=== PATIENT | female | born 1955 | race Caucasian/White ===

== ENCOUNTER 2020-07-29 06:30 | Inpatient (IN) | payer OTHER, MEDICARE, BC ==
[~2020-07-29] VITALS: Ht 167.6 cm; Wt 88.5 kg
[2020-07-29] VITALS (13 sets, daily range): BP systolic 97–160; BP diastolic 58–118
[~2020-07-29 06:30] MED LIST: AMLO1TAB15 PO; ASPI-611 PO; ATOR20TA PO; CITA20TA19 PO; ETOD-78 PO; METO25TA6 PO
[2020-07-29] MEDS ORDERED: methylPREDNISolone sod succ 125mg/2ml vial IV ONE (06:40)
[2020-07-29] MEDS ORDERED: ipratropium/albuterol 3ml nebule NEB ONE (06:40)
[2020-07-29] MEDS ORDERED: hydrALAZINE 20mg/ml inj. IV ONE (06:45)
[2020-07-29] MEDS ORDERED: midazolam 2 mg/2 ml injection IV ONE ×2 (06:50→08:55)
--- NOTE | 2020-07-29 06:50 | NUR ---
Attempted to call patients charlie at listed number on chart. Unable to get into contact with him so I left a voice mail to call ED back. I was able to unlock patients cell phone and found a Naeem contact. I called him and questioned if he was Charlie South he stated that he was. I continued to update on events prior to arrival at hospital and current care. I stated to Charlie that he can come down to ED and see his , as well as, assist with gathering needed information for patients care. He agreed and stated that he would have his son drive him down.
[2020-07-29] MEDS ORDERED: ipratropium/albuterol 3ml nebule NEB PRN ×2 (06:55→08:55)
--- NOTE | 2020-07-29 07:00 | NUR ---
Lab called regarding negative results of COVID swab. Notified Valeriano SIFUENTES and Sebastian HUERTA regarding results.
[2020-07-29 07:16] LABS: ABG BASE EXCESS -11.3 mmol/L (-2.0-2.0); ABG HCO3 16.9 mmol/L (22.0-26.0); ABG OXYGEN SATURATION 89.7 % (94-97); ABG PCO2 (T) 46.6 mmHg (32.0-45.0); ABG PO2 (T) 71.5 mmHg (75.0-100.0); ALLEN'S TEST POSITIVE; FCOHb 3.3 % (0.0-3.9); FMetHb 0.3 % (0.0-1.5); FO2Hb 86.5 % (94-97); PEEP 5 cm H2O; RESPIRATORY RATE 22 b/min; TIDAL VOLUME 450 mL
[2020-07-29] MEDS: normal saline 1000ml 1,000 ML IV SCH ×2 (07:20→13:11)
[2020-07-29] MEDS ORDERED: CefTRIAXone/D5W-Rocephin 1gm 50 ML IV ONE (07:20)
[2020-07-29] MEDS ORDERED: azithromycin/NS 500mg/250ml 250 ML IV ONE (07:20)
[2020-07-29] MEDS: midazolam 100mg in NS 100ml 100 ML IV PRN (07:21)
[2020-07-29 07:22] LABS: BASOPHILS # (AUTO) 0.1 X10'3 (0-0.2); BASOPHILS % (AUTO) 0.5 % (0-1); EOSINOPHILS # (AUTO) 0.1 X10'3 (0-0.9); EOSINOPHILS % (AUTO) 0.7 % (0-6); HEMATOCRIT 42.6 % (35.0-45.0); HEMOGLOBIN 14.2 g/dl (12.0-16.0); LYMPHOCYTES % (AUTO) 9.7 % (21-51); MEAN CORPUSCULAR HEMOGLOBIN 33.1 PG (27.0-31.0); MEAN CORPUSCULAR HGB CONC 33.4 g/dL (33.0-36.5); MEAN CORPUSCULAR VOLUME 99.3 FL (78-98); MEAN PLATELET VOLUME 8.1 FL (7.4-10.4); MONOCYTES # (AUTO) 0.4 X10'3 (0-0.9); MONOCYTES % (AUTO) 4.2 % (2-12); NEUTROPHILS # (AUTO) 9.1 X10'3 (1.8-7.7); NEUTROPHILS % (AUTO) 84.9 % (42-75); PLATELET COUNT 246 X10'3 (140-440); RED BLOOD COUNT 4.29 X10'6 (4.20-5.60); RED CELL DISTRIBUTION WIDTH 14.6 % (11.5-14.5); WHITE BLOOD COUNT 10.7 X10'3 (4.5-11.0)
[2020-07-29 07:43] LABS: ALANINE AMINOTRANSFERASE 285 U/L (12-78); ALBUMIN 2.6 G/DL (3.4-5.0); ALBUMIN/GLOBULIN RATIO 0.8 (1.1-1.5); ALKALINE PHOSPHATASE 103 IU/L (46-116); ANION GAP 13 (8-16); ASPARTATE AMINO TRANSFERASE 300 U/L (10-37); BILIRUBIN,TOTAL 0.7 MG/DL (0.1-1.0); BLOOD UREA NITROGEN 12 MG/DL (7-18); BUN/CREATININE RATIO 9.9 (6.6-38.0); CALCIUM 9.1 MG/DL (8.5-10.1); CHLORIDE 108 MMOL/L (99-107); CREATININE 1.21 MG/DL (0.40-0.90); GLUCOSE 280 MG/DL (70-104); POTASSIUM 3.7 MMOL/L (3.5-5.1); SODIUM 144 MMOL/L (135-145); TOTAL CARBON DIOXIDE 23.3 MMOL/L (24-32); TOTAL PROTEIN 5.9 G/DL (6.4-8.2); eGFR 45 ML/MIN
[2020-07-29] MEDS ORDERED: calcium chloride 100 MG/1 ML inj IV ONE (08:00)
[2020-07-29] MEDS ORDERED: epiNEPHrine 0.1mg/ml 10ml syringe ONE (08:00)
[2020-07-29] MEDS ORDERED: rocuronium 10mg/ml inj IV ONE (08:00)
[2020-07-29] MEDS ORDERED: sodium bicarbonate (8.4%) 1 mEq/ml syringe ONE (08:00)
[2020-07-29] MEDS: FENTANYL-0.9 % NACL/PF 100 ML IV PRN ×2 (08:01→23:10)
--- NOTE | 2020-07-29 08:25 | NUR ---
Pt arrived via EMS. Had witnessed arrest, was down for approx 5 min. CPR initiated by fire at 610, 4 round of epi given en route, PEA. Prior to arrest pt complained of difficulty breathing. Pt arrived to [facility] ER at 0624. IO in placed but dislodged on arrival (L tibia). CPR continued. RT and MD at bedside. 06 IO initiated 06 1st dose Epi 06 Bicarb 0630 Pulse check (PEA, rocuronium 70mg, intubation initiated 0631 2nd dose epi, CPR resumed 0632 intubation (8mm, 21 at teeth), bilateral breath sounds, positive color change, 0633 calcium chloride 0635 CPR stopped, Pulse check via ultrasound, HR 147, RR 15 0636 Albuterol treatment initiated
--- NOTE | 2020-07-29 08:30 | NUR ---
and son at bedside. Updated on pt condition by .
[2020-07-29] MEDS ORDERED: normal saline 1000ml 1,000 ML IV ONE (08:40)
--- NOTE | 2020-07-29 08:46 | NUR ---
titrated versed from 1mg/hr to 2mg/hr per protocol.
[2020-07-29] MEDS ORDERED: CISatracurium **Bolus** 2 mg/ml inj IV PRN (08:55)
[2020-07-29] MEDS ORDERED: ondansetron/PF 4mg/2ml inj IV PRN (08:55)
[2020-07-29] MEDS ORDERED: fentaNYL/PF 50MCG/1 ML 2ML syringe IV PRN (08:55)
[2020-07-29] MEDS ORDERED: potassium Cl 20 mEq SR tablet PO PRN ×2 (08:55)
[2020-07-29] MEDS ORDERED: acetaminophen 325mg tablet PO PRN ×2 (08:55)
[2020-07-29] MEDS ORDERED: midazolam 100mg in NS 100ml 100 ML IV PRN (08:55)
[2020-07-29] MEDS ORDERED: FENTANYL-0.9 % NACL/PF 100 ML IV PRN (08:55)
[2020-07-29] MEDS ORDERED: LIDOcaine 2% 10ml TOPICAL JELLY (Urojet) TP ONE (08:55)
[2020-07-29] MEDS ORDERED: potassium CL 10mEq/100ml bag 100 ML IV PRN ×2 (08:55)
--- NOTE | 2020-07-29 09:05 | NUR ---
Pt is restless, tachpneic, biting ET tube. Fentanyl titrated from 35mcg/hr to 50 mcg/hr.
--- NOTE | 2020-07-29 09:21 | NUR ---
Versed titrated from 2mg/hr to 3mg/hr
[2020-07-29] MEDS ORDERED: BUPR150T6 PO (09:27)
[2020-07-29] MEDS ORDERED: LOSA100T57 PO (09:27)
[2020-07-29] MEDS ORDERED: CHOL100025 PO (09:30)
[2020-07-29 09:35] LABS: ABG BASE EXCESS -8.6 mmol/L (-2.0-2.0); ABG HCO3 19.7 mmol/L (22.0-26.0); ABG OXYGEN SATURATION 95.4 % (94-97); ABG PCO2 (T) 50.4 mmHg (32.0-45.0); ALLEN'S TEST POSITIVE; FCOHb 1.7 % (0.0-3.9); FMetHb 0.2 % (0.0-1.5); FO2Hb 93.6 % (94-97); PEEP 10 cm H2O; RESPIRATORY RATE 22 b/min; TIDAL VOLUME 475 mL; TOTAL HEMOGLOBIN 16.8 G/dl (12.0-16.0)
--- NOTE | 2020-07-29 10:04 | NUR ---
Pt continues to appear restles, biting ET tube. Versed increased to 4mg/hr. Fentanyl increased to 65mcg/hr.
--- NOTE | 2020-07-29 10:48 | NUR ---
Naeem () ([id number]) cell: [phone] Dakotah (son) [phone]
[2020-07-29] MEDS: ipratropium/albuterol 3ml nebule NEB SCH ×4 (11:28→23:12)
[2020-07-29 11:51] LABS: OXYGEN SATURATION (MIXED VEN) 47.8 % (60-80); PO2 MIXED VENOUS (TEMP COR) 32.8 mmHg (35-46)
[2020-07-29] MEDS ORDERED: dextrose 50%-water 50ml dispensing syringe IV PRN (12:25)
[2020-07-29] MEDS: piperacillin/tazo 3.375gm/50ml 50 ML IV SCH ×2 (12:29→16:18)
[2020-07-29] MEDS ORDERED: ATOR40TA72 PO (13:00)
[2020-07-29] MEDS: insulin Lispro (HumaLOG) vial - multi-dose SQ SCH ×2 (13:00→18:00)
[2020-07-29] MEDS ORDERED: METO-384 PO (13:00)
[2020-07-29] MEDS ORDERED: ALBU18HF2 IH (13:00)
[2020-07-29] MEDS: Insulin Reg/NS 100units/100mL 100 ML IV SCH (13:03)
[2020-07-29] MEDS: CISatracurium besylate inj. 100 MG in normal saline 100ml IV soln 90 ML IV PRN ×2 (13:07→19:02)
[2020-07-29 14:51] LABS: PO2 MIXED VENOUS (TEMP COR) 35.4 mmHg (35-46)
[2020-07-29 14:55] LABS: ABG BASE EXCESS -1.1 mmol/L (-2.0-2.0); ABG HCO3 20.4 mmol/L (22.0-26.0); ABG OXYGEN SATURATION 96.8 % (94-97); ABG PCO2 (T) 25.2 mmHg (32.0-45.0); ABG PO2 (T) 74.6 mmHg (75.0-100.0); ALLEN'S TEST POSITIVE; FCOHb 0.4 % (0.0-3.9); FMetHb 0.2 % (0.0-1.5); FO2Hb 96.2 % (94-97); PATIENT TEMPERATURE 35.6; PEEP 10 cm H2O; RESPIRATORY RATE 22 b/min; TIDAL VOLUME 475 mL; TOTAL HEMOGLOBIN 15.4 G/dl (12.0-16.0)
--- NOTE | 2020-07-29 15:57 | NUR ---
Initial: Pt admit and intubated s/p [id number] cardiac arrest. Pt on hypothermia protocol per H&P. No TF consult at this time. Recommendations below for if expected prolonged intubation and to receive nutrition support. Will continue to follow closely. Recommendations: 1) IF TF, continuous Vital High Protein with goal rate of 60 mL/hr. To begin at 20 mL/hr and advance by 20 mL Q8H as tolerated to goal rate 2) IF TF, additional 200 mL water flush Q4H 3) IF TF, prealbumin q Saturday/; daily weights Addendum: 07/29/20 at [address] Amended: Links added.
[2020-07-29 16:44] LABS: ALBUMIN 2.9 G/DL (3.4-5.0); ANION GAP 13 (8-16); BLOOD UREA NITROGEN 14 MG/DL (7-18); BUN/CREATININE RATIO 16.9 (6.6-38.0); CALCIUM 8.6 MG/DL (8.5-10.1); CHLORIDE 109 MMOL/L (99-107); CREATININE 0.83 MG/DL (0.40-0.90); GLUCOSE 160 MG/DL (70-104); MAGNESIUM 1.8 MG/DL (1.5-2.4); SODIUM 144 MMOL/L (135-145); TOTAL CARBON DIOXIDE 22.2 MMOL/L (24-32); TROPONIN I 0.14 NG/ML (0.0-0.05); eGFR 69 ML/MIN
[2020-07-29 16:45] LABS: POTASSIUM 2.7 MMOL/L (3.5-5.1)
[2020-07-29] MEDS: potassium Cl 20mEq/100mL bag 100 ML IV PRN ×5 (16:54→23:32)
[2020-07-29 17:07] LABS: PHOSPHORUS 2.6 MG/DL (2.3-4.5)
--- NOTE | 2020-07-29 17:10 | NUR ---
Critical K of 2.7; aware to replace per protocol
--- NOTE | 2020-07-29 17:19 | NUR ---
HR maintaining 47-50 bpm with stable blood pressure in the 130s systolic. HR drops as low as 42bpm. Dr. Batres aware with orders to increase goal temperature rate to 34-35degrees Celsius if patient becomes more symptomatic or if HR drops and maintains below 40bpm.
--- NOTE | 2020-07-29 18:18 | NUR ---
Problems reprioritized. Patient report given, questions answered & plan of care reviewed with Abimbola SIFUENTES.
--- NOTE | 2020-07-29 18:30 | NUR ---
Patient in room ICU 2045. I have received report from Rusty SIFUENTES and had the opportunity to ask questions and assume patient care.
[2020-07-29] MEDS ORDERED: docusate sod 100mg capsule PO SCH (20:00)
[2020-07-29] MEDS: lactobacillus rhamnosus 10,000 MMU CELLS/CAPSULE PO SCH (20:07)
[2020-07-29] MEDS: mineral oil/petrolatum ophthal oint EACHEYE SCH (20:07)
[2020-07-29] MEDS: heparin, porcine 5000 units/ml vial SQ SCH (20:07)
[2020-07-29] MEDS: famotidine/PF 10 mg/ml inj IV SCH (20:07)
[2020-07-29 21:16] LABS: ABG BASE EXCESS -3.1 mmol/L (-2.0-2.0); ABG OXYGEN SATURATION 93.3 % (94-97); ABG PCO2 (T) 26.7 mmHg (32.0-45.0); ALLEN'S TEST POSITIVE; FCOHb 0.2 % (0.0-3.9); FMetHb 0.1 % (0.0-1.5); PATIENT TEMPERATURE 33.6; PEEP 5 cm H2O; RESPIRATORY RATE 20 b/min; TIDAL VOLUME 400 mL; TOTAL HEMOGLOBIN 14.9 G/dl (12.0-16.0)
--- NOTE | 2020-07-29 22:00 | NUR ---
Received critical lab values of K 2.9 and Lactic 5.3. Notified Shar Lee NP. New orders received. Will continue to monitor closely.
[2020-07-29 22:16] LABS: ALBUMIN 2.8 G/DL (3.4-5.0); ANION GAP 9 (8-16); BLOOD UREA NITROGEN 14 MG/DL (7-18); BUN/CREATININE RATIO 15.4 (6.6-38.0); CALCIUM 8.9 MG/DL (8.5-10.1); CHLORIDE 108 MMOL/L (99-107); CREATININE 0.91 MG/DL (0.40-0.90); GLUCOSE 148 MG/DL (70-104); MAGNESIUM 1.8 MG/DL (1.5-2.4); SODIUM 142 MMOL/L (135-145); TOTAL CARBON DIOXIDE 24.7 MMOL/L (24-32); eGFR 62 ML/MIN
[2020-07-29 22:18] LABS: POTASSIUM 2.9 MMOL/L (3.5-5.1)
[2020-07-29] MEDS ORDERED: normal saline 500ml IV soln 500 ML IV ONE (22:30)
[2020-07-29] MEDS ORDERED: albumin (Human) 5% 250ml 250 ML IV ONE ×2 (22:30)
[2020-07-30] VITALS (24 sets, daily range): BP systolic 101–138; BP diastolic 52–73
[2020-07-30] MEDS: piperacillin/tazo 3.375gm/50ml 50 ML IV SCH ×3 (00:02→16:06)
[2020-07-30] MEDS: potassium Cl 20mEq/100mL bag 100 ML IV PRN ×4 (00:52→05:45)
[2020-07-30] MEDS: ipratropium/albuterol 3ml nebule NEB SCH ×6 (02:51→23:07)
[2020-07-30 03:11] LABS: ABG BASE EXCESS -5.8 mmol/L (-2.0-2.0); ABG HCO3 18.5 mmol/L (22.0-26.0); ABG OXYGEN SATURATION 92.6 % (94-97); ABG PCO2 (T) 27.9 mmHg (32.0-45.0); ABG PO2 (T) 54.3 mmHg (75.0-100.0); ALLEN'S TEST POSITIVE; FMetHb 0.1 % (0.0-1.5); FO2Hb 92.5 % (94-97); PATIENT TEMPERATURE 33.2; PEEP 5 cm H2O; RESPIRATORY RATE 20 b/min; TIDAL VOLUME 400 mL; TOTAL HEMOGLOBIN 13.5 G/dl (12.0-16.0)
[2020-07-30 03:50] LABS: BASOPHILS % (AUTO) 0.3 % (0-1); EOSINOPHILS % (AUTO) 0 % (0-6); HEMATOCRIT 39.4 % (35.0-45.0); HEMOGLOBIN 13.1 g/dl (12.0-16.0); LYMPHOCYTES # (AUTO) 0.6 X10'3 (1.1-4.8); LYMPHOCYTES % (AUTO) 6.4 % (21-51); MEAN CORPUSCULAR HGB CONC 33.2 g/dL (33.0-36.5); MEAN CORPUSCULAR VOLUME 99.3 FL (78-98); MEAN PLATELET VOLUME 8.2 FL (7.4-10.4); MONOCYTES # (AUTO) 0.9 X10'3 (0-0.9); MONOCYTES % (AUTO) 9.7 % (2-12); NEUTROPHILS # (AUTO) 8.2 X10'3 (1.8-7.7); NEUTROPHILS % (AUTO) 83.6 % (42-75); PLATELET COUNT 177 X10'3 (140-440); RED BLOOD COUNT 3.97 X10'6 (4.20-5.60); RED CELL DISTRIBUTION WIDTH 14.3 % (11.5-14.5); WHITE BLOOD COUNT 9.8 X10'3 (4.5-11.0)
[2020-07-30 04:07] LABS: ALANINE AMINOTRANSFERASE 220 U/L (12-78); ALBUMIN 3.2 G/DL (3.4-5.0); ALKALINE PHOSPHATASE 73 IU/L (46-116); ANION GAP 13 (8-16); ASPARTATE AMINO TRANSFERASE 116 U/L (10-37); BILIRUBIN,TOTAL 0.6 MG/DL (0.1-1.0); BLOOD UREA NITROGEN 12 MG/DL (7-18); BUN/CREATININE RATIO 13.3 (6.6-38.0); CALCIUM 8.6 MG/DL (8.5-10.1); CHLORIDE 109 MMOL/L (99-107); GLUCOSE 124 MG/DL (70-104); MAGNESIUM 1.8 MG/DL (1.5-2.4); PHOSPHORUS 3.1 MG/DL (2.3-4.5); POTASSIUM 3.4 MMOL/L (3.5-5.1); SODIUM 143 MMOL/L (135-145); TOTAL PROTEIN 6.3 G/DL (6.4-8.2); TROPONIN I 0.05 NG/ML (0.0-0.05); eGFR 63 ML/MIN
--- NOTE | 2020-07-30 04:24 | NUR ---
received critical LA 6.2. Notified Shar Lee NP. No new orders, will continue to monitor
[2020-07-30] MEDS: midazolam 100mg in NS 100ml 100 ML IV PRN ×2 (06:11→18:49)
--- NOTE | 2020-07-30 06:17 | NUR ---
Problems reprioritized. Patient report given, questions answered & plan of care reviewed with Rusty SIFUENTES.
--- NOTE | 2020-07-30 07:10 | NUR ---
Critical Lactic Acid 5.7, trending down, MD aware of elevated results
[2020-07-30] MEDS: lactobacillus rhamnosus 10,000 MMU CELLS/CAPSULE PO SCH ×2 (07:28→19:59)
[2020-07-30] MEDS: famotidine/PF 10 mg/ml inj IV SCH ×2 (07:28→19:58)
[2020-07-30] MEDS: heparin, porcine 5000 units/ml vial SQ SCH ×2 (07:29→19:59)
[2020-07-30] MEDS: docusate sodium 100mg/10ml UD cup PO SCH ×2 (07:31→19:58)
[2020-07-30] MEDS: CISatracurium besylate inj. 100 MG in normal saline 100ml IV soln 90 ML IV PRN ×2 (08:02→17:55)
[2020-07-30] MEDS: insulin Lispro (HumaLOG) vial - multi-dose SQ SCH ×2 (08:48→12:02)
[2020-07-30 09:21] LABS: ABG BASE EXCESS -7.3 mmol/L (-2.0-2.0); ABG HCO3 17.1 mmol/L (22.0-26.0); ABG OXYGEN SATURATION 96.7 % (94-97); ABG PCO2 (T) 26.3 mmHg (32.0-45.0); ABG PO2 (T) 73.6 mmHg (75.0-100.0); ALLEN'S TEST POSITIVE; FCOHb 0.3 % (0.0-3.9); FMetHb 0.2 % (0.0-1.5); FO2Hb 96.2 % (94-97); PATIENT TEMPERATURE 32.9; PEEP 5 cm H2O; RESPIRATORY RATE 20 b/min; TIDAL VOLUME 400 mL; TOTAL HEMOGLOBIN 13.6 G/dl (12.0-16.0)
[2020-07-30 09:55] LABS: ALBUMIN 2.8 G/DL (3.4-5.0); ANION GAP 10 (8-16); BLOOD UREA NITROGEN 14 MG/DL (7-18); BUN/CREATININE RATIO 20.9 (6.6-38.0); CALCIUM 8.4 MG/DL (8.5-10.1); CHLORIDE 110 MMOL/L (99-107); CREATININE 0.67 MG/DL (0.40-0.90); GLUCOSE 156 MG/DL (70-104); MAGNESIUM 1.8 MG/DL (1.5-2.4); PHOSPHORUS 3.5 MG/DL (2.3-4.5); POTASSIUM 3.8 MMOL/L (3.5-5.1); SODIUM 141 MMOL/L (135-145); TROPONIN I < 0.04 NG/ML (0.0-0.05); eGFR 88 ML/MIN
[2020-07-30] MEDS: FENTANYL-0.9 % NACL/PF 100 ML IV PRN ×2 (10:10→21:27)
--- NOTE | 2020-07-30 11:00 | NUR ---
Med rec given to Dr. Stevens during rounds to complete.
--- NOTE | 2020-07-30 11:12 | NUR ---
Michele Consult: Michele 11; no edema and skin intact. Addendum: 07/30/20 at [address] Amended: Links added.
[2020-07-30] MEDS: normal saline 1000ml 1,000 ML IV SCH ×2 (11:52→18:50)
--- NOTE | 2020-07-30 12:03 | NUR ---
TF Consult: OGTF to start today per MD. TF recs below using 89kg most accurate scaled wt at this time. Will monitor for EN tolerance and adjustment needs as medically indicated this admit. Recommendations: 1) Continuous OGTF using Vital High Protein at 70mL/hr goal; to provide 1680ml volume, 1411ml free water, 1680 kcals, and 147g protein. 2) additional water flush 200ml Q4H 3) prealbumin q Saturday/; daily weights 4) routine bowel care 5) monitor for EN tolerance Addendum: 07/30/20 at [address] Amended: Links added.
[2020-07-30] MEDS: insulin regular, human U-100 3ml vial - multi-dose SQ SCH ×2 (13:00→17:56)
[2020-07-30 15:24] LABS: ALBUMIN 2.7 G/DL (3.4-5.0); ANION GAP 9 (8-16); BLOOD UREA NITROGEN 12 MG/DL (7-18); CALCIUM 8.8 MG/DL (8.5-10.1); CHLORIDE 111 MMOL/L (99-107); CREATININE 0.63 MG/DL (0.40-0.90); GLUCOSE 110 MG/DL (70-104); MAGNESIUM 1.8 MG/DL (1.5-2.4); PHOSPHORUS 3.5 MG/DL (2.3-4.5); POTASSIUM 3.9 MMOL/L (3.5-5.1); SODIUM 141 MMOL/L (135-145); TOTAL CARBON DIOXIDE 21.5 MMOL/L (24-32); eGFR > 90 ML/MIN
[2020-07-30 16:46] LABS: ABG HCO3 16.5 mmol/L (22.0-26.0); ABG OXYGEN SATURATION 97.8 % (94-97); ABG PCO2 (T) 23.8 mmHg (32.0-45.0); ABG PO2 (T) 81.6 mmHg (75.0-100.0); ALLEN'S TEST POSITIVE; FCOHb 0.2 % (0.0-3.9); FO2Hb 97.6 % (94-97); PEEP 5 cm H2O; RESPIRATORY RATE 20 b/min; TIDAL VOLUME 400 mL; TOTAL HEMOGLOBIN 13.7 G/dl (12.0-16.0)
--- NOTE | 2020-07-30 18:10 | NUR ---
Problems reprioritized. Patient report given, questions answered & plan of care reviewed with Abimbola SIFUENTES.
--- NOTE | 2020-07-30 18:30 | NUR ---
Patient in room ICU 2045. I have received report from Rusty SIFUENTES and had the opportunity to ask questions and assume patient care.
[2020-07-30] MEDS: mineral oil/petrolatum ophthal oint EACHEYE SCH (19:59)
[2020-07-30] MEDS ORDERED: NORepinephrine 8mg/ 250ml NS 250 ML IV ONE (20:33)
--- NOTE | 2020-07-30 20:45 | NUR ---
Patient became hypotensive, notified Shar Lee NP. New orders received for Levo, When Levo started at starting rate patient became hypertensive and bradycardic for approx 2 min. Levo stopped and became hypotensive again. Levo started and lower rate. Will continue to monitor closely.
[2020-07-30] MEDS: NORepinephrine 8mg/ 250ml NS 250 ML IV PRN (21:06)
[2020-07-30 21:11] LABS: ABG BASE EXCESS -6.4 mmol/L (-2.0-2.0); ABG OXYGEN SATURATION 95.8 % (94-97); ABG PCO2 (T) 24.6 mmHg (32.0-45.0); ABG PO2 (T) 67.7 mmHg (75.0-100.0); ALLEN'S TEST POSITIVE; FCOHb 0.2 % (0.0-3.9); FMetHb 0.2 % (0.0-1.5); FO2Hb 95.4 % (94-97); PATIENT TEMPERATURE 33.8; PEEP 5 cm H2O; RESPIRATORY RATE 20 b/min; TIDAL VOLUME 400 mL; TOTAL HEMOGLOBIN 13.6 G/dl (12.0-16.0)
[2020-07-30 21:43] LABS: ALBUMIN 2.7 G/DL (3.4-5.0); ANION GAP 8 (8-16); BLOOD UREA NITROGEN 13 MG/DL (7-18); BUN/CREATININE RATIO 18.6 (6.6-38.0); CALCIUM 8.5 MG/DL (8.5-10.1); CHLORIDE 112 MMOL/L (99-107); GLUCOSE 135 MG/DL (70-104); MAGNESIUM 1.6 MG/DL (1.5-2.4); PHOSPHORUS 3.6 MG/DL (2.3-4.5); SODIUM 141 MMOL/L (135-145); TOTAL CARBON DIOXIDE 21.1 MMOL/L (24-32); eGFR 84 ML/MIN
[2020-07-30] MEDS: Insulin Reg/NS 100units/100mL 100 ML IV SCH (21:45)
[2020-07-30] MEDS ORDERED: albumin (Human) 5% 250ml 250 ML IV ONE ×2 (23:55)
[2020-07-31] VITALS (24 sets, daily range): BP systolic 92–146; BP diastolic 47–80
--- NOTE | 2020-07-31 | NUR ---
Decreased urine output over the course of the last couple hours. Last hour zero urine. Notified Shar Lee NP. New orders received. Will continue to monitor.
[2020-07-31] MEDS: piperacillin/tazo 3.375gm/50ml 50 ML IV SCH ×4 (00:07→23:38)
[2020-07-31] MEDS: mineral oil/petrolatum ophthal oint EACHEYE SCH ×4 (02:06→19:39)
[2020-07-31 03:09] LABS: BASOPHILS % (AUTO) 0.2 % (0-1); EOSINOPHILS % (AUTO) 0.2 % (0-6); HEMOGLOBIN 11.9 g/dl (12.0-16.0); LYMPHOCYTES # (AUTO) 0.9 X10'3 (1.1-4.8); LYMPHOCYTES % (AUTO) 6.4 % (21-51); MEAN CORPUSCULAR HEMOGLOBIN 32.3 PG (27.0-31.0); MEAN CORPUSCULAR HGB CONC 33.1 g/dL (33.0-36.5); MEAN CORPUSCULAR VOLUME 97.5 FL (78-98); MEAN PLATELET VOLUME 8.7 FL (7.4-10.4); MONOCYTES % (AUTO) 6.9 % (2-12); NEUTROPHILS # (AUTO) 12.2 X10'3 (1.8-7.7); NEUTROPHILS % (AUTO) 86.3 % (42-75); PLATELET COUNT 186 X10'3 (140-440); RED BLOOD COUNT 3.69 X10'6 (4.20-5.60); RED CELL DISTRIBUTION WIDTH 14.6 % (11.5-14.5); WHITE BLOOD COUNT 14.2 X10'3 (4.5-11.0)
[2020-07-31 03:26] LABS: ALANINE AMINOTRANSFERASE 146 U/L (12-78); ALBUMIN 3.1 G/DL (3.4-5.0); ALBUMIN/GLOBULIN RATIO 1.1 (1.1-1.5); ALKALINE PHOSPHATASE 57 IU/L (46-116); ANION GAP 9 (8-16); ASPARTATE AMINO TRANSFERASE 43 U/L (10-37); BILIRUBIN,TOTAL 0.6 MG/DL (0.1-1.0); BLOOD UREA NITROGEN 14 MG/DL (7-18); BUN/CREATININE RATIO 18.4 (6.6-38.0); CALCIUM 8.3 MG/DL (8.5-10.1); CHLORIDE 109 MMOL/L (99-107); CREATININE 0.76 MG/DL (0.40-0.90); GLUCOSE 140 MG/DL (70-104); MAGNESIUM 1.6 MG/DL (1.5-2.4); PHOSPHORUS 3.7 MG/DL (2.3-4.5); POTASSIUM 4.2 MMOL/L (3.5-5.1); SODIUM 137 MMOL/L (135-145); TOTAL CARBON DIOXIDE 19.3 MMOL/L (24-32); TOTAL PROTEIN 5.8 G/DL (6.4-8.2); eGFR 76 ML/MIN
[2020-07-31 03:46] LABS: ABG BASE EXCESS -7.1 mmol/L (-2.0-2.0); ABG HCO3 17.4 mmol/L (22.0-26.0); ABG OXYGEN SATURATION 95.7 % (94-97); ABG PCO2 (T) 30.2 mmHg (32.0-45.0); ABG PO2 (T) 76.6 mmHg (75.0-100.0); ALLEN'S TEST POSITIVE; FCOHb 0.3 % (0.0-3.9); FMetHb 0.2 % (0.0-1.5); FO2Hb 95.2 % (94-97); PATIENT TEMPERATURE 35.6; PEEP 5 cm H2O; RESPIRATORY RATE 20 b/min; TIDAL VOLUME 400 mL
--- NOTE | 2020-07-31 03:52 | NUR ---
patient continues to have decreased urine output. Bladder scanned patient and zero urine in bladder. Notified Shar Lee NP. No new orders at this time. Will continue to monitor.
[2020-07-31] MEDS: ipratropium/albuterol 3ml nebule NEB SCH ×6 (03:54→23:08)
[2020-07-31] MEDS: CISatracurium besylate inj. 100 MG in normal saline 100ml IV soln 90 ML IV PRN ×2 (04:23→16:40)
--- NOTE | 2020-07-31 06:27 | NUR ---
Problems reprioritized. Patient report given, questions answered & plan of care reviewed with Bridget SIFUENTES.
--- NOTE | 2020-07-31 07:02 | NUR ---
Patient in room ICU 2045. I have received report from Abimbola SIFUENTES and had the opportunity to ask questions and assume patient care. Addendum: 07/31/20 at 0702 by Bridget Tom RN Amended: Links added.
[2020-07-31] MEDS: heparin, porcine 5000 units/ml vial SQ SCH ×2 (07:32→19:38)
[2020-07-31] MEDS: famotidine/PF 10 mg/ml inj IV SCH ×2 (07:32→19:38)
[2020-07-31] MEDS: lactobacillus rhamnosus 10,000 MMU CELLS/CAPSULE PO SCH ×2 (07:32→19:38)
[2020-07-31] MEDS: docusate sodium 100mg/10ml UD cup PO SCH ×2 (07:33→19:38)
[2020-07-31] MEDS: midazolam 100mg in NS 100ml 100 ML IV PRN ×2 (08:59→19:56)
[2020-07-31] MEDS: FENTANYL-0.9 % NACL/PF 100 ML IV PRN ×2 (09:00→19:57)
[2020-07-31] MEDS: insulin regular, human U-100 3ml vial - multi-dose SQ SCH ×3 (09:00→18:00)
[2020-07-31 09:08] LABS: ALBUMIN 2.5 G/DL (3.4-5.0); ANION GAP 10 (8-16); BLOOD UREA NITROGEN 14 MG/DL (7-18); BUN/CREATININE RATIO 21.9 (6.6-38.0); CALCIUM 6.9 MG/DL (8.5-10.1); CHLORIDE 114 MMOL/L (99-107); CREATININE 0.64 MG/DL (0.40-0.90); GLUCOSE 126 MG/DL (70-104); MAGNESIUM 1.4 MG/DL (1.5-2.4); POTASSIUM 4.1 MMOL/L (3.5-5.1); SODIUM 141 MMOL/L (135-145); TOTAL CARBON DIOXIDE 17.1 MMOL/L (24-32); eGFR > 90 ML/MIN
[2020-07-31 09:20] LABS: ABG BASE EXCESS -7.5 mmol/L (-2.0-2.0); ABG HCO3 17.1 mmol/L (22.0-26.0); ABG OXYGEN SATURATION 94.7 % (94-97); ABG PCO2 (T) 32.2 mmHg (32.0-45.0); ABG PO2 (T) 78.4 mmHg (75.0-100.0); ALLEN'S TEST POSITIVE; FCOHb 0.3 % (0.0-3.9); FMetHb 0.2 % (0.0-1.5); FO2Hb 94.2 % (94-97); PATIENT TEMPERATURE 36.9; PEEP 5 cm H2O; RESPIRATORY RATE 20 b/min; TIDAL VOLUME 400 mL; TOTAL HEMOGLOBIN 13.2 G/dl (12.0-16.0)
--- NOTE | 2020-07-31 12:42 | NUR ---
Weaning Levophed. Dr. Stevens just in to see pt. No changes in ordered plan of care for this shift.
[2020-07-31] MEDS: normal saline 1000ml 1,000 ML IV SCH ×2 (14:15→16:39)
--- NOTE | 2020-07-31 14:43 | NUR ---
Turned Nimbex off and pt. began to stanford the vent with tachycardia, SP02 of 77% and BIS went up to 71. Nimbex turned back on.
[2020-07-31 14:55] LABS: ALBUMIN 2.8 G/DL (3.4-5.0); ANION GAP 6 (8-16); BLOOD UREA NITROGEN 15 MG/DL (7-18); BUN/CREATININE RATIO 17.4 (6.6-38.0); CALCIUM 8.3 MG/DL (8.5-10.1); CHLORIDE 111 MMOL/L (99-107); CREATININE 0.86 MG/DL (0.40-0.90); GLUCOSE 123 MG/DL (70-104); MAGNESIUM 1.7 MG/DL (1.5-2.4); SODIUM 140 MMOL/L (135-145); TOTAL CARBON DIOXIDE 23.5 MMOL/L (24-32); eGFR 66 ML/MIN
[2020-07-31 15:11] LABS: ABG BASE EXCESS -7.9 mmol/L (-2.0-2.0); ABG HCO3 17.5 mmol/L (22.0-26.0); ABG OXYGEN SATURATION 91.1 % (94-97); ABG PCO2 (T) 36.5 mmHg (32.0-45.0); ALLEN'S TEST POSITIVE; FCOHb 0.1 % (0.0-3.9); FMetHb 0.2 % (0.0-1.5); FO2Hb 90.8 % (94-97); PATIENT TEMPERATURE 37.4; PEEP 5 cm H2O; RESPIRATORY RATE 20 b/min; TIDAL VOLUME 400 mL; TOTAL HEMOGLOBIN 13.4 G/dl (12.0-16.0)
--- NOTE | 2020-07-31 18:11 | NUR ---
Problems reprioritized. Patient report given, questions answered & plan of care reviewed with Abimboal SIFUENTES.
--- NOTE | 2020-07-31 18:15 | NUR ---
Patient in room ICU 2045. I have received report from Bridget SIFUENTES and had the opportunity to ask questions and assume patient care.
[2020-07-31 22:09] LABS: ALBUMIN 2.5 G/DL (3.4-5.0); ANION GAP 9 (8-16); BLOOD UREA NITROGEN 14 MG/DL (7-18); BUN/CREATININE RATIO 19.7 (6.6-38.0); CHLORIDE 108 MMOL/L (99-107); CREATININE 0.71 MG/DL (0.40-0.90); GLUCOSE 105 MG/DL (70-104); POTASSIUM 4.3 MMOL/L (3.5-5.1); SODIUM 138 MMOL/L (135-145); TOTAL CARBON DIOXIDE 21.5 MMOL/L (24-32); eGFR 83 ML/MIN
[2020-08-01] VITALS (23 sets, daily range): BP systolic 86–136; BP diastolic 51–70
[2020-08-01] MEDS: mineral oil/petrolatum ophthal oint EACHEYE SCH ×4 (02:11→19:11)
[2020-08-01 02:49] LABS: BASOPHILS % (AUTO) 0.3 % (0-1); EOSINOPHILS # (AUTO) 0.1 X10'3 (0-0.9); EOSINOPHILS % (AUTO) 0.8 % (0-6); HEMATOCRIT 34.2 % (35.0-45.0); HEMOGLOBIN 11.3 g/dl (12.0-16.0); LYMPHOCYTES # (AUTO) 0.8 X10'3 (1.1-4.8); LYMPHOCYTES % (AUTO) 10.7 % (21-51); MEAN CORPUSCULAR HEMOGLOBIN 32.5 PG (27.0-31.0); MEAN CORPUSCULAR VOLUME 98.5 FL (78-98); MEAN PLATELET VOLUME 8.7 FL (7.4-10.4); MONOCYTES # (AUTO) 0.8 X10'3 (0-0.9); MONOCYTES % (AUTO) 10.7 % (2-12); NEUTROPHILS # (AUTO) 5.6 X10'3 (1.8-7.7); NEUTROPHILS % (AUTO) 77.5 % (42-75); PLATELET COUNT 139 X10'3 (140-440); RED BLOOD COUNT 3.47 X10'6 (4.20-5.60); RED CELL DISTRIBUTION WIDTH 14.6 % (11.5-14.5); WHITE BLOOD COUNT 7.2 X10'3 (4.5-11.0)
[2020-08-01] MEDS: ipratropium/albuterol 3ml nebule NEB SCH ×6 (02:58→23:12)
[2020-08-01 03:15] LABS: ALANINE AMINOTRANSFERASE 107 U/L (12-78); ALBUMIN 2.4 G/DL (3.4-5.0); ALBUMIN/GLOBULIN RATIO 0.8 (1.1-1.5); ALKALINE PHOSPHATASE 61 IU/L (46-116); ANION GAP 9 (8-16); ASPARTATE AMINO TRANSFERASE 36 U/L (10-37); BILIRUBIN,TOTAL 0.8 MG/DL (0.1-1.0); BLOOD UREA NITROGEN 12 MG/DL (7-18); BUN/CREATININE RATIO 18.5 (6.6-38.0); CALCIUM 8.1 MG/DL (8.5-10.1); CHLORIDE 106 MMOL/L (99-107); CREATININE 0.65 MG/DL (0.40-0.90); GLUCOSE 107 MG/DL (70-104); MAGNESIUM 1.7 MG/DL (1.5-2.4); PHOSPHORUS 3.8 MG/DL (2.3-4.5); POTASSIUM 4.4 MMOL/L (3.5-5.1); PREALBUMIN 14.6 MG/DL (19-36); SODIUM 136 MMOL/L (135-145); TOTAL CARBON DIOXIDE 21.1 MMOL/L (24-32); TOTAL PROTEIN 5.4 G/DL (6.4-8.2); eGFR > 90 ML/MIN
[2020-08-01 03:16] LABS: ABG BASE EXCESS -4.1 mmol/L (-2.0-2.0); ABG HCO3 19.6 mmol/L (22.0-26.0); ABG OXYGEN SATURATION 95.7 % (94-97); ABG PO2 (T) 78.4 mmHg (75.0-100.0); ALLEN'S TEST POSITIVE; FMetHb 0.1 % (0.0-1.5); FO2Hb 95.6 % (94-97); PATIENT TEMPERATURE 36.7; PEEP 5 cm H2O; RESPIRATORY RATE 20 b/min; TIDAL VOLUME 400 mL; TOTAL HEMOGLOBIN 12.1 G/dl (12.0-16.0)
[2020-08-01] MEDS: CISatracurium besylate inj. 100 MG in normal saline 100ml IV soln 90 ML IV PRN ×2 (04:03→22:24)
--- NOTE | 2020-08-01 06:10 | NUR ---
Problems reprioritized. Patient report given, questions answered & plan of care reviewed with Bridget SIFUENTES.
--- NOTE | 2020-08-01 06:28 | NUR ---
Patient in room ICU 2045. I have received report from Abimbola SIFUENTES and had the opportunity to ask questions and assume patient care. Addendum: 08/01/20 at 0628 by Bridget Tom RN Amended: Links added.
[2020-08-01] MEDS: Insulin Reg/NS 100units/100mL 100 ML IV SCH (07:05)
[2020-08-01] MEDS: docusate sodium 100mg/10ml UD cup PO SCH ×2 (07:08→19:10)
[2020-08-01] MEDS: piperacillin/tazo 3.375gm/50ml 50 ML IV SCH ×3 (07:08→23:50)
[2020-08-01] MEDS: famotidine/PF 10 mg/ml inj IV SCH ×2 (07:08→19:10)
[2020-08-01] MEDS: lactobacillus rhamnosus 10,000 MMU CELLS/CAPSULE PO SCH ×2 (07:08→19:11)
[2020-08-01] MEDS: heparin, porcine 5000 units/ml vial SQ SCH ×2 (07:09→19:11)
[2020-08-01] MEDS: FENTANYL-0.9 % NACL/PF 100 ML IV PRN ×3 (07:17→16:17)
[2020-08-01] MEDS: midazolam 100mg in NS 100ml 100 ML IV PRN ×2 (07:17→13:20)
[2020-08-01] MEDS: insulin regular, human U-100 3ml vial - multi-dose SQ SCH ×3 (08:28→18:00)
--- NOTE | 2020-08-01 09:21 | NUR ---
WOC RN here to asses pt's skin for Low Michele score. . No skin issues observed.
--- NOTE | 2020-08-01 09:50 | NUR ---
Spoke with Ritu step- dtr. who stated that she came from [place] to take care of her father and brother because the pt. usually cares for them. She stated that her brother is an alcoholic and her father takes pain meds and sometimes gets confused and does not keep his info. accurate. 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 Ritu stated that she is trying to find family members to care for her brother and father while her step-mother is in the hospital. RN told Ritu that she would give her number to Dr. Batres and ask that he call her as she has many questions for him.
--- NOTE | 2020-08-01 10:22 | NUR ---
ROUNDS NOTE: RN notified Dr. Batres of stopping the Nimbex yesterday and pt. did not ventilate with SP02 77% and HR 127. Dr. Batres stated to stop the Nimbex and turn up the sedation. Stated to turn down the FI02. Turned down to 30% from 40%.
[2020-08-01] MEDS: methylnaltrexone br 12mg/0.6ml inj***SubQ only SQ SCH (11:04)
--- NOTE | 2020-08-01 11:24 | NUR ---
Pt. SP02 72% with low tidal volumes. Bolused with Fentanyl and Versed, bolused with 100% 02.
[2020-08-01] MEDS: NORepinephrine 8mg/ 250ml NS 250 ML IV PRN (11:35)
--- NOTE | 2020-08-01 11:39 | NUR ---
Levo. started for low BP due to max sedation as pt. was "bucking the vent" and not ventilating.
--- NOTE | 2020-08-01 14:20 | NUR ---
Pt. SP02 has been decreasing along with her BP since the Nimbex was stopped at 1050. RN just notified Dr. Batres of SP02 in the low 80s on 100% FI02 and that Levophed is back on for low BP due to the increase in sedation since the Nimbex is off. He stated "how can that be? She was fine this morning." He stated "thanks for letting me know." commission sales associate aware.
--- NOTE | 2020-08-01 15:22 | NUR ---
Turned pt. and her SP02 dropped to 60s. Bagged pt. for a few minutes. CXR and ABG ordered per Dr. Batres. glass fitter aware. Dr. Batres said to start Nimbex again.
--- NOTE | 2020-08-01 15:47 | NUR ---
RT here to obtain ABG. Sp02 91% on 100% FI02.
[2020-08-01 16:06] LABS: ABG BASE EXCESS -6.3 mmol/L (-2.0-2.0); ABG OXYGEN SATURATION 98.7 % (94-97); ABG PO2 (T) 148.5 mmHg (75.0-100.0); ALLEN'S TEST POSITIVE; FMetHb 0.2 % (0.0-1.5); FO2Hb 98.5 % (94-97); PEEP 5 cm H2O; RESPIRATORY RATE 20 b/min; TIDAL VOLUME 400 mL; TOTAL HEMOGLOBIN 12.9 G/dl (12.0-16.0)
--- NOTE | 2020-08-01 16:07 | NUR ---
ABG results back. FI02 turned down to 80% for P02 of 148.5. Sp02 99% after repositioning pt's head.
[2020-08-01] MEDS: normal saline 1000ml 1,000 ML IV SCH (16:52)
--- NOTE | 2020-08-01 18:13 | NUR ---
Problems reprioritized. Patient report given, questions answered & plan of care reviewed with Alejandra SIFUENTES.
--- NOTE | 2020-08-01 18:15 | NUR ---
Patient in room ICU 2045. I have received report from Bridget SIFUENTES and had the opportunity to ask questions and assume patient care.
[2020-08-02] VITALS (24 sets, daily range): BP systolic 87–113; BP diastolic 46–77
[2020-08-02] MEDS: midazolam 100mg in NS 100ml 100 ML IV PRN ×3 (02:57→15:43)
[2020-08-02] MEDS: FENTANYL-0.9 % NACL/PF 100 ML IV PRN ×3 (02:58→17:18)
[2020-08-02] MEDS: mineral oil/petrolatum ophthal oint EACHEYE SCH ×4 (03:03→19:04)
[2020-08-02 03:14] LABS: BASOPHILS % (AUTO) 0.4 % (0-1); EOSINOPHILS # (AUTO) 0.1 X10'3 (0-0.9); EOSINOPHILS % (AUTO) 1.6 % (0-6); HEMOGLOBIN 10.3 g/dl (12.0-16.0); LYMPHOCYTES # (AUTO) 0.5 X10'3 (1.1-4.8); LYMPHOCYTES % (AUTO) 12.3 % (21-51); MEAN CORPUSCULAR HEMOGLOBIN 32.3 PG (27.0-31.0); MEAN CORPUSCULAR HGB CONC 33.4 g/dL (33.0-36.5); MEAN CORPUSCULAR VOLUME 96.9 FL (78-98); MEAN PLATELET VOLUME 9.5 FL (7.4-10.4); MONOCYTES # (AUTO) 0.5 X10'3 (0-0.9); MONOCYTES % (AUTO) 11.3 % (2-12); NEUTROPHILS # (AUTO) 3.1 X10'3 (1.8-7.7); NEUTROPHILS % (AUTO) 74.4 % (42-75); PLATELET COUNT 132 X10'3 (140-440); RED CELL DISTRIBUTION WIDTH 14.6 % (11.5-14.5); WHITE BLOOD COUNT 4.2 X10'3 (4.5-11.0)
[2020-08-02 03:23] LABS: ALANINE AMINOTRANSFERASE 86 U/L (12-78); ALBUMIN 1.9 G/DL (3.4-5.0); ALBUMIN/GLOBULIN RATIO 0.6 (1.1-1.5); ALKALINE PHOSPHATASE 64 IU/L (46-116); ANION GAP 11 (8-16); ASPARTATE AMINO TRANSFERASE 39 U/L (10-37); BLOOD UREA NITROGEN 12 MG/DL (7-18); BUN/CREATININE RATIO 17.1 (6.6-38.0); CALCIUM 8.1 MG/DL (8.5-10.1); CHLORIDE 103 MMOL/L (99-107); GLUCOSE 115 MG/DL (70-104); MAGNESIUM 1.7 MG/DL (1.5-2.4); PHOSPHORUS 3.4 MG/DL (2.3-4.5); POTASSIUM 3.9 MMOL/L (3.5-5.1); SODIUM 135 MMOL/L (135-145); TOTAL CARBON DIOXIDE 20.9 MMOL/L (24-32); TOTAL PROTEIN 5.2 G/DL (6.4-8.2); eGFR 84 ML/MIN
[2020-08-02] MEDS: ipratropium/albuterol 3ml nebule NEB SCH ×6 (04:10→23:18)
[2020-08-02 04:26] LABS: ABG BASE EXCESS -4.6 mmol/L (-2.0-2.0); ABG OXYGEN SATURATION 92.6 % (94-97); ABG PCO2 (T) 40.6 mmHg (32.0-45.0); ABG PO2 (T) 70.9 mmHg (75.0-100.0); ALLEN'S TEST POSITIVE; FCOHb 0.2 % (0.0-3.9); FMetHb 0.1 % (0.0-1.5); FO2Hb 92.3 % (94-97); PATIENT TEMPERATURE 37.1; PEEP 5 cm H2O; RESPIRATORY RATE 20 b/min; TIDAL VOLUME 400 mL; TOTAL HEMOGLOBIN 11.9 G/dl (12.0-16.0)
--- NOTE | 2020-08-02 06:10 | NUR ---
Problems reprioritized. Patient report given, questions answered & plan of care reviewed with Bridget SIFUENTES.
[2020-08-02] MEDS: normal saline 1000ml 1,000 ML IV SCH ×2 (06:15→06:27)
--- NOTE | 2020-08-02 06:20 | NUR ---
Patient in room ICU 2045. I have received report from Alejandra SIFUENTES and had the opportunity to ask questions and assume patient care. Addendum: 08/02/20 at 0621 by Bridget Tom RN Amended: Links added.
[2020-08-02] MEDS: docusate sodium 100mg/10ml UD cup PO SCH (07:22)
[2020-08-02] MEDS: famotidine/PF 10 mg/ml inj IV SCH ×2 (07:22→19:03)
[2020-08-02] MEDS: lactobacillus rhamnosus 10,000 MMU CELLS/CAPSULE PO SCH (07:22)
[2020-08-02] MEDS: piperacillin/tazo 3.375gm/50ml 50 ML IV SCH ×3 (07:23→23:50)
[2020-08-02] MEDS: heparin, porcine 5000 units/ml vial SQ SCH ×2 (07:23→19:04)
[2020-08-02] MEDS: insulin regular, human U-100 3ml vial - multi-dose SQ SCH ×3 (07:29→17:18)
[2020-08-02] MEDS: CISatracurium besylate inj. 100 MG in normal saline 100ml IV soln 90 ML IV PRN ×2 (08:27→23:50)
--- NOTE | 2020-08-02 08:46 | NUR ---
BG this am was 67. Treated with 1/2 amp D50. BG came up to 99. Pt. not tolerating tube feedings. Residual was 320cc at 0800. Nimbex decreased to 1mcg with BIS in the 30-40s.
[2020-08-02] MEDS: furosemide 40mg/4ml inj IV SCH ×2 (08:57→19:03)
--- NOTE | 2020-08-02 09:28 | NUR ---
Dr. Batres in to see patient. Stated her CXR looks a little "wet" and the plan is to diurese patient and try to dc Nimbex and wake pt. up eventually.
[2020-08-02] MEDS ORDERED: potassium Cl 20 mEq SR tablet OGT PRN ×2 (10:45)
--- NOTE | 2020-08-02 10:46 | NUR ---
Reassessment: Pt TF at goal w/ GRV's consistently 300's though also no BM yet this admit 4 days. Relistor started yesterday and pt receiving routine colace; constipation likely to impact GRV's. Glu 67 this AM; previously receiving insulin drip now off per EMR. No hx DM. Probiotic held for WBC 4.2 today per RN. Attempting to wean nimbex to further determine mental status per MD. +12g wt this admit likely r/t 12L positive fluid balance. Will continue to monitor for EN tolerance and additional protein needs this admit. Recommendations: 1) Continuous OGTF using Vital High Protein at 70mL/hr goal; to provide 1680ml volume, 1411ml free water, 1680 kcals, and 147g protein. 2) additional water flush 200ml Q4H 3) prealbumin q Saturday/; daily weights 4) routine bowel care; opioid antagonist per remote sensing advisor Addendum: 08/02/20 at [address] Amended: Links added.
--- NOTE | 2020-08-02 13:33 | NUR ---
Levophed started at 1300 for decreased BP.
[2020-08-02] MEDS: NORepinephrine 8mg/ 250ml NS 250 ML IV PRN (15:49)
[2020-08-02] MEDS: Insulin Reg/NS 100units/100mL 100 ML IV SCH (16:25)
--- NOTE | 2020-08-02 18:03 | NUR ---
Problems reprioritized. Patient report given, questions answered & plan of care reviewed with Marion SIFUENTES.
--- NOTE | 2020-08-02 18:15 | NUR ---
Patient in room ICU 2045. I have received report from Bridget SIFUENTES and had the opportunity to ask questions and assume patient care.
[2020-08-02] MEDS: docusate sodium 100mg/10ml UD cup OGT SCH (19:04)
[2020-08-03] VITALS (24 sets, daily range): BP systolic 88–121; BP diastolic 40–65
[2020-08-03] MEDS: FENTANYL-0.9 % NACL/PF 100 ML IV PRN ×8 (00:43→23:43)
[2020-08-03 02:54] LABS: BASOPHILS % (AUTO) 0.4 % (0-1); EOSINOPHILS # (AUTO) 0.1 X10'3 (0-0.9); EOSINOPHILS % (AUTO) 1.8 % (0-6); HEMATOCRIT 31.1 % (35.0-45.0); HEMOGLOBIN 10.7 g/dl (12.0-16.0); LYMPHOCYTES # (AUTO) 0.4 X10'3 (1.1-4.8); LYMPHOCYTES % (AUTO) 8.6 % (21-51); MEAN CORPUSCULAR HEMOGLOBIN 33.3 PG (27.0-31.0); MEAN CORPUSCULAR HGB CONC 34.4 g/dL (33.0-36.5); MEAN PLATELET VOLUME 9.2 FL (7.4-10.4); MONOCYTES # (AUTO) 1.2 X10'3 (0-0.9); MONOCYTES % (AUTO) 24.9 % (2-12); NEUTROPHILS % (AUTO) 64.3 % (42-75); PLATELET COUNT 155 X10'3 (140-440); RED BLOOD COUNT 3.21 X10'6 (4.20-5.60); RED CELL DISTRIBUTION WIDTH 14.7 % (11.5-14.5); WHITE BLOOD COUNT 4.7 X10'3 (4.5-11.0)
[2020-08-03] MEDS: mineral oil/petrolatum ophthal oint EACHEYE SCH ×4 (02:54→19:39)
[2020-08-03] MEDS: midazolam 100mg in NS 100ml 100 ML IV PRN ×5 (02:55→22:50)
[2020-08-03 02:57] LABS: ALANINE AMINOTRANSFERASE 67 U/L (12-78); ALBUMIN 1.8 G/DL (3.4-5.0); ALBUMIN/GLOBULIN RATIO 0.4 (1.1-1.5); ALKALINE PHOSPHATASE 68 IU/L (46-116); ANION GAP 10 (8-16); ASPARTATE AMINO TRANSFERASE 26 U/L (10-37); BILIRUBIN,TOTAL 0.7 MG/DL (0.1-1.0); BLOOD UREA NITROGEN 12 MG/DL (7-18); BUN/CREATININE RATIO 13.8 (6.6-38.0); CALCIUM 8.1 MG/DL (8.5-10.1); CHLORIDE 97 MMOL/L (99-107); CREATININE 0.87 MG/DL (0.40-0.90); GLUCOSE 132 MG/DL (70-104); MAGNESIUM 1.4 MG/DL (1.5-2.4); PHOSPHORUS 4.1 MG/DL (2.3-4.5); POTASSIUM 3.5 MMOL/L (3.5-5.1); SODIUM 135 MMOL/L (135-145); TOTAL CARBON DIOXIDE 28.2 MMOL/L (24-32); eGFR 65 ML/MIN
[2020-08-03] MEDS: ipratropium/albuterol 3ml nebule NEB SCH ×6 (02:59→23:13)
[2020-08-03] MEDS ORDERED: magnesium 4gm in 100ml NS 100 ML IV PRN (04:10)
[2020-08-03] MEDS ORDERED: magnesium Cl slow-release 64mg tablet PO PRN (04:10)
[2020-08-03] MEDS ORDERED: magnesium 2GM in 50ml NS 50 ML IV PRN (04:10)
--- NOTE | 2020-08-03 06:30 | NUR ---
REPORT FROM CANELO SIFUENTES
--- NOTE | 2020-08-03 06:43 | NUR ---
Problems reprioritized. Patient report given, questions answered & plan of care reviewed with Haylee SIFUENTES.
[2020-08-03] MEDS: heparin, porcine 5000 units/ml vial SQ SCH ×2 (07:27→19:40)
[2020-08-03] MEDS: famotidine/PF 10 mg/ml inj IV SCH ×2 (07:31→19:39)
[2020-08-03] MEDS: furosemide 40mg/4ml inj IV SCH ×2 (07:36→19:39)
[2020-08-03] MEDS: piperacillin/tazo 3.375gm/50ml 50 ML IV SCH ×2 (07:39→15:27)
[2020-08-03] MEDS: docusate sodium 100mg/10ml UD cup OGT SCH ×2 (07:39→19:39)
[2020-08-03] MEDS: methylnaltrexone br 12mg/0.6ml inj***SubQ only SQ SCH (07:40)
[2020-08-03] MEDS: insulin regular, human U-100 3ml vial - multi-dose SQ SCH ×3 (09:00→17:03)
[2020-08-03] MEDS: NORepinephrine 8mg/ 250ml NS 250 ML IV PRN (13:17)
[2020-08-03] MEDS: propofol 1000mg/100ml bottle 100 ML IV SCH (15:26)
--- NOTE | 2020-08-03 18:25 | NUR ---
Patient in room ICU 2045. I have received report from Haylee SIFUENTES and had the opportunity to ask questions and assume patient care.
[2020-08-03] MEDS: acetaminophen 325mg tablet OGT PRN (19:40)
[2020-08-04] VITALS (24 sets, daily range): BP systolic 98–126; BP diastolic 46–64
[2020-08-04] MEDS: piperacillin/tazo 3.375gm/50ml 50 ML IV SCH ×4 (00:11→23:41)
[2020-08-04] MEDS: Insulin Reg/NS 100units/100mL 100 ML IV SCH (01:45)
--- NOTE | 2020-08-04 01:57 | NUR ---
Contacted donor network about patient in case neurologic function does not return and family decides on comfort care.
[2020-08-04] MEDS: ipratropium/albuterol 3ml nebule NEB SCH ×6 (03:09→22:47)
[2020-08-04 03:20] LABS: ABG BASE EXCESS 3.6 mmol/L (-2.0-2.0); ABG HCO3 28.4 mmol/L (22.0-26.0); ABG OXYGEN SATURATION 95.6 % (94-97); ABG PO2 (T) 79.8 mmHg (75.0-100.0); ALLEN'S TEST POSITIVE; FMetHb 0.1 % (0.0-1.5); FO2Hb 95.5 % (94-97); PATIENT TEMPERATURE 36.5; PEEP 5 cm H2O; RESPIRATORY RATE 20 b/min; TIDAL VOLUME 400 mL; TOTAL HEMOGLOBIN 11.7 G/dl (12.0-16.0)
[2020-08-04] MEDS: mineral oil/petrolatum ophthal oint EACHEYE SCH ×4 (03:42→19:59)
[2020-08-04 03:49] LABS: BASOPHILS % (AUTO) 0.7 % (0-1); RED BLOOD COUNT 3.16 X10'6 (4.20-5.60); RED CELL DISTRIBUTION WIDTH 14.2 % (11.5-14.5)
[2020-08-04 03:51] LABS: EOSINOPHILS # (AUTO) 0.2 X10'3 (0-0.9); EOSINOPHILS % (AUTO) 2.4 % (0-6); HEMATOCRIT 30.5 % (35.0-45.0); HEMOGLOBIN 10.7 g/dl (12.0-16.0); LYMPHOCYTES # (AUTO) 0.7 X10'3 (1.1-4.8); LYMPHOCYTES % (AUTO) 10.4 % (21-51); MEAN CORPUSCULAR HEMOGLOBIN 33.7 PG (27.0-31.0); MEAN CORPUSCULAR VOLUME 96.3 FL (78-98); MONOCYTES # (AUTO) 1.7 X10'3 (0-0.9); MONOCYTES % (AUTO) 25.9 % (2-12); NEUTROPHILS # (AUTO) 3.9 X10'3 (1.8-7.7); NEUTROPHILS % (AUTO) 60.6 % (42-75); PLATELET COUNT 210 X10'3 (140-440); WHITE BLOOD COUNT 6.5 X10'3 (4.5-11.0)
[2020-08-04 04:02] LABS: ALANINE AMINOTRANSFERASE 54 U/L (12-78); ALBUMIN 1.9 G/DL (3.4-5.0); ALBUMIN/GLOBULIN RATIO 0.5 (1.1-1.5); ALKALINE PHOSPHATASE 73 IU/L (46-116); ANION GAP 7 (8-16); ASPARTATE AMINO TRANSFERASE 24 U/L (10-37); BILIRUBIN,TOTAL 0.8 MG/DL (0.1-1.0); BLOOD UREA NITROGEN 13 MG/DL (7-18); BUN/CREATININE RATIO 15.7 (6.6-38.0); CALCIUM 9.3 MG/DL (8.5-10.1); CHLORIDE 104 MMOL/L (99-107); CREATININE 0.83 MG/DL (0.40-0.90); GLUCOSE 131 MG/DL (70-104); MAGNESIUM 2.1 MG/DL (1.5-2.4); PHOSPHORUS 3.7 MG/DL (2.3-4.5); POTASSIUM 3.3 MMOL/L (3.5-5.1); PREALBUMIN 9.4 MG/DL (19-36); SODIUM 142 MMOL/L (135-145); TOTAL CARBON DIOXIDE 31.2 MMOL/L (24-32); TOTAL PROTEIN 6.1 G/DL (6.4-8.2); TRIGLYCERIDES 205 MG/DL (20-135); eGFR 69 ML/MIN
[2020-08-04] MEDS: midazolam 100mg in NS 100ml 100 ML IV PRN ×3 (04:27→14:43)
[2020-08-04] MEDS: FENTANYL-0.9 % NACL/PF 100 ML IV PRN ×7 (04:28→21:05)
--- NOTE | 2020-08-04 06:30 | NUR ---
Report received from odilia RN
[2020-08-04 06:31] LABS: TOTAL CELLS COUNTED 100
[2020-08-04 06:32] LABS: PLATELET ESTIMATE NORMAL; POLYCHROMASIA 1+; TOXIC GRANULATION 1+
--- NOTE | 2020-08-04 07:00 | NUR ---
Problems reprioritized. Patient report given, questions answered & plan of care reviewed with Astrid SIFUENTES.
[2020-08-04] MEDS: docusate sodium 100mg/10ml UD cup OGT SCH ×2 (08:43→19:58)
[2020-08-04] MEDS: famotidine/PF 10 mg/ml inj IV SCH ×2 (08:43→19:59)
[2020-08-04] MEDS: furosemide 40mg/4ml inj IV SCH ×2 (08:43→19:58)
[2020-08-04] MEDS: heparin, porcine 5000 units/ml vial SQ SCH ×2 (08:44→19:59)
[2020-08-04] MEDS: propofol 1000mg/100ml bottle 100 ML IV SCH ×3 (08:47→20:52)
[2020-08-04] MEDS: insulin regular, human U-100 3ml vial - multi-dose SQ SCH ×3 (09:00→16:21)
[2020-08-04] MEDS: potassium Cl 20mEq/100mL bag 100 ML IV PRN ×3 (10:06→23:38)
--- NOTE | 2020-08-04 10:36 | NUR ---
Noted pt TF held for GRV 525 yesterday afternoon; now restarted at 50ml/hr w/ GRV WNL per EMR. LUZ MARIA d/w RN regarding additional bowel care if MD agreeable given no BM yet 6 days this admit and already receiving routine colace/relistor. Addendum: 08/04/20 at [address] Amended: Links added.
--- NOTE | 2020-08-04 18:27 | NUR ---
Report given to MARIA French.
[2020-08-05] VITALS (24 sets, daily range): BP systolic 87–144; BP diastolic 44–74
[2020-08-05] MEDS: FENTANYL-0.9 % NACL/PF 100 ML IV PRN ×6 (00:31→22:52)
[2020-08-05] MEDS: potassium Cl 20mEq/100mL bag 100 ML IV PRN (01:05)
[2020-08-05] MEDS: mineral oil/petrolatum ophthal oint EACHEYE SCH ×4 (02:01→19:33)
[2020-08-05] MEDS: ipratropium/albuterol 3ml nebule NEB SCH ×6 (02:58→23:08)
[2020-08-05 03:31] LABS: ABG BASE EXCESS 5.3 mmol/L (-2.0-2.0); ABG HCO3 28.9 mmol/L (22.0-26.0); ABG OXYGEN SATURATION 94.9 % (94-97); ABG PCO2 (T) 39.7 mmHg (32.0-45.0); ALLEN'S TEST POSITIVE; FCOHb 0.3 % (0.0-3.9); FMetHb 0.1 % (0.0-1.5); FO2Hb 94.5 % (94-97); PATIENT TEMPERATURE 37.7; PEEP 5 cm H2O; RESPIRATORY RATE 20 b/min; TIDAL VOLUME 400 mL; TOTAL HEMOGLOBIN 10.9 G/dl (12.0-16.0)
[2020-08-05 03:35] LABS: BASOPHILS % (AUTO) 0.5 % (0-1); EOSINOPHILS # (AUTO) 0.1 X10'3 (0-0.9); EOSINOPHILS % (AUTO) 1.8 % (0-6); HEMATOCRIT 29.8 % (35.0-45.0); HEMOGLOBIN 10.1 g/dl (12.0-16.0); LYMPHOCYTES # (AUTO) 0.8 X10'3 (1.1-4.8); LYMPHOCYTES % (AUTO) 11.9 % (21-51); MEAN CORPUSCULAR HEMOGLOBIN 32.4 PG (27.0-31.0); MEAN CORPUSCULAR HGB CONC 33.9 g/dL (33.0-36.5); MEAN CORPUSCULAR VOLUME 95.6 FL (78-98); MEAN PLATELET VOLUME 8.7 FL (7.4-10.4); MONOCYTES # (AUTO) 1.1 X10'3 (0-0.9); MONOCYTES % (AUTO) 17.7 % (2-12); NEUTROPHILS # (AUTO) 4.4 X10'3 (1.8-7.7); NEUTROPHILS % (AUTO) 68.1 % (42-75); PLATELET COUNT 205 X10'3 (140-440); RED BLOOD COUNT 3.12 X10'6 (4.20-5.60); RED CELL DISTRIBUTION WIDTH 14.2 % (11.5-14.5); WHITE BLOOD COUNT 6.4 X10'3 (4.5-11.0)
[2020-08-05 03:48] LABS: ALANINE AMINOTRANSFERASE 55 U/L (12-78); ALBUMIN 1.8 G/DL (3.4-5.0); ALBUMIN/GLOBULIN RATIO 0.4 (1.1-1.5); ALKALINE PHOSPHATASE 101 IU/L (46-116); ANION GAP 3 (8-16); ASPARTATE AMINO TRANSFERASE 42 U/L (10-37); BILIRUBIN,TOTAL 0.9 MG/DL (0.1-1.0); BLOOD UREA NITROGEN 15 MG/DL (7-18); BUN/CREATININE RATIO 17.6 (6.6-38.0); CALCIUM 9.1 MG/DL (8.5-10.1); CHLORIDE 103 MMOL/L (99-107); CREATININE 0.85 MG/DL (0.40-0.90); GLUCOSE 137 MG/DL (70-104); PHOSPHORUS 3.5 MG/DL (2.3-4.5); POTASSIUM 3.6 MMOL/L (3.5-5.1); SODIUM 138 MMOL/L (135-145); TOTAL CARBON DIOXIDE 31.7 MMOL/L (24-32); TOTAL PROTEIN 6.1 G/DL (6.4-8.2); eGFR 67 ML/MIN
[2020-08-05 04:00] LABS: PLATELET ESTIMATE NORMAL; TOTAL CELLS COUNTED 100
[2020-08-05] MEDS: NORepinephrine 8mg/ 250ml NS 250 ML IV PRN ×2 (04:00→22:51)
[2020-08-05] MEDS: propofol 1000mg/100ml bottle 100 ML IV SCH ×4 (04:58→19:31)
--- NOTE | 2020-08-05 06:30 | NUR ---
Patient in room ICU 2045. I have received report from Manolo and had the opportunity to ask questions and assume patient care.
[2020-08-05] MEDS: heparin, porcine 5000 units/ml vial SQ SCH ×2 (07:39→19:29)
[2020-08-05] MEDS: furosemide 40mg/4ml inj IV SCH ×2 (07:39→19:29)
[2020-08-05] MEDS: famotidine/PF 10 mg/ml inj IV SCH ×2 (07:39→19:29)
[2020-08-05] MEDS: docusate sodium 100mg/10ml UD cup OGT SCH ×2 (07:39→19:29)
[2020-08-05] MEDS: methylnaltrexone br 12mg/0.6ml inj***SubQ only SQ SCH (07:40)
[2020-08-05] MEDS: insulin regular, human U-100 3ml vial - multi-dose SQ SCH ×3 (09:00→18:00)
[2020-08-05] MEDS: piperacillin/tazo 3.375gm/50ml 50 ML IV SCH ×3 (09:20→23:53)
--- NOTE | 2020-08-05 10:37 | NUR ---
Reassessment: Patient remains intubated. Tube feed has been advanced to goal of 70 mL/hr and GRV 120-220 mL over the last 24 hours which is WNL. Still no BM since admit, receiving routine Colace and Relistor. D/w RN who reports pt now with active bowel sounds and passing gas. Hopeful for a BM soon. Will continue to follow closely. Recommendations: 1) Continuous OGTF using Vital High Protein at 70mL/hr goal; to provide 1680ml volume, 1411ml water, 1680 kcals, and 147g protein. 2) additional water flush 200ml Q4H 3) prealbumin q Saturday/; daily weights 4) routine bowel care; opioid antagonist per public relations director Addendum: 08/05/20 at [address] Amended: Links added.
[2020-08-05] MEDS: Insulin Reg/NS 100units/100mL 100 ML IV SCH (11:05)
[2020-08-05 12:16] LABS: ABG BASE EXCESS 5.7 mmol/L (-2.0-2.0); ABG HCO3 28.4 mmol/L (22.0-26.0); ABG OXYGEN SATURATION 99.5 % (94-97); ABG PCO2 (T) 35.9 mmHg (32.0-45.0); ABG PO2 (T) 256.5 mmHg (75.0-100.0); ALLEN'S TEST POSITIVE; FCOHb 0.3 % (0.0-3.9); FMetHb 0.3 % (0.0-1.5); FO2Hb 98.9 % (94-97); PEEP 5 cm H2O; RESPIRATORY RATE 20 b/min; TIDAL VOLUME 400 mL; TOTAL HEMOGLOBIN 11.4 G/dl (12.0-16.0)
[2020-08-05] MEDS: acetaminophen 325mg tablet OGT PRN (12:35)
--- NOTE | 2020-08-05 22:05 | NUR ---
RN Note -Central line leaking. New peripheral IV started for sedation. Levophed moved to brown port. Able to go down on sedation and Levophed.
[2020-08-06] VITALS (24 sets, daily range): BP systolic 96–131; BP diastolic 44–66
[2020-08-06] MEDS: mineral oil/petrolatum ophthal oint EACHEYE SCH ×4 (02:00→20:47)
--- NOTE | 2020-08-06 02:30 | NUR ---
RN Note -PT's called. Would like update from doctor.
[2020-08-06] MEDS: ipratropium/albuterol 3ml nebule NEB SCH ×6 (03:12→22:38)
[2020-08-06] MEDS: acetaminophen 325mg tablet OGT PRN ×2 (03:21→15:09)
[2020-08-06] MEDS: propofol 1000mg/100ml bottle 100 ML IV SCH ×3 (03:21→22:43)
[2020-08-06 03:51] LABS: ABG BASE EXCESS 5.7 mmol/L (-2.0-2.0); ABG HCO3 30.3 mmol/L (22.0-26.0); ABG OXYGEN SATURATION 92.8 % (94-97); ABG PCO2 (T) 46.1 mmHg (32.0-45.0); ALLEN'S TEST POSITIVE; FCOHb 0.1 % (0.0-3.9); FMetHb 0.1 % (0.0-1.5); FO2Hb 92.6 % (94-97); PEEP 5 cm H2O; RESPIRATORY RATE 20 b/min; TIDAL VOLUME 400 mL; TOTAL HEMOGLOBIN 11.1 G/dl (12.0-16.0)
[2020-08-06 05:46] LABS: BASOPHILS % (AUTO) 0.4 % (0-1); EOSINOPHILS # (AUTO) 0.2 X10'3 (0-0.9); EOSINOPHILS % (AUTO) 1.9 % (0-6); HEMATOCRIT 28.9 % (35.0-45.0); HEMOGLOBIN 9.9 g/dl (12.0-16.0); LYMPHOCYTES # (AUTO) 0.6 X10'3 (1.1-4.8); LYMPHOCYTES % (AUTO) 6.9 % (21-51); MEAN CORPUSCULAR HEMOGLOBIN 32.9 PG (27.0-31.0); MEAN CORPUSCULAR HGB CONC 34.3 g/dL (33.0-36.5); MEAN CORPUSCULAR VOLUME 95.9 FL (78-98); MEAN PLATELET VOLUME 8.9 FL (7.4-10.4); MONOCYTES # (AUTO) 1.3 X10'3 (0-0.9); MONOCYTES % (AUTO) 13.6 % (2-12); NEUTROPHILS # (AUTO) 7.1 X10'3 (1.8-7.7); NEUTROPHILS % (AUTO) 77.2 % (42-75); PLATELET COUNT 243 X10'3 (140-440); RED BLOOD COUNT 3.02 X10'6 (4.20-5.60); RED CELL DISTRIBUTION WIDTH 14.4 % (11.5-14.5); WHITE BLOOD COUNT 9.2 X10'3 (4.5-11.0)
[2020-08-06 05:52] LABS: ALANINE AMINOTRANSFERASE 63 U/L (12-78); ALBUMIN 1.7 G/DL (3.4-5.0); ALBUMIN/GLOBULIN RATIO 0.4 (1.1-1.5); ALKALINE PHOSPHATASE 103 IU/L (46-116); ANION GAP 10 (8-16); ASPARTATE AMINO TRANSFERASE 43 U/L (10-37); BILIRUBIN,TOTAL 0.8 MG/DL (0.1-1.0); BLOOD UREA NITROGEN 17 MG/DL (7-18); BUN/CREATININE RATIO 21.5 (6.6-38.0); CALCIUM 9.3 MG/DL (8.5-10.1); CHLORIDE 100 MMOL/L (99-107); CREATININE 0.79 MG/DL (0.40-0.90); GLUCOSE 148 MG/DL (70-104); MAGNESIUM 2.1 MG/DL (1.5-2.4); PHOSPHORUS 4.4 MG/DL (2.3-4.5); SODIUM 140 MMOL/L (135-145); TOTAL CARBON DIOXIDE 30.4 MMOL/L (24-32); TOTAL PROTEIN 6.4 G/DL (6.4-8.2); eGFR 73 ML/MIN
[2020-08-06 05:54] LABS: POTASSIUM 2.8 MMOL/L (3.5-5.1)
--- NOTE | 2020-08-06 06:30 | NUR ---
Patient in room ICU 2045. I have received report from [facility] and had the opportunity to ask questions and assume patient care.
[2020-08-06] MEDS: heparin, porcine 5000 units/ml vial SQ SCH ×2 (08:23→20:47)
[2020-08-06] MEDS: docusate sodium 100mg/10ml UD cup OGT SCH ×2 (08:23→20:47)
[2020-08-06] MEDS: famotidine/PF 10 mg/ml inj IV SCH ×2 (08:23→20:47)
[2020-08-06] MEDS: furosemide 40mg/4ml inj IV SCH ×2 (08:23→20:47)
[2020-08-06] MEDS: piperacillin/tazo 3.375gm/50ml 50 ML IV SCH ×2 (08:23→15:05)
[2020-08-06] MEDS: insulin regular, human U-100 3ml vial - multi-dose SQ SCH ×3 (09:00→18:00)
[2020-08-06] MEDS: FENTANYL-0.9 % NACL/PF 100 ML IV PRN ×3 (09:39→17:55)
[2020-08-06] MEDS: potassium Cl 20mEq/100mL bag 100 ML IV PRN ×4 (10:31→16:09)
[2020-08-06] MEDS: Insulin Reg/NS 100units/100mL 100 ML IV SCH (20:25)
[2020-08-07] VITALS (24 sets, daily range): BP systolic 90–149; BP diastolic 41–71
[2020-08-07] MEDS: piperacillin/tazo 3.375gm/50ml 50 ML IV SCH ×3 (00:12→15:29)
[2020-08-07] MEDS: mineral oil/petrolatum ophthal oint EACHEYE SCH ×4 (02:00→20:48)
[2020-08-07] MEDS: ipratropium/albuterol 3ml nebule NEB SCH ×6 (02:58→22:59)
[2020-08-07 03:20] LABS: ABG BASE EXCESS 8.1 mmol/L (-2.0-2.0); ABG HCO3 33.6 mmol/L (22.0-26.0); ABG PCO2 (T) 52.8 mmHg (32.0-45.0); ABG PO2 (T) 85.5 mmHg (75.0-100.0); ALLEN'S TEST POSITIVE; FCOHb 0.3 % (0.0-3.9); FMetHb 0.2 % (0.0-1.5); FO2Hb 95.5 % (94-97); PATIENT TEMPERATURE 37.3; PEEP 5 cm H2O; RESPIRATORY RATE 20 b/min; TIDAL VOLUME 400 mL; TOTAL HEMOGLOBIN 10.7 G/dl (12.0-16.0)
--- NOTE | 2020-08-07 06:30 | NUR ---
Patient in room ICU 2045. I have received report from [facility] and had the opportunity to ask questions and assume patient care.
[2020-08-07] MEDS: propofol 1000mg/100ml bottle 100 ML IV SCH ×5 (06:46→20:47)
[2020-08-07] MEDS: heparin, porcine 5000 units/ml vial SQ SCH ×2 (07:59→20:49)
[2020-08-07] MEDS: famotidine/PF 10 mg/ml inj IV SCH ×2 (08:00→20:48)
[2020-08-07] MEDS: docusate sodium 100mg/10ml UD cup OGT SCH ×2 (08:00→20:49)
[2020-08-07] MEDS: methylnaltrexone br 12mg/0.6ml inj***SubQ only SQ SCH (08:00)
[2020-08-07] MEDS: furosemide 40mg/4ml inj IV SCH ×2 (08:00→20:48)
[2020-08-07 08:26] LABS: BASOPHILS % (AUTO) 0.2 % (0-1); EOSINOPHILS # (AUTO) 0.2 X10'3 (0-0.9); EOSINOPHILS % (AUTO) 1.8 % (0-6); HEMATOCRIT 29.7 % (35.0-45.0); LYMPHOCYTES # (AUTO) 0.9 X10'3 (1.1-4.8); LYMPHOCYTES % (AUTO) 8.2 % (21-51); MEAN CORPUSCULAR HGB CONC 33.6 g/dL (33.0-36.5); MEAN CORPUSCULAR VOLUME 95.3 FL (78-98); MEAN PLATELET VOLUME 8.6 FL (7.4-10.4); MONOCYTES % (AUTO) 8.8 % (2-12); NEUTROPHILS # (AUTO) 9.1 X10'3 (1.8-7.7); PLATELET COUNT 309 X10'3 (140-440); RED BLOOD COUNT 3.12 X10'6 (4.20-5.60); RED CELL DISTRIBUTION WIDTH 14.5 % (11.5-14.5); WHITE BLOOD COUNT 11.2 X10'3 (4.5-11.0)
[2020-08-07 08:32] LABS: ALANINE AMINOTRANSFERASE 68 U/L (12-78); ALBUMIN 1.8 G/DL (3.4-5.0); ALBUMIN/GLOBULIN RATIO 0.4 (1.1-1.5); ALKALINE PHOSPHATASE 105 IU/L (46-116); ANION GAP 3 (8-16); ASPARTATE AMINO TRANSFERASE 35 U/L (10-37); BILIRUBIN,TOTAL 0.7 MG/DL (0.1-1.0); BLOOD UREA NITROGEN 22 MG/DL (7-18); BUN/CREATININE RATIO 32.4 (6.6-38.0); CHLORIDE 99 MMOL/L (99-107); CREATININE 0.68 MG/DL (0.40-0.90); GLUCOSE 134 MG/DL (70-104); MAGNESIUM 2.1 MG/DL (1.5-2.4); PHOSPHORUS 4.1 MG/DL (2.3-4.5); POTASSIUM 3.6 MMOL/L (3.5-5.1); SODIUM 137 MMOL/L (135-145); TOTAL PROTEIN 6.7 G/DL (6.4-8.2); eGFR 87 ML/MIN
[2020-08-07 08:36] LABS: CALCIUM 9.4 MG/DL (8.5-10.1)
[2020-08-07] MEDS: insulin regular, human U-100 3ml vial - multi-dose SQ SCH ×3 (09:00→17:50)
[2020-08-07] MEDS: FENTANYL-0.9 % NACL/PF 100 ML IV PRN (16:48)
--- NOTE | 2020-08-07 19:00 | NUR ---
REVIEWED WITH SHREYAS DEE NP RE: BP/LEVOPHED, ALBUMIN LEVEL IS 1.7 AND H/H 7.6/23. NO NEW ORDERS REGARDING THESE . QUESTIONED WHETHER TO GIVE COLACE AND SENNA THEY HAVE BEEN HELD PREVIOUSLY. PER SHREYAS, NITIN - OK TO GIVE. PATIENT HAS HAS BOWEL MOVEMENTS THE PREVIOUS SHIFT ALSO PER REPORT. REMINDED NITIN PRITCHETT PATIENT IS ON NO ABX AT THIS TIME - REVIEWED LATEST MICRO RESULTS WITH HER. NO NEW ORDERS. FROM REPORT AT SHIFT CHANGE, MARIA LEGGETT REPORTED TO ME TO DC DOMI CATHETER HOWEVER THERE IS NO ORDER. DR. SOTO MENTIONED IN HIS PROGRESS NOTES THAT HE WOULD DC THIS CATHETER BUT AGAIN - THERE IS NO ORDER. CLARIFIED WITH NITIN PRITCHETT WHETHER THIS LINE IS TO BE DC'D. PER NITIN PRITCHETT WE WILL WAIT TO CLARIFY ON ROUNDS IN AM. SHE WILL ALSO CLARIFY ABX STATUS IN AM WELL. Addendum: 08/08/20 at 0111 by Juni Alan RN PLEASE DISREGARD THE ABOVE NOTE - IT WAS WRITTEN IN ERROR /WRONG PATIENT
--- NOTE | 2020-08-07 19:30 | NUR ---
UPON ASSESSMENT - PATIENTS ABDOMEN NOTED TO BE QUITE DISTENDED AND SLIGHTLY FIRM. PEG TUBE WAS CLAMPED FOR MEDS GIVEN PREVIOUS SHIFT. PEG SITE LEAKING MODERATE AMOUNT BROWN BILIOUS IN BED. NEW TUBING AND NEW CANISTER PLACED. OLD CANISTER HAD MARKING THAT SHOWED AT 350 ML. PRIOR TO TOSSING CANISTER - 100 MORE ML BROWN BILIOUS WAS IN CANISTER. NOTED THAT [employer] DID NOT TAKE CREDIT FOR THIS 100 ML SO I DID ON MY SHIFT PRIOR TO CHANGING TO A NEW CANISTER. # 22 PIV TO LEFT WRIST D/C'D. PUFFY AND DIFFICULT TO FLUSH. NEURO - NOTED LEFT PUPIL 1 MM AND RIGHT PUPIL 1.5 MM. BOTH REACTIVE TO LIGHT. PATIENT OPENS EYES TO NAME BUT DOES NOT MAKE EYE CONTACT. DOES NOT STICK TONGUE OUT ON COMMAND. DOES NOT TRACK. VERSED GTT 1.5 MG/HR, FENTANYL 75 UG/HR. PATIENT IS IN NO DISTRESS AND NO S/SX PAIN. COURSE BREATH SOUNDS B/L, SXN SM [place]/WHITE. VSS, AFEBRILE, U/O MARGINAL GABBY. RIGHT FEMORAL DOMI - CDI - DRESSING NOT DATED, LEFT FEMORAL A-LINE. DRESSING CDI, RIGHT SC QLC - CDI, Addendum: 08/08/20 at 0108 by Juni Alan RN AFTER DISCUSSING WITH SEPTEMBER ENVIRONMENTAL ADVISER REGARDING THE DISTENDED ABDOMEN AND LEAKING PEG SITE - I DID NOT GIVE THE PT SENNA OR COLACE. Addendum: 08/08/20 at 0112 by Juni Alan RN PLEASE DISREGARD THE ABOVE NOTE - IT WAS WRITTEN IN ERROR /WRONG PATIENT
--- NOTE | 2020-08-07 20:00 | NUR ---
PATIENT ASSESSED. NEUROLOGICALLY PATIENT DOES NOTHING TO PAINFUL STIMULI ACCEPT MOVE MOUTH A LITTLE. SHE DOES NOT WITHDRAW OR POSTURE TO CENTRAL STIMULUS. PATIENT DOES OVER BREATH THE VENT & AT TIMES TACHYPNIC IN THE 30 'S AND WITH COUGHING FITS THOUGH COUGH IS EXTREMELY WEAK. SEEMS TO SETTLE DOWN ON HER OWN WITHOUT INTERVENTION ACCEPT TO SUCTION. THERE IS NOTHING THAT PRECEDES THE EPISODE. COUGH IS EXTREMELY WEAK, NO GAG. NO CORNEAL REFLEXES NOTED. GERALD 2 MM - RIGHT PUPIL BRISKLY REACTIVE TO LIGHT, LEFT PUPIL VERY DELAYED AND SLUGGING EVEN THEN. LARGE AMOUNT OF CLEAR ORAL SECRETIONS. NO S/SX PAIN OR DISTRESS. TOLERATING VENT SETTINGS. VSS. RESIDUALS FOR TF = 275 ML. NO STOOL, NO FLATUS NOTED. ABDOMEN IS SOFT. U/O IS EXCELLENT, CLEAR YELLOW
--- NOTE | 2020-08-07 21:00 | NUR ---
FULL BED AND BATH. LOTION APPLIES ALL OVER BODY. WITH THE HELP OF 2 RN'S, (OPERATIONS INTELLIGENCE SUPERINTENDENT TO TURN, RESOURCE RN TO STABILIZE NECK WHILE PHILI COLLAR WAS REMOVED) I ASSESSED TOTAL NECK SKIN/BACK OF HEAD. PATIENT HAD A PACKED WOUND AT C-4 SITE ON POSTERIOR NECK - DRESSING WAS DATED 08/04. I REMOVED THE PACKING AND APPLIED NEW NS W->D WITH DSD COVERING. WOUND WAS PROBABLY 1/4 IN OR SO DEEP. I DID NOT HAVE A MEASURING DEVICE AT THE TIME. THIS WOUND WAS NOT REPORTED IN REPORT SO I WAS UNPREPARED WHILE REMOVING THE COLLAR. A SCAR TO FRONT RIGHT NECK NOTED BUT NOT OPEN. OCCIPITAL AREA WITH AREA OF SHAVED HAIR WITH A SMALL SCAR AT THE CENTER. IT WAS NOT OPEN. TOTAL NECK CLEANED FRONT AND BACK - COLLAR CLEANED AND REPLACED. DTI TO LEFT FLANK - OFFLY SHAPED - OPTIFOAM APPLIED. DIME SIZED SKIN TEAR TO LEFT LOWER BUTTOCK FOLD (INTO THE THIGH), OPTIFOAM APPLIED. OPTIFOAM ON SACRUM - REMOVED TO ASSESS - TINY OPEN AREA AT DISTAL TAILBONE. SMALL AREA MAY BE DTI TO RIGHT OF SACRUM. PATIENT IS TURNED LEFT SIDE OR RIGHT SIDE. NEVER ON COCCYX. I WILL REQUEST WOUND CARE TO ASSESS FOR PERHAPS A SPECIALTY BED - CURRENTLY ON AIR EQUALIZING MATTRESS. LOTION APPLIED TO ENTIRE BODY.. HEELS AND ARMS ON PILLOWS. PATIENT IS ALWAYS CHECKED FOR ANY PRESSURE ISSUES RELATED TO MONITOR WIRES/ALEX/SCD/VENT IV LINES ETC. EXTREMITIES ALWAYS MADE SURE TO BE POSITIONED PROPERLY ESPECIALLY RECHECKING AFTER TURNS PATIENT IS A NEW QUADRIPLEGIC AND UNABLE TO SENSE PRESSURE/POSITIONING ISSUES. Addendum: 08/08/20 at 0114 by Juni Alan RN PLEASE DISREGARD THE ABOVE NOTE - IT WAS WRITTEN IN ERROR /WRONG PATIENT
--- NOTE | 2020-08-07 23:00 | NUR ---
GLADYS FROM [employer] CALLED TO GET LATEST UPDATES ON THIS PATIENT (TRACEY HARO).
[2020-08-08] VITALS (22 sets, daily range): BP systolic 90–121; BP diastolic 43–60
[2020-08-08] MEDS: piperacillin/tazo 3.375gm/50ml 50 ML IV SCH ×3 (00:30→16:24)
[2020-08-08] MEDS: Insulin Reg/NS 100units/100mL 100 ML IV SCH (02:52)
[2020-08-08] MEDS: mineral oil/petrolatum ophthal oint EACHEYE SCH ×4 (02:52→19:38)
[2020-08-08] MEDS: ipratropium/albuterol 3ml nebule NEB SCH ×6 (03:05→23:13)
[2020-08-08 03:16] LABS: BASOPHILS # (AUTO) 0.1 X10'3 (0-0.2); BASOPHILS % (AUTO) 0.4 % (0-1); EOSINOPHILS # (AUTO) 0.2 X10'3 (0-0.9); EOSINOPHILS % (AUTO) 1.8 % (0-6); HEMATOCRIT 28.1 % (35.0-45.0); HEMOGLOBIN 9.5 g/dl (12.0-16.0); LYMPHOCYTES % (AUTO) 7.2 % (21-51); MEAN CORPUSCULAR VOLUME 94.2 FL (78-98); MEAN PLATELET VOLUME 8.2 FL (7.4-10.4); MONOCYTES % (AUTO) 7.4 % (2-12); NEUTROPHILS # (AUTO) 11.4 X10'3 (1.8-7.7); NEUTROPHILS % (AUTO) 83.2 % (42-75); PLATELET COUNT 369 X10'3 (140-440); RED BLOOD COUNT 2.98 X10'6 (4.20-5.60); RED CELL DISTRIBUTION WIDTH 14.4 % (11.5-14.5); WHITE BLOOD COUNT 13.7 X10'3 (4.5-11.0)
[2020-08-08 03:31] LABS: ALANINE AMINOTRANSFERASE 63 U/L (12-78); ALBUMIN 1.8 G/DL (3.4-5.0); ALBUMIN/GLOBULIN RATIO 0.4 (1.1-1.5); ALKALINE PHOSPHATASE 110 IU/L (46-116); ANION GAP 3 (8-16); ASPARTATE AMINO TRANSFERASE 39 U/L (10-37); BILIRUBIN,TOTAL 0.6 MG/DL (0.1-1.0); BLOOD UREA NITROGEN 24 MG/DL (7-18); CALCIUM 9.1 MG/DL (8.5-10.1); CHLORIDE 98 MMOL/L (99-107); GLUCOSE 145 MG/DL (70-104); POTASSIUM 3.1 MMOL/L (3.5-5.1); PREALBUMIN 13.2 MG/DL (19-36); SODIUM 138 MMOL/L (135-145); TOTAL CARBON DIOXIDE 36.7 MMOL/L (24-32); TOTAL PROTEIN 6.5 G/DL (6.4-8.2); eGFR 72 ML/MIN
[2020-08-08 03:50] LABS: ABG BASE EXCESS 8.1 mmol/L (-2.0-2.0); ABG HCO3 32.8 mmol/L (22.0-26.0); ABG OXYGEN SATURATION 95.2 % (94-97); ABG PCO2 (T) 48.8 mmHg (32.0-45.0); ABG PO2 (T) 79.4 mmHg (75.0-100.0); ALLEN'S TEST POSITIVE; FCOHb 0.3 % (0.0-3.9); FO2Hb 94.9 % (94-97); PEEP 5 cm H2O; RESPIRATORY RATE 20 b/min; TIDAL VOLUME 400 mL; TOTAL HEMOGLOBIN 10.4 G/dl (12.0-16.0)
[2020-08-08] MEDS: propofol 1000mg/100ml bottle 100 ML IV SCH ×5 (04:11→19:41)
[2020-08-08] MEDS: potassium Cl 20mEq/100mL bag 100 ML IV PRN ×2 (06:02→07:06)
--- NOTE | 2020-08-08 06:30 | NUR ---
Patient in room ICU 2045. I have received report from Juni SIFUENTES and had the opportunity to ask questions and assume patient care.
[2020-08-08] MEDS: FENTANYL-0.9 % NACL/PF 100 ML IV PRN ×2 (07:07→19:40)
[2020-08-08] MEDS: furosemide 40mg/4ml inj IV SCH ×2 (08:00→19:38)
[2020-08-08] MEDS: docusate sodium 100mg/10ml UD cup OGT SCH ×2 (08:15→19:38)
[2020-08-08] MEDS: famotidine/PF 10 mg/ml inj IV SCH ×2 (08:15→19:38)
[2020-08-08] MEDS: heparin, porcine 5000 units/ml vial SQ SCH ×2 (08:16→19:39)
[2020-08-08] MEDS: insulin regular, human U-100 3ml vial - multi-dose SQ SCH ×3 (08:20→17:38)
--- NOTE | 2020-08-08 11:54 | NUR ---
F/u 08/08: Pt tolerating TF at goal GRV WNL. Still no BM 10 days receiving routine colace and relistor. Pending MRI today to determine if pt to wake per network controller today. Receiving propofol at 40ml/hr and electrolyte replacement per protocol. Will continue to monitor. Recommendations: 1) Continuous OGTF using Vital High Protein at 70mL/hr goal; to provide 1680ml volume, 1411ml water, 1680 kcals, and 147g protein. 2) additional water flush 200ml Q4H 3) prealbumin q Saturday/; daily weights 4) routine bowel care; opioid antagonist per network controller Addendum: 08/08/20 at [address] Amended: Links added.
[2020-08-08] MEDS ORDERED: NORepinephrine 8mg/ 250ml NS 250 ML IV ONE (12:03)
--- NOTE | 2020-08-08 13:50 | NUR ---
patient preped and ready to go to [facility] for MRI, dial flow for propofol and fentanyl flowing at correct rate, RT bedside waiting for [facility] for transport
--- NOTE | 2020-08-08 14:35 | NUR ---
Patient taken to MRI at [facility] via EMS transport.
[2020-08-08] MEDS ORDERED: CISatracurium besylate 100 MG in NS 100ml IV IV PRN (15:10)
--- NOTE | 2020-08-08 15:17 | NUR ---
PT LEFT FOR MRI AT [facility] WITH AKI RN, EASTON SERVER ADMINISTRATOR, AND DARRELL. PT GOT INTO THE HALLWAY OF THE ICU BEFORE HER HR JUMPED TO 155 AND HER BP 265/120 WHILE BEING BAGGED WITH 100% FIO2 WITH BMV. RN, DARRELL, SERVER ADMINISTRATOR DECIDED CONTINUING WITH THE TRANSPORT WOULD BE DETRIMENTAL TO THE PT SO THE PT RETURNED TO HER ROOM AND PLACED BACK ON THE VENT 100% FIO2. SPO2 REMAINS 90%. PT HR COMING DOWN AND BP STABILIZING. Addendum: 08/08/20 at 1520 by Afshan Rojo RT Amended: Links added.
--- NOTE | 2020-08-08 15:20 | NUR ---
In hallway waiting for elevator, patient became tachycardic 156 and hypertensive 251/129, double checked all lines sedation not infusing as it was, opened lines, flushed and re connected patient. Dial a flow not flowing at rate as indicated on meter, adjusted again, and it began to flow as it should rechecked vital signs hr 153 blood pressure 265/142. conferred with soldering machine tender and RT patient is now mottled in lower extremities decided to return to ICU and stabilize patients heart rate and blood pressure. Informed DR. Batres of the events stated to start nimbex. Patient back in room back on monitor and ventilator, patient sating in the low 80% increased patients fi02 to 100% now sating 90%. Vital signs improving, blood pressure and heart rate still high but coming down. Talked with charge nurse stated it is likely due to a neuro response, called jez to cancel MRI appointment
[2020-08-08] MEDS: levetiracetam inj 1,000 MG in normal saline 100ml IV soln 90 ML IV SCH ×2 (15:26→19:38)
--- NOTE | 2020-08-08 18:11 | NUR ---
Problems reprioritized. Patient report given, questions answered & plan of care reviewed with Juni SIFUENTES.
--- NOTE | 2020-08-08 22:30 | NUR ---
ARLENE FROM [employer] CALLED FOR LATEST UPDATE
[2020-08-09] VITALS (25 sets, daily range): BP systolic 82–130; BP diastolic 38–64
[2020-08-09] MEDS: piperacillin/tazo 3.375gm/50ml 50 ML IV SCH ×4 (00:05→23:36)
[2020-08-09] MEDS: propofol 1000mg/100ml bottle 100 ML IV SCH ×7 (00:07→20:35)
[2020-08-09] MEDS: acetaminophen 325mg tablet OGT PRN ×2 (01:02→20:59)
[2020-08-09] MEDS: mineral oil/petrolatum ophthal oint EACHEYE SCH ×4 (01:49→20:30)
[2020-08-09] MEDS ORDERED: NORepinephrine 8mg/ 250ml NS 250 ML IV ONE (02:17)
--- NOTE | 2020-08-09 02:25 | NUR ---
given that patient is going to MRI in the am - attempted to leave levophed off and allow patient to possibly recover on own however map <60 x 1 hr now. called september elaine hadoop administrator to update. new order for levophed given. bp 82/39
[2020-08-09 02:43] LABS: BASOPHILS # (AUTO) 0.1 X10'3 (0-0.2); BASOPHILS % (AUTO) 0.5 % (0-1); EOSINOPHILS # (AUTO) 0.2 X10'3 (0-0.9); EOSINOPHILS % (AUTO) 1.4 % (0-6); HEMATOCRIT 25.9 % (35.0-45.0); HEMOGLOBIN 8.7 g/dl (12.0-16.0); LYMPHOCYTES # (AUTO) 1.2 X10'3 (1.1-4.8); LYMPHOCYTES % (AUTO) 7.1 % (21-51); MEAN CORPUSCULAR HEMOGLOBIN 31.9 PG (27.0-31.0); MEAN CORPUSCULAR HGB CONC 33.7 g/dL (33.0-36.5); MEAN CORPUSCULAR VOLUME 94.8 FL (78-98); MEAN PLATELET VOLUME 8.3 FL (7.4-10.4); MONOCYTES # (AUTO) 1.2 X10'3 (0-0.9); MONOCYTES % (AUTO) 7.2 % (2-12); NEUTROPHILS # (AUTO) 13.7 X10'3 (1.8-7.7); NEUTROPHILS % (AUTO) 83.8 % (42-75); PLATELET COUNT 364 X10'3 (140-440); RED BLOOD COUNT 2.73 X10'6 (4.20-5.60); RED CELL DISTRIBUTION WIDTH 14.2 % (11.5-14.5); WHITE BLOOD COUNT 16.4 X10'3 (4.5-11.0)
[2020-08-09 03:04] LABS: ALANINE AMINOTRANSFERASE 68 U/L (12-78); ALBUMIN 1.7 G/DL (3.4-5.0); ALBUMIN/GLOBULIN RATIO 0.4 (1.1-1.5); ALKALINE PHOSPHATASE 113 IU/L (46-116); ANION GAP 7 (8-16); ASPARTATE AMINO TRANSFERASE 44 U/L (10-37); BLOOD UREA NITROGEN 29 MG/DL (7-18); BUN/CREATININE RATIO 36.7 (6.6-38.0); CHLORIDE 98 MMOL/L (99-107); CREATININE 0.79 MG/DL (0.40-0.90); GLUCOSE 113 MG/DL (70-104); MAGNESIUM 2.1 MG/DL (1.5-2.4); PHOSPHORUS 4.6 MG/DL (2.3-4.5); POTASSIUM 3.1 MMOL/L (3.5-5.1); SODIUM 139 MMOL/L (135-145); TOTAL CARBON DIOXIDE 34.2 MMOL/L (24-32); TOTAL PROTEIN 6.2 G/DL (6.4-8.2); eGFR 73 ML/MIN
[2020-08-09 03:19] LABS: BILIRUBIN,TOTAL 0.6 MG/DL (0.1-1.0)
[2020-08-09] MEDS: ipratropium/albuterol 3ml nebule NEB SCH ×6 (03:31→22:43)
[2020-08-09 04:41] LABS: ABG BASE EXCESS 10.3 mmol/L (-2.0-2.0); ABG HCO3 34.5 mmol/L (22.0-26.0); ABG OXYGEN SATURATION 96.5 % (94-97); ABG PCO2 (T) 47.2 mmHg (32.0-45.0); ABG PO2 (T) 94.5 mmHg (75.0-100.0); ALLEN'S TEST POSITIVE; FCOHb 0.2 % (0.0-3.9); FMetHb 0.1 % (0.0-1.5); FO2Hb 96.2 % (94-97); PATIENT TEMPERATURE 38.2; PEEP 5 cm H2O; RESPIRATORY RATE 20 b/min; TIDAL VOLUME 400 mL; TOTAL HEMOGLOBIN 10.6 G/dl (12.0-16.0)
--- NOTE | 2020-08-09 06:00 | NUR ---
Patient in room ICU 2045. I have received report from Juni SIFUENTES and had the opportunity to ask questions and assume patient care.
--- NOTE | 2020-08-09 07:09 | NUR ---
Patient in room ICU 2045. I have received report from Juni SIFUENTES and had the opportunity to ask questions and assume patient care.
[2020-08-09] MEDS: famotidine/PF 10 mg/ml inj IV SCH ×2 (07:28→20:30)
[2020-08-09] MEDS: NORepinephrine 8mg/ 250ml NS 250 ML IV SCH ×2 (07:29→17:15)
[2020-08-09] MEDS: heparin, porcine 5000 units/ml vial SQ SCH ×2 (07:31→20:32)
[2020-08-09] MEDS: furosemide 40mg/4ml inj IV SCH ×4 (07:31→20:30)
[2020-08-09] MEDS: docusate sodium 100mg/10ml UD cup OGT SCH ×2 (07:32→20:00)
[2020-08-09] MEDS: methylnaltrexone br 12mg/0.6ml inj***SubQ only SQ SCH (07:32)
[2020-08-09] MEDS: levetiracetam-NS 1000mg/100ml 100 ML IV SCH ×2 (07:32→20:30)
[2020-08-09] MEDS: insulin regular, human U-100 3ml vial - multi-dose SQ SCH ×3 (09:00→17:15)
[2020-08-09] MEDS: scopolamine 1.5mg patch.TD72 TD SCH (09:42)
[2020-08-09] MEDS ORDERED: vancomycin/NS 1 GM ADD-VANTAGE 250 ML IV ONE (10:45)
[2020-08-09] MEDS: FENTANYL-0.9 % NACL/PF 100 ML IV PRN ×3 (11:01→23:49)
--- NOTE | 2020-08-09 18:18 | NUR ---
Problems reprioritized. Patient report given, questions answered & plan of care reviewed with Juni SIFUENTES.
[2020-08-09] MEDS: POTASSIUM BICARB 20meq eff tab 20 MEQ TABLET.EFF PO SCH (20:31)
[2020-08-09] MEDS: VANCOmycin 1250MG/NS 250ml Bag 250 ML IV SCH (23:31)
[2020-08-10] VITALS (23 sets, daily range): BP systolic 87–162; BP diastolic 41–71
[2020-08-10 02:21] LABS: BASOPHILS # (AUTO) 0.1 X10'3 (0-0.2); BASOPHILS % (AUTO) 0.5 % (0-1); EOSINOPHILS # (AUTO) 0.4 X10'3 (0-0.9); HEMATOCRIT 24.8 % (35.0-45.0); HEMOGLOBIN 8.6 g/dl (12.0-16.0); LYMPHOCYTES # (AUTO) 1.3 X10'3 (1.1-4.8); LYMPHOCYTES % (AUTO) 7.5 % (21-51); MEAN CORPUSCULAR HEMOGLOBIN 32.8 PG (27.0-31.0); MEAN CORPUSCULAR HGB CONC 34.7 g/dL (33.0-36.5); MEAN CORPUSCULAR VOLUME 94.5 FL (78-98); MEAN PLATELET VOLUME 8.4 FL (7.4-10.4); MONOCYTES # (AUTO) 1.2 X10'3 (0-0.9); MONOCYTES % (AUTO) 6.8 % (2-12); NEUTROPHILS % (AUTO) 83.2 % (42-75); PLATELET COUNT 440 X10'3 (140-440); RED BLOOD COUNT 2.63 X10'6 (4.20-5.60); RED CELL DISTRIBUTION WIDTH 14.2 % (11.5-14.5)
[2020-08-10 02:39] LABS: ALANINE AMINOTRANSFERASE 61 U/L (12-78); ALBUMIN 1.7 G/DL (3.4-5.0); ALBUMIN/GLOBULIN RATIO 0.4 (1.1-1.5); ALKALINE PHOSPHATASE 106 IU/L (46-116); ANION GAP 4 (8-16); ASPARTATE AMINO TRANSFERASE 37 U/L (10-37); BILIRUBIN,TOTAL 0.7 MG/DL (0.1-1.0); BLOOD UREA NITROGEN 27 MG/DL (7-18); BUN/CREATININE RATIO 38.6 (6.6-38.0); CALCIUM 8.7 MG/DL (8.5-10.1); CHLORIDE 102 MMOL/L (99-107); GLUCOSE 147 MG/DL (70-104); MAGNESIUM 2.1 MG/DL (1.5-2.4); PHOSPHORUS 3.9 MG/DL (2.3-4.5); SODIUM 142 MMOL/L (135-145); TOTAL CARBON DIOXIDE 36.1 MMOL/L (24-32); TOTAL PROTEIN 6.3 G/DL (6.4-8.2); eGFR 84 ML/MIN
[2020-08-10 02:41] LABS: POTASSIUM 2.9 MMOL/L (3.5-5.1)
[2020-08-10] MEDS: potassium Cl 20mEq/100mL bag 100 ML IV PRN ×4 (03:15→05:42)
[2020-08-10] MEDS: furosemide 40mg/4ml inj IV SCH ×3 (03:18→20:17)
[2020-08-10] MEDS: mineral oil/petrolatum ophthal oint EACHEYE SCH ×4 (03:19→20:17)
[2020-08-10] MEDS: ipratropium/albuterol 3ml nebule NEB SCH ×6 (03:45→23:18)
[2020-08-10 04:11] LABS: ABG BASE EXCESS 7.8 mmol/L (-2.0-2.0); ABG HCO3 34.3 mmol/L (22.0-26.0); ABG OXYGEN SATURATION 93.8 % (94-97); ABG PCO2 (T) 61.3 mmHg (32.0-45.0); ALLEN'S TEST POSITIVE; FCOHb 0.3 % (0.0-3.9); FMetHb 0.2 % (0.0-1.5); FO2Hb 93.3 % (94-97); PATIENT TEMPERATURE 38.2; PEEP 5 cm H2O; RESPIRATORY RATE 15 b/min; TIDAL VOLUME 400 mL; TOTAL HEMOGLOBIN 11.1 G/dl (12.0-16.0)
[2020-08-10] MEDS: propofol 1000mg/100ml bottle 100 ML IV SCH ×5 (04:11→20:16)
--- NOTE | 2020-08-10 07:31 | NUR ---
Patient in room ICU 2045. I have received report from Juni Sharif and had the opportunity to ask questions and assume patient care.
[2020-08-10] MEDS: levetiracetam-NS 1000mg/100ml 100 ML IV SCH ×2 (07:54→20:29)
[2020-08-10] MEDS: piperacillin/tazo 3.375gm/50ml 50 ML IV SCH ×2 (07:54→16:46)
[2020-08-10] MEDS: docusate sodium 100mg/10ml UD cup OGT SCH ×2 (07:54→20:17)
[2020-08-10] MEDS: heparin, porcine 5000 units/ml vial SQ SCH ×2 (07:55→20:18)
[2020-08-10] MEDS: famotidine/PF 10 mg/ml inj IV SCH ×2 (07:55→20:17)
[2020-08-10] MEDS: POTASSIUM BICARB 20meq eff tab 20 MEQ TABLET.EFF PO SCH ×2 (07:56→20:18)
[2020-08-10] MEDS: FENTANYL-0.9 % NACL/PF 100 ML IV PRN ×2 (09:08→21:37)
--- NOTE | 2020-08-10 11:07 | NUR ---
Rounds NOTE; Dr. Shaw would like a 24hr EEG, he will call and updated the daughter this afternoon.
[2020-08-10] MEDS: VANCOmycin 1250MG/NS 250ml Bag 250 ML IV SCH ×2 (13:06→23:43)
[2020-08-10] MEDS: acetaminophen 325mg tablet OGT PRN (14:50)
--- NOTE | 2020-08-10 18:15 | NUR ---
Patient in room ICU 2045. I have received report from Krystal SIFUENTES and had the opportunity to ask questions and assume patient care.
--- NOTE | 2020-08-10 18:47 | NUR ---
Problems reprioritized. Patient report given, questions answered & plan of care reviewed with Alejandra SIFUENTES.
[2020-08-10] MEDS: lactobacillus rhamnosus 10,000 MMU CELLS/CAPSULE OGT SCH (20:17)
[2020-08-11] VITALS (23 sets, daily range): BP systolic 88–136; BP diastolic 44–73
[2020-08-11] MEDS: propofol 1000mg/100ml bottle 100 ML IV SCH ×4 (00:03→11:37)
[2020-08-11] MEDS: piperacillin/tazo 3.375gm/50ml 50 ML IV SCH ×3 (00:04→16:16)
[2020-08-11 02:45] LABS: BASOPHILS # (AUTO) 0.2 X10'3 (0-0.2); BASOPHILS % (AUTO) 1.4 % (0-1); EOSINOPHILS # (AUTO) 0.3 X10'3 (0-0.9); EOSINOPHILS % (AUTO) 1.8 % (0-6); HEMATOCRIT 25.9 % (35.0-45.0); HEMOGLOBIN 8.9 g/dl (12.0-16.0); LYMPHOCYTES # (AUTO) 1.3 X10'3 (1.1-4.8); MEAN CORPUSCULAR HEMOGLOBIN 32.3 PG (27.0-31.0); MEAN CORPUSCULAR HGB CONC 34.2 g/dL (33.0-36.5); MEAN CORPUSCULAR VOLUME 94.4 FL (78-98); MEAN PLATELET VOLUME 9.1 FL (7.4-10.4); MONOCYTES # (AUTO) 1.1 X10'3 (0-0.9); MONOCYTES % (AUTO) 6.7 % (2-12); NEUTROPHILS # (AUTO) 13.5 X10'3 (1.8-7.7); NEUTROPHILS % (AUTO) 82.1 % (42-75); PLATELET COUNT 473 X10'3 (140-440); RED BLOOD COUNT 2.74 X10'6 (4.20-5.60); RED CELL DISTRIBUTION WIDTH 14.4 % (11.5-14.5); WHITE BLOOD COUNT 16.4 X10'3 (4.5-11.0)
[2020-08-11] MEDS: ipratropium/albuterol 3ml nebule NEB SCH ×6 (03:00→23:12)
[2020-08-11 03:03] LABS: ALANINE AMINOTRANSFERASE 65 U/L (12-78); ALBUMIN 1.7 G/DL (3.4-5.0); ALBUMIN/GLOBULIN RATIO 0.4 (1.1-1.5); ALKALINE PHOSPHATASE 115 IU/L (46-116); ANION GAP 7 (8-16); ASPARTATE AMINO TRANSFERASE 45 U/L (10-37); BILIRUBIN,TOTAL 0.9 MG/DL (0.1-1.0); BLOOD UREA NITROGEN 24 MG/DL (7-18); BUN/CREATININE RATIO 34.3 (6.6-38.0); CALCIUM 8.5 MG/DL (8.5-10.1); CHLORIDE 100 MMOL/L (99-107); GLUCOSE 145 MG/DL (70-104); PHOSPHORUS 3.4 MG/DL (2.3-4.5); PREALBUMIN 16.2 MG/DL (19-36); SODIUM 137 MMOL/L (135-145); TOTAL CARBON DIOXIDE 29.8 MMOL/L (24-32); TOTAL PROTEIN 6.5 G/DL (6.4-8.2); TRIGLYCERIDES 633 MG/DL (20-135); eGFR 84 ML/MIN
[2020-08-11 03:06] LABS: POTASSIUM 2.8 MMOL/L (3.5-5.1)
[2020-08-11] MEDS: potassium Cl 20mEq/100mL bag 100 ML IV PRN (03:16)
[2020-08-11 03:26] LABS: ABG BASE EXCESS 7.3 mmol/L (-2.0-2.0); ABG HCO3 29.4 mmol/L (22.0-26.0); ABG PCO2 (T) 33.3 mmHg (32.0-45.0); ABG PO2 (T) 57.8 mmHg (75.0-100.0); ALLEN'S TEST POSITIVE; FCOHb 0.1 % (0.0-3.9); FMetHb 0.3 % (0.0-1.5); FO2Hb 89.6 % (94-97); PATIENT TEMPERATURE 37.6; PEEP 5 cm H2O; RESPIRATORY RATE 20 b/min; TIDAL VOLUME 400 mL; TOTAL HEMOGLOBIN 9.5 G/dl (12.0-16.0)
[2020-08-11] MEDS: mineral oil/petrolatum ophthal oint EACHEYE SCH ×4 (03:51→19:33)
--- NOTE | 2020-08-11 06:48 | NUR ---
Problems reprioritized. Patient report given, questions answered & plan of care reviewed with Manolo SIFUENTES.
[2020-08-11] MEDS ORDERED: furosemide inj 100 ML IV SCH (08:35)
[2020-08-11] MEDS: levetiracetam-NS 1000mg/100ml 100 ML IV SCH (09:04)
[2020-08-11] MEDS: famotidine/PF 10 mg/ml inj IV SCH ×2 (09:04→19:31)
[2020-08-11] MEDS: POTASSIUM BICARB 20meq eff tab 20 MEQ TABLET.EFF PO SCH (09:45)
[2020-08-11] MEDS: POTASSIUM BICARB 20meq eff tab 20 MEQ TABLET.EFF OGT PRN ×2 (09:45→14:14)
[2020-08-11] MEDS: heparin, porcine 5000 units/ml vial SQ SCH ×2 (09:46→19:30)
[2020-08-11] MEDS: docusate sodium 100mg/10ml UD cup OGT SCH ×2 (09:46→19:26)
[2020-08-11] MEDS: lactobacillus rhamnosus 10,000 MMU CELLS/CAPSULE OGT SCH ×2 (09:46→19:26)
[2020-08-11] MEDS: methylnaltrexone br 12mg/0.6ml inj***SubQ only SQ SCH (09:46)
[2020-08-11] MEDS ORDERED: VANCOMYCIN LEVEL IV ONE (10:30)
[2020-08-11] MEDS: VANCOmycin 1250MG/NS 250ml Bag 250 ML IV SCH (11:22)
[2020-08-11] MEDS: FENTANYL-0.9 % NACL/PF 100 ML IV PRN (11:41)
--- NOTE | 2020-08-11 12:16 | NUR ---
F/u 08/11: Pt tolerating TF at goal GRV WNL. K 2.8 receiving replacement per EMR. Pt continues to receive propofol currently at 27ml/hr today w/ TG 633; to wean propofol and start tricor as well as versed per clinical interviewer at rounds. Rectal tube in place s/p large BM 08/09; considerable output per RN though output pending in I&O at this time. Will continue to monitor. Recommendations: 1) Continuous OGTF using Vital High Protein at 70mL/hr goal; to provide 1680ml volume, 1411ml water, 1680 kcals, and 147g protein. 2) additional water flush 200ml Q4H 3) prealbumin q Saturday/; daily weights 4) routine bowel care; opioid antagonist per clinical interviewer Addendum: 08/11/20 at [address] Amended: Links added.
[2020-08-11] MEDS: furosemide 1,000 MG in NS 250ml IV soln IV SCH (12:25)
[2020-08-11] MEDS: midazolam 100mg in NS 100 ML INFUSION IV PRN ×2 (12:52→19:35)
[2020-08-11] MEDS ORDERED: acetaZOLAMIDE 250mg tablet PO SCH (13:00)
[2020-08-11] MEDS ORDERED: fenofibrate 48mg tablet PO SCH (13:00)
[2020-08-11] MEDS ORDERED: levetiracetam inj 1,000 MG in normal saline 100ml IV soln 90 ML IV ONE ×2 (13:55→20:00)
[2020-08-11] MEDS: LevETIRAcetam 1,000MG in NORMAL SALINE 100ml IV.SOLN IV SCH ×2 (14:14→19:33)
--- NOTE | 2020-08-11 15:00 | NUR ---
DC rectal tube. There was no output in the bag or tubing. No output charted on the rectal tube. A small amount of hard stool physically removed from rectum
[2020-08-11] MEDS: NORepinephrine 8mg/ 250ml NS 250 ML IV SCH (15:22)
--- NOTE | 2020-08-11 15:43 | NUR ---
Tele neuro consult submitted on the intranet
[2020-08-11] MEDS: acetaZOLAMIDE 250mg tablet OGT SCH (16:24)
--- NOTE | 2020-08-11 18:10 | NUR ---
I have reviewed and agree with all medications administered and interventions performed by AEROSOL SUPERVISOR Student Netta Servin.
--- NOTE | 2020-08-11 18:15 | NUR ---
Patient in room ICU 2045. I have received report from Rusty SIFUENTES and had the opportunity to ask questions and assume patient care.
[2020-08-11] MEDS: POTASSIUM BICARB 20meq eff tab 20 MEQ TABLET.EFF OGT SCH (19:26)
[2020-08-11] MEDS ORDERED: FOSphenytoin 500mg inj. 1,000 MG in normal saline 100ml IV soln 80 ML IV ONE (21:00)
[2020-08-11] MEDS: LACOSAMIDE 50 MG TABLET PO SCH (21:42)
[2020-08-12] VITALS (24 sets, daily range): BP systolic 84–122; BP diastolic 44–62
[2020-08-12] MEDS: VANCOmycin 1250MG/NS 250ml Bag 250 ML IV SCH (00:01)
[2020-08-12] MEDS: FENTANYL-0.9 % NACL/PF 100 ML IV PRN (00:02)
[2020-08-12] MEDS: acetaZOLAMIDE 250mg tablet OGT SCH ×3 (00:24→15:08)
[2020-08-12] MEDS: piperacillin/tazo 3.375gm/50ml 50 ML IV SCH ×2 (00:24→08:23)
[2020-08-12] MEDS: ipratropium/albuterol 3ml nebule NEB SCH ×6 (02:43→23:21)
[2020-08-12 03:01] LABS: ABG BASE EXCESS 7.1 mmol/L (-2.0-2.0); ABG HCO3 33.1 mmol/L (22.0-26.0); ABG OXYGEN SATURATION 89.2 % (94-97); ABG PCO2 (T) 56.8 mmHg (32.0-45.0); ABG PO2 (T) 65.2 mmHg (75.0-100.0); ALLEN'S TEST POSITIVE; FCOHb 0.5 % (0.0-3.9); FMetHb 0.3 % (0.0-1.5); FO2Hb 88.5 % (94-97); PATIENT TEMPERATURE 37.7; PEEP 5 cm H2O; RESPIRATORY RATE 16 b/min; TIDAL VOLUME 400 mL; TOTAL HEMOGLOBIN 9.6 G/dl (12.0-16.0)
[2020-08-12 03:36] LABS: BASOPHILS # (AUTO) 0.2 X10'3 (0-0.2); BASOPHILS % (AUTO) 1.3 % (0-1); EOSINOPHILS # (AUTO) 0.4 X10'3 (0-0.9); HEMATOCRIT 26.8 % (35.0-45.0); HEMOGLOBIN 8.8 g/dl (12.0-16.0); LYMPHOCYTES # (AUTO) 1.2 X10'3 (1.1-4.8); LYMPHOCYTES % (AUTO) 9.3 % (21-51); MEAN CORPUSCULAR HEMOGLOBIN 31.5 PG (27.0-31.0); MEAN CORPUSCULAR HGB CONC 32.6 g/dL (33.0-36.5); MEAN CORPUSCULAR VOLUME 96.5 FL (78-98); MEAN PLATELET VOLUME 9.1 FL (7.4-10.4); MONOCYTES # (AUTO) 0.7 X10'3 (0-0.9); MONOCYTES % (AUTO) 5.3 % (2-12); NEUTROPHILS # (AUTO) 10.8 X10'3 (1.8-7.7); NEUTROPHILS % (AUTO) 81.1 % (42-75); PLATELET COUNT 539 X10'3 (140-440); RED BLOOD COUNT 2.78 X10'6 (4.20-5.60); RED CELL DISTRIBUTION WIDTH 14.6 % (11.5-14.5); WHITE BLOOD COUNT 13.3 X10'3 (4.5-11.0)
[2020-08-12 04:01] LABS: ALANINE AMINOTRANSFERASE 61 U/L (12-78); ALBUMIN 1.8 G/DL (3.4-5.0); ALBUMIN/GLOBULIN RATIO 0.4 (1.1-1.5); ALKALINE PHOSPHATASE 102 IU/L (46-116); ANION GAP 8 (8-16); ASPARTATE AMINO TRANSFERASE 31 U/L (10-37); BILIRUBIN,TOTAL 0.6 MG/DL (0.1-1.0); BLOOD UREA NITROGEN 28 MG/DL (7-18); BUN/CREATININE RATIO 38.9 (6.6-38.0); CALCIUM 8.9 MG/DL (8.5-10.1); CHLORIDE 99 MMOL/L (99-107); CREATININE 0.72 MG/DL (0.40-0.90); GLUCOSE 135 MG/DL (70-104); MAGNESIUM 2.1 MG/DL (1.5-2.4); PHOSPHORUS 6.1 MG/DL (2.3-4.5); POTASSIUM 3.7 MMOL/L (3.5-5.1); SODIUM 139 MMOL/L (135-145); TOTAL CARBON DIOXIDE 32.5 MMOL/L (24-32); TOTAL PROTEIN 6.7 G/DL (6.4-8.2); eGFR 81 ML/MIN
[2020-08-12] MEDS: mineral oil/petrolatum ophthal oint EACHEYE SCH ×4 (04:48→19:32)
[2020-08-12] MEDS: midazolam 100mg in NS 100 ML INFUSION IV PRN ×2 (04:49→15:18)
--- NOTE | 2020-08-12 06:52 | NUR ---
Problems reprioritized. Patient report given, questions answered & plan of care reviewed with Kaylie SIFUENTES.
[2020-08-12] MEDS: levetiracetamNACL 1500mg/100mL 100 ML IV SCH ×2 (08:23→19:28)
[2020-08-12] MEDS: docusate sodium 100mg/10ml UD cup OGT SCH ×2 (08:23→19:30)
[2020-08-12] MEDS: POTASSIUM BICARB 20meq eff tab 20 MEQ TABLET.EFF OGT SCH ×2 (08:24→19:31)
[2020-08-12] MEDS: LACOSAMIDE 50 MG TABLET PO SCH ×2 (08:24→19:31)
[2020-08-12] MEDS: heparin, porcine 5000 units/ml vial SQ SCH ×2 (08:25→19:32)
[2020-08-12] MEDS: famotidine/PF 10 mg/ml inj IV SCH ×2 (08:25→19:31)
[2020-08-12] MEDS: lactobacillus rhamnosus 10,000 MMU CELLS/CAPSULE OGT SCH ×2 (08:25→19:31)
[2020-08-12] MEDS: FOSphenytoin 100mg/2ml inj IV SCH ×2 (08:42→15:11)
[2020-08-12] MEDS: fenofibrate 48mg tablet OGT SCH (08:42)
[2020-08-12] MEDS: scopolamine 1.5mg patch.TD72 TD SCH (08:43)
[2020-08-12 09:54] LABS: ALBUMIN 1.9 G/DL (3.4-5.0); ANION GAP 6 (8-16); BLOOD UREA NITROGEN 32 MG/DL (7-18); BUN/CREATININE RATIO 41.6 (6.6-38.0); CALCIUM 8.8 MG/DL (8.5-10.1); CHLORIDE 96 MMOL/L (99-107); CREATININE 0.77 MG/DL (0.40-0.90); GLUCOSE 160 MG/DL (70-104); MAGNESIUM 2.2 MG/DL (1.5-2.4); PHOSPHORUS 6.2 MG/DL (2.3-4.5); POTASSIUM 4.1 MMOL/L (3.5-5.1); SODIUM 137 MMOL/L (135-145); TOTAL CARBON DIOXIDE 34.7 MMOL/L (24-32); eGFR 75 ML/MIN
[2020-08-12] MEDS: cefepime 1GM/NS ADD-VANTAGE 100 ML IV SCH ×2 (11:31→19:57)
[2020-08-12] MEDS: linezolid 600mg/300ml PREMIX 300 ML IV SCH ×2 (12:06→20:02)
[2020-08-12] MEDS: acetaminophen 325mg/10.15ml oral unit dose solution OGT PRN (12:58)
[2020-08-12 15:15] LABS: ALBUMIN 1.9 G/DL (3.4-5.0); ANION GAP 8 (8-16); BLOOD UREA NITROGEN 30 MG/DL (7-18); CALCIUM 8.8 MG/DL (8.5-10.1); CHLORIDE 95 MMOL/L (99-107); CREATININE 0.81 MG/DL (0.40-0.90); GLUCOSE 166 MG/DL (70-104); MAGNESIUM 2.2 MG/DL (1.5-2.4); PHOSPHORUS 5.4 MG/DL (2.3-4.5); POTASSIUM 3.3 MMOL/L (3.5-5.1); SODIUM 136 MMOL/L (135-145); TOTAL CARBON DIOXIDE 32.8 MMOL/L (24-32); eGFR 71 ML/MIN
[2020-08-12] MEDS: potassium Cl 20mEq/100mL bag 100 ML IV PRN ×2 (15:54→17:30)
--- NOTE | 2020-08-12 18:15 | NUR ---
Patient in room ICU 2045. I have received report from Kaylie SIFUENTES and had the opportunity to ask questions and assume patient care.
[2020-08-12] MEDS: NORepinephrine 8mg/ 250ml NS 250 ML IV SCH (19:23)
[2020-08-12 21:45] LABS: ALBUMIN 1.9 G/DL (3.4-5.0); ANION GAP 10 (8-16); BLOOD UREA NITROGEN 31 MG/DL (7-18); BUN/CREATININE RATIO 37.8 (6.6-38.0); CALCIUM 8.9 MG/DL (8.5-10.1); CHLORIDE 96 MMOL/L (99-107); CREATININE 0.82 MG/DL (0.40-0.90); GLUCOSE 161 MG/DL (70-104); MAGNESIUM 2.3 MG/DL (1.5-2.4); PHOSPHORUS 5.1 MG/DL (2.3-4.5); POTASSIUM 3.7 MMOL/L (3.5-5.1); SODIUM 137 MMOL/L (135-145); TOTAL CARBON DIOXIDE 30.9 MMOL/L (24-32); eGFR 70 ML/MIN
[2020-08-13] VITALS (24 sets, daily range): BP systolic 91–160; BP diastolic 44–83
[2020-08-13] MEDS: acetaZOLAMIDE 250mg tablet OGT SCH ×2 (00:35→07:58)
[2020-08-13] MEDS: FOSphenytoin 100mg/2ml inj IV SCH ×4 (00:36→23:34)
[2020-08-13] MEDS: mineral oil/petrolatum ophthal oint EACHEYE SCH ×4 (02:00→20:15)
[2020-08-13] MEDS: ipratropium/albuterol 3ml nebule NEB SCH ×6 (02:38→23:14)
[2020-08-13 02:50] LABS: ABG BASE EXCESS 6.2 mmol/L (-2.0-2.0); ABG HCO3 31.7 mmol/L (22.0-26.0); ABG OXYGEN SATURATION 93.3 % (94-97); ABG PCO2 (T) 51.5 mmHg (32.0-45.0); ALLEN'S TEST POSITIVE; FCOHb 0.4 % (0.0-3.9); FMetHb 0.3 % (0.0-1.5); FO2Hb 92.6 % (94-97); PATIENT TEMPERATURE 37.5; PEEP 5 cm H2O; RESPIRATORY RATE 16 b/min; TIDAL VOLUME 400 mL; TOTAL HEMOGLOBIN 10.3 G/dl (12.0-16.0)
[2020-08-13 03:23] LABS: BASOPHILS # (AUTO) 0.1 X10'3 (0-0.2); MONOCYTES # (AUTO) 1.1 X10'3 (0-0.9)
[2020-08-13 03:25] LABS: BASOPHILS % (AUTO) 0.9 % (0-1); EOSINOPHILS # (AUTO) 0.5 X10'3 (0-0.9); EOSINOPHILS % (AUTO) 3.1 % (0-6); HEMATOCRIT 27.2 % (35.0-45.0); LYMPHOCYTES # (AUTO) 1.3 X10'3 (1.1-4.8); LYMPHOCYTES % (AUTO) 8.5 % (21-51); MEAN CORPUSCULAR HEMOGLOBIN 31.9 PG (27.0-31.0); MEAN CORPUSCULAR HGB CONC 33.2 g/dL (33.0-36.5); MEAN CORPUSCULAR VOLUME 96.1 FL (78-98); MEAN PLATELET VOLUME 8.8 FL (7.4-10.4); MONOCYTES % (AUTO) 7.4 % (2-12); NEUTROPHILS % (AUTO) 80.1 % (42-75); PLATELET COUNT 705 X10'3 (140-440); RED BLOOD COUNT 2.83 X10'6 (4.20-5.60); RED CELL DISTRIBUTION WIDTH 14.7 % (11.5-14.5)
[2020-08-13 03:26] LABS: ALANINE AMINOTRANSFERASE 46 U/L (12-78); ALBUMIN/GLOBULIN RATIO 0.4 (1.1-1.5); ALKALINE PHOSPHATASE 101 IU/L (46-116); ANION GAP 9 (8-16); ASPARTATE AMINO TRANSFERASE 20 U/L (10-37); BILIRUBIN,TOTAL 0.6 MG/DL (0.1-1.0); BLOOD UREA NITROGEN 30 MG/DL (7-18); BUN/CREATININE RATIO 36.6 (6.6-38.0); CALCIUM 9.4 MG/DL (8.5-10.1); CHLORIDE 97 MMOL/L (99-107); CREATININE 0.82 MG/DL (0.40-0.90); GLUCOSE 140 MG/DL (70-104); MAGNESIUM 2.5 MG/DL (1.5-2.4); PHOSPHORUS 5.7 MG/DL (2.3-4.5); POTASSIUM 3.5 MMOL/L (3.5-5.1); SODIUM 138 MMOL/L (135-145); TOTAL CARBON DIOXIDE 32.5 MMOL/L (24-32); TOTAL PROTEIN 7.3 G/DL (6.4-8.2); eGFR 70 ML/MIN
[2020-08-13] MEDS: midazolam 100mg in NS 100 ML INFUSION IV PRN (04:54)
--- NOTE | 2020-08-13 06:23 | NUR ---
Problems reprioritized. Patient report given, questions answered & plan of care reviewed with Kaylie SIFUENTES.
[2020-08-13] MEDS: linezolid 600mg/300ml PREMIX 300 ML IV SCH ×2 (07:57→20:09)
[2020-08-13] MEDS: levetiracetamNACL 1500mg/100mL 100 ML IV SCH ×2 (07:57→20:08)
[2020-08-13] MEDS: lactobacillus rhamnosus 10,000 MMU CELLS/CAPSULE OGT SCH ×2 (07:57→20:15)
[2020-08-13] MEDS: POTASSIUM BICARB 20meq eff tab 20 MEQ TABLET.EFF OGT SCH ×2 (07:58→20:11)
[2020-08-13] MEDS: docusate sodium 100mg/10ml UD cup OGT SCH ×2 (07:58→20:11)
[2020-08-13] MEDS: LACOSAMIDE 50 MG TABLET PO SCH ×2 (07:58→20:15)
[2020-08-13] MEDS: famotidine/PF 10 mg/ml inj IV SCH ×2 (07:58→20:15)
[2020-08-13] MEDS: heparin, porcine 5000 units/ml vial SQ SCH ×2 (07:58→20:15)
[2020-08-13] MEDS: cefepime 1GM/NS ADD-VANTAGE 100 ML IV SCH ×2 (07:59→20:10)
[2020-08-13] MEDS: methylnaltrexone br 12mg/0.6ml inj***SubQ only SQ SCH (08:00)
[2020-08-13] MEDS: furosemide 1,000 MG in NS 250ml IV soln IV SCH (08:45)
[2020-08-13 09:15] LABS: ALBUMIN 1.9 G/DL (3.4-5.0); ANION GAP 5 (8-16); BLOOD UREA NITROGEN 30 MG/DL (7-18); CALCIUM 9.8 MG/DL (8.5-10.1); CHLORIDE 100 MMOL/L (99-107); CREATININE 0.75 MG/DL (0.40-0.90); GLUCOSE 120 MG/DL (70-104); MAGNESIUM 2.4 MG/DL (1.5-2.4); PHOSPHORUS 4.8 MG/DL (2.3-4.5); POTASSIUM 3.5 MMOL/L (3.5-5.1); SODIUM 137 MMOL/L (135-145); TOTAL CARBON DIOXIDE 32.3 MMOL/L (24-32); eGFR 78 ML/MIN
--- NOTE | 2020-08-13 09:36 | NUR ---
Pt receiving Zyvox, low tyramine nutrition therapy education deferred at this time as pt remains intubated on the vent. Will continue to follow closely. Addendum: 08/13/20 at [address] Amended: Links added.
[2020-08-13] MEDS: fenofibrate 48mg tablet OGT SCH (10:02)
[2020-08-13 15:07] LABS: ALBUMIN 1.9 G/DL (3.4-5.0); ANION GAP 7 (8-16); BLOOD UREA NITROGEN 30 MG/DL (7-18); BUN/CREATININE RATIO 37.5 (6.6-38.0); CALCIUM 8.8 MG/DL (8.5-10.1); CHLORIDE 98 MMOL/L (99-107); GLUCOSE 159 MG/DL (70-104); MAGNESIUM 2.4 MG/DL (1.5-2.4); PHOSPHORUS 4.2 MG/DL (2.3-4.5); SODIUM 137 MMOL/L (135-145); TOTAL CARBON DIOXIDE 32.5 MMOL/L (24-32); eGFR 72 ML/MIN
[2020-08-13] MEDS: potassium Cl 20mEq/100mL bag 100 ML IV PRN ×3 (15:24→19:27)
[2020-08-13 21:21] LABS: ALBUMIN 1.9 G/DL (3.4-5.0); ANION GAP 7 (8-16); BLOOD UREA NITROGEN 30 MG/DL (7-18); CALCIUM 8.5 MG/DL (8.5-10.1); CHLORIDE 98 MMOL/L (99-107); CREATININE 0.77 MG/DL (0.40-0.90); GLUCOSE 244 MG/DL (70-104); MAGNESIUM 2.3 MG/DL (1.5-2.4); PHOSPHORUS 3.6 MG/DL (2.3-4.5); POTASSIUM 3.8 MMOL/L (3.5-5.1); SODIUM 134 MMOL/L (135-145); TOTAL CARBON DIOXIDE 28.9 MMOL/L (24-32); eGFR 75 ML/MIN
[2020-08-13] MEDS: NORepinephrine 8mg/ 250ml NS 250 ML IV SCH (23:24)
[2020-08-14] VITALS (23 sets, daily range): BP systolic 108–212; BP diastolic 46–114
[2020-08-14] MEDS: mineral oil/petrolatum ophthal oint EACHEYE SCH ×4 (01:48→20:00)
[2020-08-14 02:42] LABS: BASOPHILS # (AUTO) 0.1 X10'3 (0-0.2); BASOPHILS % (AUTO) 0.7 % (0-1); EOSINOPHILS # (AUTO) 0.4 X10'3 (0-0.9); MONOCYTES # (AUTO) 1.3 X10'3 (0-0.9)
[2020-08-14 02:45] LABS: EOSINOPHILS % (AUTO) 2.2 % (0-6); LYMPHOCYTES % (AUTO) 6.5 % (21-51); MEAN CORPUSCULAR HEMOGLOBIN 31.7 PG (27.0-31.0); MEAN CORPUSCULAR HGB CONC 33.3 g/dL (33.0-36.5); MEAN CORPUSCULAR VOLUME 95.2 FL (78-98); MEAN PLATELET VOLUME 8.5 FL (7.4-10.4); MONOCYTES % (AUTO) 8.3 % (2-12); NEUTROPHILS # (AUTO) 13.2 X10'3 (1.8-7.7); NEUTROPHILS % (AUTO) 82.3 % (42-75); PLATELET COUNT 752 X10'3 (140-440); RED BLOOD COUNT 2.84 X10'6 (4.20-5.60); RED CELL DISTRIBUTION WIDTH 14.4 % (11.5-14.5); WHITE BLOOD COUNT 16.1 X10'3 (4.5-11.0)
--- NOTE | 2020-08-14 03:03 | NUR ---
Pt's b/p went up to 212/114, heart rate to 130. Pt appeared to be twitching on right chest. Pt's pupils equal. it applications manager aware. Will continue to monitor.
[2020-08-14 03:05] LABS: ALANINE AMINOTRANSFERASE 35 U/L (12-78); ALBUMIN/GLOBULIN RATIO 0.4 (1.1-1.5); ALKALINE PHOSPHATASE 93 IU/L (46-116); ANION GAP 8 (8-16); ASPARTATE AMINO TRANSFERASE 19 U/L (10-37); BILIRUBIN,TOTAL 0.4 MG/DL (0.1-1.0); BLOOD UREA NITROGEN 32 MG/DL (7-18); BUN/CREATININE RATIO 40.5 (6.6-38.0); CALCIUM 9.2 MG/DL (8.5-10.1); CHLORIDE 100 MMOL/L (99-107); CREATININE 0.79 MG/DL (0.40-0.90); GLUCOSE 200 MG/DL (70-104); MAGNESIUM 2.7 MG/DL (1.5-2.4); PHOSPHORUS 3.5 MG/DL (2.3-4.5); POTASSIUM 3.2 MMOL/L (3.5-5.1); SODIUM 138 MMOL/L (135-145); TOTAL CARBON DIOXIDE 29.8 MMOL/L (24-32); TOTAL PROTEIN 7.2 G/DL (6.4-8.2); eGFR 73 ML/MIN
[2020-08-14] MEDS: ipratropium/albuterol 3ml nebule NEB SCH ×6 (03:14→23:09)
[2020-08-14] MEDS: potassium Cl 20mEq/100mL bag 100 ML IV PRN ×2 (03:26→20:43)
[2020-08-14 03:31] LABS: ABG BASE EXCESS 7.4 mmol/L (-2.0-2.0); ABG HCO3 31.4 mmol/L (22.0-26.0); ABG OXYGEN SATURATION 93.4 % (94-97); ABG PCO2 (T) 43.9 mmHg (32.0-45.0); ABG PO2 (T) 72.5 mmHg (75.0-100.0); ALLEN'S TEST POSITIVE; FCOHb 0.4 % (0.0-3.9); FMetHb 0.1 % (0.0-1.5); FO2Hb 92.9 % (94-97); PATIENT TEMPERATURE 38.1; PEEP 5 cm H2O; RESPIRATORY RATE 16 b/min; TIDAL VOLUME 400 mL; TOTAL HEMOGLOBIN 10.6 G/dl (12.0-16.0)
[2020-08-14] MEDS: midazolam 100mg in NS 100 ML INFUSION IV PRN (04:32)
--- NOTE | 2020-08-14 06:59 | NUR ---
Patient in room ICU 2045. I have received report from Ivania Sharif and had the opportunity to ask questions and assume patient care.
[2020-08-14] MEDS: levetiracetamNACL 1500mg/100mL 100 ML IV SCH ×2 (08:35→20:01)
[2020-08-14] MEDS: linezolid 600mg/300ml PREMIX 300 ML IV SCH ×2 (08:37→20:02)
[2020-08-14] MEDS: docusate sodium 100mg/10ml UD cup OGT SCH ×2 (08:38→20:00)
[2020-08-14] MEDS: cefepime 1GM/NS ADD-VANTAGE 100 ML IV SCH ×2 (08:38→20:01)
[2020-08-14] MEDS: famotidine/PF 10 mg/ml inj IV SCH ×2 (08:38→20:01)
[2020-08-14] MEDS: LACOSAMIDE 50 MG TABLET PO SCH ×2 (08:38→20:02)
[2020-08-14] MEDS: lactobacillus rhamnosus 10,000 MMU CELLS/CAPSULE OGT SCH ×2 (08:38→20:02)
[2020-08-14] MEDS: POTASSIUM BICARB 20meq eff tab 20 MEQ TABLET.EFF OGT SCH ×2 (08:38→20:02)
[2020-08-14] MEDS: heparin, porcine 5000 units/ml vial SQ SCH ×2 (08:39→20:03)
[2020-08-14] MEDS: fenofibrate 48mg tablet OGT SCH (08:40)
[2020-08-14] MEDS: FOSphenytoin 100mg/2ml inj IV SCH ×2 (10:20→16:06)
--- NOTE | 2020-08-14 11:28 | NUR ---
called Dr. Shaw to clarify orders, he stated to stop lasix gtt and stop free water flushes as well. No other new orders at this time
--- NOTE | 2020-08-14 11:38 | NUR ---
F/u 08/14: Pt tolerating TF at goal GRV WNL. BMx1 08/13 noted per EMR though volume unknown. Pt continues to have extensive bilateral infiltrates per MD note; -4935ml fluid balance past 2 days noted. Receiving electrolyte replacement per protocol. Will continue to monitor. Recommendations: 1) Continuous OGTF using Vital High Protein at 70mL/hr goal; to provide 1680ml volume, 1411ml water, 1680 kcals, and 147g protein. 2) additional water flush 200ml Q4H 3) prealbumin q Saturday/; daily weights 4) routine bowel care; opioid antagonist per electrical mechanical technician Addendum: 08/14/20 at [address] Amended: Links added.
[2020-08-14 11:45] LABS: ALBUMIN 2.1 G/DL (3.4-5.0); ANION GAP 7 (8-16); BLOOD UREA NITROGEN 32 MG/DL (7-18); BUN/CREATININE RATIO 46.4 (6.6-38.0); CALCIUM 8.9 MG/DL (8.5-10.1); CHLORIDE 100 MMOL/L (99-107); CREATININE 0.69 MG/DL (0.40-0.90); GLUCOSE 174 MG/DL (70-104); MAGNESIUM 2.5 MG/DL (1.5-2.4); PHOSPHORUS 3.6 MG/DL (2.3-4.5); POTASSIUM 3.6 MMOL/L (3.5-5.1); SODIUM 137 MMOL/L (135-145); TOTAL CARBON DIOXIDE 29.6 MMOL/L (24-32); eGFR 85 ML/MIN
--- NOTE | 2020-08-14 18:15 | NUR ---
Problems reprioritized. Patient report given, questions answered & plan of care reviewed with Juni SIFUENTES.
[2020-08-14] MEDS: morphine 4 MG/ML inj SYRINge IV PRN (19:53)
--- NOTE | 2020-08-14 20:00 | NUR ---
PATIENT ASSESSED. NEUROLOGICALLY - GERALD 4 MM AND BRISK B/L EYES, 24 HR EEG IN PROGRESS. + CORNEAL REFLEXES, NEGATIVE DOLLS EYES, + GAG AND COUGH. EASILY AGITATED AND COUGHS WITH DISTURBANCES. RASS -4. DECEREBRATES WITH UPPER EXTREMITIES WITH CENTRAL PAIN STIMULUS (OCULAR ) , W/D BRISKLY WITH PAINFUL STIMULI TO LE. VERSED 4 MG/HR. NO VISABLE S/SX SEIZURES. VS INCREASED DURING AND AFTER ASSESSMENT. MEDICATED FOR PAIN PER ORDER
[2020-08-14 20:27] LABS: ALANINE AMINOTRANSFERASE 34 U/L (12-78); ALBUMIN 2.1 G/DL (3.4-5.0); ALBUMIN/GLOBULIN RATIO 0.4 (1.1-1.5); ALKALINE PHOSPHATASE 96 IU/L (46-116); ANION GAP 6 (8-16); ASPARTATE AMINO TRANSFERASE 20 U/L (10-37); BILIRUBIN,TOTAL 0.4 MG/DL (0.1-1.0); BLOOD UREA NITROGEN 30 MG/DL (7-18); BUN/CREATININE RATIO 41.1 (6.6-38.0); CALCIUM 9.2 MG/DL (8.5-10.1); CHLORIDE 102 MMOL/L (99-107); CREATININE 0.73 MG/DL (0.40-0.90); GLUCOSE 177 MG/DL (70-104); MAGNESIUM 2.6 MG/DL (1.5-2.4); PHOSPHORUS 3.7 MG/DL (2.3-4.5); POTASSIUM 3.2 MMOL/L (3.5-5.1); SODIUM 139 MMOL/L (135-145); TOTAL PROTEIN 7.5 G/DL (6.4-8.2); eGFR 80 ML/MIN
[2020-08-15] VITALS (24 sets, daily range): BP systolic 102–161; BP diastolic 47–97
[2020-08-15] MEDS: FOSphenytoin 100mg/2ml inj IV SCH ×3 (00:26→17:03)
[2020-08-15] MEDS: mineral oil/petrolatum ophthal oint EACHEYE SCH ×4 (01:51→20:46)
[2020-08-15] MEDS ORDERED: dextrose 50%-water 50ml dispensing syringe IV PRN ×2 (02:05)
[2020-08-15] MEDS ORDERED: glucagon, human recombinant 1mg kit SUBCUT PRN (02:05)
[2020-08-15] MEDS ORDERED: dextrose ORAL solution 15 GM/59 ML bottle PO PRN ×2 (02:05)
[2020-08-15] MEDS ORDERED: insulin Lispro (HumaLOG) vial - multi-dose SQ SCH (02:05)
[2020-08-15] MEDS ORDERED: MESSAGE TO PHARMACY PO ONE (02:05)
[2020-08-15 02:44] LABS: EOSINOPHILS # (AUTO) 0.4 X10'3 (0-0.9); HEMOGLOBIN 9.5 g/dl (12.0-16.0); MEAN PLATELET VOLUME 8.3 FL (7.4-10.4); WHITE BLOOD COUNT 15.9 X10'3 (4.5-11.0)
[2020-08-15 02:45] LABS: BASOPHILS # (AUTO) 0.1 X10'3 (0-0.2); BASOPHILS % (AUTO) 0.6 % (0-1); EOSINOPHILS % (AUTO) 2.2 % (0-6); HEMATOCRIT 28.5 % (35.0-45.0); LYMPHOCYTES # (AUTO) 1.1 X10'3 (1.1-4.8); LYMPHOCYTES % (AUTO) 6.7 % (21-51); MEAN CORPUSCULAR HEMOGLOBIN 31.4 PG (27.0-31.0); MEAN CORPUSCULAR HGB CONC 33.1 g/dL (33.0-36.5); MEAN CORPUSCULAR VOLUME 94.6 FL (78-98); MONOCYTES # (AUTO) 1.8 X10'3 (0-0.9); MONOCYTES % (AUTO) 11.3 % (2-12); NEUTROPHILS # (AUTO) 12.6 X10'3 (1.8-7.7); NEUTROPHILS % (AUTO) 79.2 % (42-75); PLATELET COUNT 800 X10'3 (140-440); RED BLOOD COUNT 3.01 X10'6 (4.20-5.60); RED CELL DISTRIBUTION WIDTH 14.5 % (11.5-14.5)
[2020-08-15 02:49] LABS: ALANINE AMINOTRANSFERASE 32 U/L (12-78); ALBUMIN 2.1 G/DL (3.4-5.0); ALBUMIN/GLOBULIN RATIO 0.4 (1.1-1.5); ALKALINE PHOSPHATASE 94 IU/L (46-116); ANION GAP 6 (8-16); ASPARTATE AMINO TRANSFERASE 20 U/L (10-37); BILIRUBIN,TOTAL 0.4 MG/DL (0.1-1.0); BLOOD UREA NITROGEN 29 MG/DL (7-18); BUN/CREATININE RATIO 44.6 (6.6-38.0); CALCIUM 8.9 MG/DL (8.5-10.1); CHLORIDE 102 MMOL/L (99-107); CREATININE 0.65 MG/DL (0.40-0.90); GLUCOSE 163 MG/DL (70-104); PHOSPHORUS 3.2 MG/DL (2.3-4.5); POTASSIUM 3.7 MMOL/L (3.5-5.1); PREALBUMIN 19.5 MG/DL (19-36); SODIUM 137 MMOL/L (135-145); TOTAL PROTEIN 7.4 G/DL (6.4-8.2); eGFR > 90 ML/MIN
[2020-08-15] MEDS: ipratropium/albuterol 3ml nebule NEB SCH ×6 (03:14→23:27)
[2020-08-15] MEDS: NORepinephrine 8mg/ 250ml NS 250 ML IV SCH (03:25)
[2020-08-15 03:36] LABS: ABG BASE EXCESS 2.5 mmol/L (-2.0-2.0); ABG HCO3 26.2 mmol/L (22.0-26.0); ABG OXYGEN SATURATION 93.9 % (94-97); ABG PCO2 (T) 38.9 mmHg (32.0-45.0); ABG PO2 (T) 73.8 mmHg (75.0-100.0); ALLEN'S TEST POSITIVE; FCOHb 0.5 % (0.0-3.9); FMetHb 0.3 % (0.0-1.5); FO2Hb 93.1 % (94-97); PEEP 5 cm H2O; RESPIRATORY RATE 16 b/min; TIDAL VOLUME 400 mL
[2020-08-15] MEDS: midazolam 100mg in NS 100 ML INFUSION IV PRN (05:53)
[2020-08-15] MEDS: acetaminophen 325mg/10.15ml oral unit dose solution OGT PRN (05:54)
--- NOTE | 2020-08-15 06:47 | NUR ---
Patient in room ICU 2045. I have received report from Juni SIFUENTES and had the opportunity to ask questions and assume patient care.
[2020-08-15] MEDS: POTASSIUM BICARB 20meq eff tab 20 MEQ TABLET.EFF OGT SCH ×2 (08:00→20:53)
[2020-08-15] MEDS: famotidine/PF 10 mg/ml inj IV SCH ×2 (08:03→20:52)
[2020-08-15] MEDS: heparin, porcine 5000 units/ml vial SQ SCH ×2 (08:03→20:54)
[2020-08-15] MEDS: methylnaltrexone br 12mg/0.6ml inj***SubQ only SQ SCH (08:04)
[2020-08-15] MEDS: fenofibrate 48mg tablet OGT SCH (08:04)
[2020-08-15] MEDS: lactobacillus rhamnosus 10,000 MMU CELLS/CAPSULE OGT SCH ×2 (08:04→20:52)
[2020-08-15] MEDS: LACOSAMIDE 50 MG TABLET PO SCH (08:04)
[2020-08-15] MEDS: scopolamine 1.5mg patch.TD72 TD SCH (08:04)
[2020-08-15] MEDS: docusate sodium 100mg/10ml UD cup OGT SCH ×2 (08:04→20:00)
[2020-08-15] MEDS: levetiracetamNACL 1500mg/100mL 100 ML IV SCH ×2 (08:05→20:51)
[2020-08-15] MEDS: cefepime 1GM/NS ADD-VANTAGE 100 ML IV SCH ×2 (08:05→20:52)
[2020-08-15] MEDS: linezolid 600mg/300ml PREMIX 300 ML IV SCH ×2 (08:05→20:53)
[2020-08-15] MEDS: insulin regular, human U-100 3ml vial - multi-dose SQ SCH ×3 (08:10→20:58)
--- NOTE | 2020-08-15 09:40 | NUR ---
Dr. Shaw by to round on patients, stated to restart lasix gtt high concentration and 10mg/hr dont titrate, also ordered a Dilantin level, informed him of the rising platelet count he stated he will look into it
[2020-08-15] MEDS ORDERED: furosemide inj 100 ML IV SCH (09:45)
[2020-08-15] MEDS: furosemide 1,000 MG in NS 250ml IV soln IV SCH (10:39)
[2020-08-15] MEDS ORDERED: dextrose ORAL solution 15 GM/59 ML bottle OGT PRN ×2 (11:23→11:24)
--- NOTE | 2020-08-15 12:38 | NUR ---
Patients daughter called, i updated her to the situation. Explained to her that the patient is currently receiving a 24hr EEG that will end around 1600 and at that point we will request a stat neuro consult and that will proceed with their recommendations. Explained to her that either I or the Dr. Shaw will call her back once we have results from the 24hr EEG. She was satisfied with the updated and thanked us for the continued care of her mother
--- NOTE | 2020-08-15 18:35 | NUR ---
Problems reprioritized. Patient report given, questions answered & plan of care reviewed with Juni SIFUENTES.
[2020-08-15 18:57] LABS: ALBUMIN 2.2 G/DL (3.4-5.0); ANION GAP 7 (8-16); BLOOD UREA NITROGEN 29 MG/DL (7-18); BUN/CREATININE RATIO 43.9 (6.6-38.0); CALCIUM 9.2 MG/DL (8.5-10.1); CHLORIDE 101 MMOL/L (99-107); CREATININE 0.66 MG/DL (0.40-0.90); GLUCOSE 145 MG/DL (70-104); MAGNESIUM 2.3 MG/DL (1.5-2.4); POTASSIUM 3.2 MMOL/L (3.5-5.1); SODIUM 138 MMOL/L (135-145); TOTAL CARBON DIOXIDE 30.1 MMOL/L (24-32); eGFR 90 ML/MIN
[2020-08-15] MEDS ORDERED: midazolam 100mg in NS 100ml 100 ML IV SCH (20:05)
[2020-08-15] MEDS: potassium Cl 20mEq/100mL bag 100 ML IV PRN (20:52)
[2020-08-15] MEDS: insulin glargine (Lantus) pen - multi-dose SQ SCH (20:59)
[2020-08-15] MEDS: LACOSAMIDE OGT SCH ×2 (21:19→21:22)
[2020-08-15] MEDS: morphine 4 MG/ML inj SYRINge IV PRN (22:06)
[2020-08-16] VITALS (24 sets, daily range): BP systolic 87–173; BP diastolic 43–88
[2020-08-16] MEDS: FOSphenytoin 100mg/2ml inj IV SCH ×4 (00:03→20:41)
[2020-08-16] MEDS: midazolam 100mg in NS 100 ML INFUSION IV PRN ×2 (00:15→22:25)
[2020-08-16] MEDS: mineral oil/petrolatum ophthal oint EACHEYE SCH ×4 (02:28→20:42)
[2020-08-16] MEDS: insulin regular, human U-100 3ml vial - multi-dose SQ SCH ×4 (02:30→20:50)
[2020-08-16 02:40] LABS: EOSINOPHILS # (AUTO) 0.6 X10'3 (0-0.9); LYMPHOCYTES # (AUTO) 1.7 X10'3 (1.1-4.8); NEUTROPHILS # (AUTO) 13.8 X10'3 (1.8-7.7); RED CELL DISTRIBUTION WIDTH 14.6 % (11.5-14.5)
[2020-08-16 02:42] LABS: BASOPHILS # (AUTO) 0.2 X10'3 (0-0.2); EOSINOPHILS % (AUTO) 3.3 % (0-6); HEMATOCRIT 28.9 % (35.0-45.0); HEMOGLOBIN 9.7 g/dl (12.0-16.0); LYMPHOCYTES % (AUTO) 9.2 % (21-51); MEAN CORPUSCULAR HEMOGLOBIN 32.3 PG (27.0-31.0); MEAN CORPUSCULAR HGB CONC 33.8 g/dL (33.0-36.5); MEAN CORPUSCULAR VOLUME 95.8 FL (78-98); MONOCYTES # (AUTO) 1.7 X10'3 (0-0.9); MONOCYTES % (AUTO) 9.6 % (2-12); NEUTROPHILS % (AUTO) 76.9 % (42-75); PLATELET COUNT 883 X10'3 (140-440); RED BLOOD COUNT 3.01 X10'6 (4.20-5.60); WHITE BLOOD COUNT 17.9 X10'3 (4.5-11.0)
[2020-08-16 02:55] LABS: ALANINE AMINOTRANSFERASE 36 U/L (12-78); ALBUMIN 2.2 G/DL (3.4-5.0); ALBUMIN/GLOBULIN RATIO 0.4 (1.1-1.5); ALKALINE PHOSPHATASE 98 IU/L (46-116); ANION GAP 7 (8-16); ASPARTATE AMINO TRANSFERASE 23 U/L (10-37); BILIRUBIN,TOTAL 0.4 MG/DL (0.1-1.0); BLOOD UREA NITROGEN 31 MG/DL (7-18); BUN/CREATININE RATIO 44.9 (6.6-38.0); CALCIUM 9.5 MG/DL (8.5-10.1); CHLORIDE 101 MMOL/L (99-107); CREATININE 0.69 MG/DL (0.40-0.90); GLUCOSE 147 MG/DL (70-104); MAGNESIUM 2.4 MG/DL (1.5-2.4); PHOSPHORUS 4.2 MG/DL (2.3-4.5); POTASSIUM 3.7 MMOL/L (3.5-5.1); SODIUM 139 MMOL/L (135-145); TOTAL CARBON DIOXIDE 31.2 MMOL/L (24-32); TOTAL PROTEIN 7.8 G/DL (6.4-8.2); eGFR 85 ML/MIN
[2020-08-16] MEDS: ipratropium/albuterol 3ml nebule NEB SCH ×6 (02:57→23:17)
[2020-08-16 03:10] LABS: ABG HCO3 30.8 mmol/L (22.0-26.0); ABG OXYGEN SATURATION 96.8 % (94-97); ABG PCO2 (T) 41.8 mmHg (32.0-45.0); ABG PO2 (T) 90.7 mmHg (75.0-100.0); ALLEN'S TEST POSITIVE; FCOHb 0.4 % (0.0-3.9); FMetHb 0.3 % (0.0-1.5); FO2Hb 96.1 % (94-97); PATIENT TEMPERATURE 37.7; PEEP 5 cm H2O; RESPIRATORY RATE 16 b/min; TIDAL VOLUME 400 mL; TOTAL HEMOGLOBIN 10.6 G/dl (12.0-16.0)
--- NOTE | 2020-08-16 06:00 | NUR ---
Patient in room ICU 2045. I have received report from Juni SIFUENTES and had the opportunity to ask questions and assume patient care.
--- NOTE | 2020-08-16 07:26 | NUR ---
Patient in room ICU 2045. I have received report from Juni SIFUENTES and had the opportunity to ask questions and assume patient care.
[2020-08-16] MEDS: cefepime 1GM/NS ADD-VANTAGE 100 ML IV SCH (08:20)
[2020-08-16] MEDS: docusate sodium 100mg/10ml UD cup OGT SCH ×2 (08:20→20:42)
[2020-08-16] MEDS: famotidine/PF 10 mg/ml inj IV SCH ×2 (08:21→20:41)
[2020-08-16] MEDS: lactobacillus rhamnosus 10,000 MMU CELLS/CAPSULE OGT SCH ×2 (08:22→20:43)
[2020-08-16] MEDS: heparin, porcine 5000 units/ml vial SQ SCH ×2 (08:22→20:44)
[2020-08-16] MEDS: fenofibrate 48mg tablet OGT SCH (08:22)
[2020-08-16] MEDS: LACOSAMIDE OGT SCH ×4 (08:22→20:43)
[2020-08-16] MEDS: aspirin 81mg tab.chew OGT SCH (08:22)
[2020-08-16] MEDS: POTASSIUM BICARB 20meq eff tab 20 MEQ TABLET.EFF OGT SCH ×2 (08:22→20:42)
[2020-08-16 09:10] LABS: PLATELET ESTIMATE INCREASED; TOTAL CELLS COUNTED 100
[2020-08-16 09:11] LABS: TOXIC GRANULATION 2+
[2020-08-16 09:12] LABS: POLYCHROMASIA FEW
[2020-08-16] MEDS ORDERED: FOSphenytoin 500mg inj. 1,000 MG in normal saline 100ml IV soln 80 ML IV ONE (09:20)
[2020-08-16] MEDS: levetiracetamNACL 1500mg/100mL 100 ML IV SCH ×2 (09:29→20:42)
--- NOTE | 2020-08-16 11:00 | NUR ---
Rounds note Per Dr. Shaw we will get a follow up Neurology consult from the 24hr EEG, and make adjustments based on those recommendations
[2020-08-16] MEDS: linezolid 600mg/300ml PREMIX 300 ML IV SCH ×2 (11:29→20:42)
[2020-08-16 13:03] LABS: ALBUMIN 2.1 G/DL (3.4-5.0); ANION GAP 7 (8-16); BLOOD UREA NITROGEN 33 MG/DL (7-18); BUN/CREATININE RATIO 50.8 (6.6-38.0); CALCIUM 9.2 MG/DL (8.5-10.1); CHLORIDE 99 MMOL/L (99-107); CREATININE 0.65 MG/DL (0.40-0.90); GLUCOSE 160 MG/DL (70-104); MAGNESIUM 2.3 MG/DL (1.5-2.4); PHOSPHORUS 5.1 MG/DL (2.3-4.5); POTASSIUM 3.9 MMOL/L (3.5-5.1); SODIUM 138 MMOL/L (135-145); eGFR > 90 ML/MIN
--- NOTE | 2020-08-16 13:32 | NUR ---
Had Etcher Apprentice observe patient with me she is having more consistent " seizure twitching" with an increased heart rate, blood pressure and respiratory rate, charge nurse suggested to bolus her with 2mg versed. If that does not settle the patient then to follow up with Dr. Shaw
[2020-08-16] MEDS: cefepime 2g/NS 100ml ADVANTAGE 100 ML IV SCH ×2 (15:30→23:54)
--- NOTE | 2020-08-16 18:04 | NUR ---
Problems reprioritized. Patient report given, questions answered & plan of care reviewed with Juni SIFUENTES.
--- NOTE | 2020-08-16 18:08 | NUR ---
Problems reprioritized. Patient report given, questions answered & plan of care reviewed with Juni SIFUENTES.
[2020-08-16 18:29] LABS: HEMOGLOBIN A1C 6.2 % (4.5-6.2)
[2020-08-16 18:35] LABS: ALBUMIN 2.1 G/DL (3.4-5.0); ANION GAP 6 (8-16); BLOOD UREA NITROGEN 35 MG/DL (7-18); CALCIUM 9.6 MG/DL (8.5-10.1); CHLORIDE 100 MMOL/L (99-107); GLUCOSE 140 MG/DL (70-104); MAGNESIUM 2.3 MG/DL (1.5-2.4); PHOSPHORUS 4.8 MG/DL (2.3-4.5); POTASSIUM 3.5 MMOL/L (3.5-5.1); SODIUM 140 MMOL/L (135-145); TOTAL CARBON DIOXIDE 33.9 MMOL/L (24-32); eGFR 84 ML/MIN
[2020-08-16] MEDS: insulin glargine (Lantus) pen - multi-dose SQ SCH (20:49)
[2020-08-16] MEDS ORDERED: FOSphenytoin 100mg/2ml inj IV SCH (21:00)
[2020-08-17] VITALS (24 sets, daily range): BP systolic 96–164; BP diastolic 44–84
[2020-08-17] MEDS: mineral oil/petrolatum ophthal oint EACHEYE SCH ×4 (02:00→19:21)
[2020-08-17] MEDS: insulin regular, human U-100 3ml vial - multi-dose SQ SCH ×4 (02:03→20:42)
[2020-08-17] MEDS: FOSphenytoin 100mg/2ml inj IV SCH ×4 (02:13→19:17)
[2020-08-17 02:48] LABS: EOSINOPHILS # (AUTO) 0.6 X10'3 (0-0.9); HEMOGLOBIN 9.4 g/dl (12.0-16.0); MEAN PLATELET VOLUME 8.2 FL (7.4-10.4)
[2020-08-17 02:50] LABS: BASOPHILS # (AUTO) 0.2 X10'3 (0-0.2); BASOPHILS % (AUTO) 1.2 % (0-1); EOSINOPHILS % (AUTO) 4.4 % (0-6); HEMATOCRIT 27.3 % (35.0-45.0); LYMPHOCYTES # (AUTO) 1.4 X10'3 (1.1-4.8); LYMPHOCYTES % (AUTO) 10.2 % (21-51); MEAN CORPUSCULAR HEMOGLOBIN 32.7 PG (27.0-31.0); MEAN CORPUSCULAR HGB CONC 34.4 g/dL (33.0-36.5); MEAN CORPUSCULAR VOLUME 95.2 FL (78-98); MONOCYTES # (AUTO) 1.7 X10'3 (0-0.9); MONOCYTES % (AUTO) 12.2 % (2-12); PLATELET COUNT 795 X10'3 (140-440); RED BLOOD COUNT 2.87 X10'6 (4.20-5.60); RED CELL DISTRIBUTION WIDTH 14.6 % (11.5-14.5); WHITE BLOOD COUNT 13.8 X10'3 (4.5-11.0)
[2020-08-17 02:56] LABS: ALANINE AMINOTRANSFERASE 35 U/L (12-78); ALBUMIN 2.1 G/DL (3.4-5.0); ALBUMIN/GLOBULIN RATIO 0.4 (1.1-1.5); ALKALINE PHOSPHATASE 96 IU/L (46-116); ANION GAP 2 (8-16); ASPARTATE AMINO TRANSFERASE 23 U/L (10-37); BILIRUBIN,TOTAL 0.5 MG/DL (0.1-1.0); BLOOD UREA NITROGEN 35 MG/DL (7-18); BUN/CREATININE RATIO 44.9 (6.6-38.0); CALCIUM 9.7 MG/DL (8.5-10.1); CHLORIDE 100 MMOL/L (99-107); CREATININE 0.78 MG/DL (0.40-0.90); GLUCOSE 158 MG/DL (70-104); MAGNESIUM 2.3 MG/DL (1.5-2.4); PHOSPHORUS 4.4 MG/DL (2.3-4.5); POTASSIUM 3.5 MMOL/L (3.5-5.1); SODIUM 138 MMOL/L (135-145); TOTAL CARBON DIOXIDE 35.6 MMOL/L (24-32); TOTAL PROTEIN 7.7 G/DL (6.4-8.2); eGFR 74 ML/MIN
[2020-08-17] MEDS: ipratropium/albuterol 3ml nebule NEB SCH ×5 (03:09→19:49)
[2020-08-17 03:21] LABS: ABG OXYGEN SATURATION 96.1 % (94-97); ABG PCO2 (T) 39.3 mmHg (32.0-45.0); ABG PO2 (T) 82.9 mmHg (75.0-100.0); ALLEN'S TEST POSITIVE; FCOHb 0.3 % (0.0-3.9); FMetHb 0.3 % (0.0-1.5); FO2Hb 95.5 % (94-97); PATIENT TEMPERATURE 37.7; PEEP 5 cm H2O; RESPIRATORY RATE 14 b/min; TIDAL VOLUME 400 mL; TOTAL HEMOGLOBIN 10.5 G/dl (12.0-16.0)
[2020-08-17 04:14] LABS: TOTAL CELLS COUNTED 100
[2020-08-17 04:15] LABS: MICROCYTOSIS 1+; PLATELET ESTIMATE INCREASED
[2020-08-17 04:16] LABS: POLYCHROMASIA 1+; STOMATOCYTES 1+; TOXIC GRANULATION 1+
[2020-08-17 04:17] LABS: LARGE PLATELETS FEW
--- NOTE | 2020-08-17 06:30 | NUR ---
Patient in room ICU 2045. I have received report from rn and had the opportunity to ask questions and assume patient care.
[2020-08-17] MEDS: POTASSIUM BICARB 20meq eff tab 20 MEQ TABLET.EFF OGT SCH ×2 (07:36→19:19)
[2020-08-17] MEDS: LACOSAMIDE OGT SCH ×4 (07:36→19:24)
[2020-08-17] MEDS: docusate sodium 100mg/10ml UD cup OGT SCH ×2 (07:36→19:19)
[2020-08-17] MEDS: methylnaltrexone br 12mg/0.6ml inj***SubQ only SQ SCH (07:37)
[2020-08-17] MEDS: famotidine/PF 10 mg/ml inj IV SCH ×2 (07:39→19:18)
[2020-08-17] MEDS: heparin, porcine 5000 units/ml vial SQ SCH ×2 (07:40→19:20)
[2020-08-17] MEDS: levetiracetamNACL 1500mg/100mL 100 ML IV SCH ×2 (07:43→19:21)
[2020-08-17] MEDS: cefepime 2g/NS 100ml ADVANTAGE 100 ML IV SCH ×2 (07:45→16:03)
[2020-08-17] MEDS: linezolid 600mg/300ml PREMIX 300 ML IV SCH ×2 (07:45→19:22)
[2020-08-17] MEDS: lactobacillus rhamnosus 10,000 MMU CELLS/CAPSULE OGT SCH ×2 (07:47→19:26)
[2020-08-17] MEDS: fenofibrate 48mg tablet OGT SCH (08:46)
[2020-08-17] MEDS: aspirin 81mg tab.chew OGT SCH (08:46)
[2020-08-17 08:57] LABS: ALBUMIN 2.1 G/DL (3.4-5.0); ANION GAP 6 (8-16); BLOOD UREA NITROGEN 36 MG/DL (7-18); BUN/CREATININE RATIO 50.7 (6.6-38.0); CHLORIDE 99 MMOL/L (99-107); CREATININE 0.71 MG/DL (0.40-0.90); GLUCOSE 135 MG/DL (70-104); MAGNESIUM 2.2 MG/DL (1.5-2.4); PHOSPHORUS 4.7 MG/DL (2.3-4.5); POTASSIUM 3.2 MMOL/L (3.5-5.1); SODIUM 140 MMOL/L (135-145); eGFR 83 ML/MIN
[2020-08-17] MEDS: furosemide 1,000 MG in NS 250ml IV soln IV SCH (09:55)
[2020-08-17] MEDS: POTASSIUM BICARB 20meq eff tab 20 MEQ TABLET.EFF OGT PRN (10:24)
[2020-08-17] MEDS: acetaZOLAMIDE 250mg tablet PO SCH ×2 (11:18→16:03)
--- NOTE | 2020-08-17 11:32 | NUR ---
F/u 08/17: Pt tolerating TF at goal GRV WNL. Rectal tube in place w/ 300ml output past 24 hours per EMR. Receiving electrolyte replacement per protocol. Diuresing w/ lasix per MD w/ no free water at this time w/ EN and Na WNL -9.4L fluid balance past 4 days per EMR. Pending family meeting Saturday to determine further care plan per simplex operator. Will monitor for EN tolerance and care plan this admit. Recommendations: 1) Continuous OGTF using Vital High Protein at 70mL/hr goal; to provide 1680ml volume, 1411ml water, 1680 kcals, and 147g protein. 2) additional water flush per MD 3) prealbumin q Saturday/; daily weights 4) routine bowel care; opioid antagonist per simplex operator Addendum: 08/17/20 at [address] Amended: Links added.
[2020-08-17 14:07] LABS: ALBUMIN 1.9 G/DL (3.4-5.0); ANION GAP 4 (8-16); BLOOD UREA NITROGEN 32 MG/DL (7-18); BUN/CREATININE RATIO 50.8 (6.6-38.0); CALCIUM 8.3 MG/DL (8.5-10.1); CHLORIDE 104 MMOL/L (99-107); CREATININE 0.63 MG/DL (0.40-0.90); GLUCOSE 138 MG/DL (70-104); PHOSPHORUS 3.7 MG/DL (2.3-4.5); SODIUM 141 MMOL/L (135-145); TOTAL CARBON DIOXIDE 32.7 MMOL/L (24-32); eGFR > 90 ML/MIN
[2020-08-17] MEDS: potassium Cl 20mEq/100mL bag 100 ML IV PRN ×4 (14:14→20:02)
--- NOTE | 2020-08-17 18:15 | NUR ---
Patient in room ICU 2045. I have received report from Connie SIFUENTES and had the opportunity to ask questions and assume patient care.
[2020-08-17] MEDS: insulin glargine (Lantus) pen - multi-dose SQ SCH (20:43)
[2020-08-17 20:51] LABS: ALBUMIN 2.2 G/DL (3.4-5.0); ANION GAP 6 (8-16); BLOOD UREA NITROGEN 36 MG/DL (7-18); BUN/CREATININE RATIO 42.9 (6.6-38.0); CALCIUM 9.6 MG/DL (8.5-10.1); CHLORIDE 98 MMOL/L (99-107); CREATININE 0.84 MG/DL (0.40-0.90); GLUCOSE 202 MG/DL (70-104); MAGNESIUM 2.3 MG/DL (1.5-2.4); PHOSPHORUS 4.4 MG/DL (2.3-4.5); POTASSIUM 4.2 MMOL/L (3.5-5.1); SODIUM 137 MMOL/L (135-145); TOTAL CARBON DIOXIDE 32.6 MMOL/L (24-32); eGFR 68 ML/MIN
[2020-08-17] MEDS: midazolam 100mg in NS 100 ML INFUSION IV PRN (22:20)
[2020-08-17] MEDS: acetaminophen 325mg/10.15ml oral unit dose solution OGT PRN (23:31)
[2020-08-18] VITALS (24 sets, daily range): BP systolic 107–160; BP diastolic 53–80
[2020-08-18] MEDS: cefepime 2g/NS 100ml ADVANTAGE 100 ML IV SCH ×3 (00:43→15:15)
[2020-08-18] MEDS: acetaZOLAMIDE 250mg tablet PO SCH ×2 (00:44→08:02)
[2020-08-18] MEDS: insulin regular, human U-100 3ml vial - multi-dose SQ SCH ×3 (03:00→20:56)
[2020-08-18] MEDS: mineral oil/petrolatum ophthal oint EACHEYE SCH ×4 (03:02→19:45)
[2020-08-18] MEDS: FOSphenytoin 100mg/2ml inj IV SCH ×4 (03:02→19:43)
[2020-08-18] MEDS: ipratropium/albuterol 3ml nebule NEB SCH ×8 (03:47→22:53)
[2020-08-18 03:49] LABS: ALANINE AMINOTRANSFERASE 32 U/L (12-78); ALBUMIN 2.1 G/DL (3.4-5.0); ALBUMIN/GLOBULIN RATIO 0.4 (1.1-1.5); ALKALINE PHOSPHATASE 97 IU/L (46-116); ANION GAP 4 (8-16); ASPARTATE AMINO TRANSFERASE 21 U/L (10-37); BILIRUBIN,TOTAL 0.4 MG/DL (0.1-1.0); BLOOD UREA NITROGEN 40 MG/DL (7-18); BUN/CREATININE RATIO 46.5 (6.6-38.0); CALCIUM 9.7 MG/DL (8.5-10.1); CHLORIDE 101 MMOL/L (99-107); CREATININE 0.86 MG/DL (0.40-0.90); GLUCOSE 106 MG/DL (70-104); POTASSIUM 3.9 MMOL/L (3.5-5.1); SODIUM 138 MMOL/L (135-145); TOTAL CARBON DIOXIDE 32.7 MMOL/L (24-32); eGFR 66 ML/MIN
[2020-08-18 03:51] LABS: BASOPHILS # (AUTO) 0.1 X10'3 (0-0.2); EOSINOPHILS # (AUTO) 0.6 X10'3 (0-0.9); LYMPHOCYTES # (AUTO) 1.2 X10'3 (1.1-4.8); MAGNESIUM 2.6 MG/DL (1.5-2.4); NEUTROPHILS % (AUTO) 72.5 % (42-75); PHOSPHORUS 4.8 MG/DL (2.3-4.5); RED CELL DISTRIBUTION WIDTH 14.3 % (11.5-14.5); TRIGLYCERIDES 135 MG/DL (20-135)
[2020-08-18 03:53] LABS: EOSINOPHILS % (AUTO) 4.7 % (0-6); HEMOGLOBIN 9.6 g/dl (12.0-16.0); LYMPHOCYTES % (AUTO) 9.3 % (21-51); MEAN CORPUSCULAR HEMOGLOBIN 32.8 PG (27.0-31.0); MEAN CORPUSCULAR HGB CONC 34.1 g/dL (33.0-36.5); MEAN CORPUSCULAR VOLUME 96.1 FL (78-98); MEAN PLATELET VOLUME 8.2 FL (7.4-10.4); MONOCYTES # (AUTO) 1.6 X10'3 (0-0.9); MONOCYTES % (AUTO) 12.5 % (2-12); NEUTROPHILS # (AUTO) 9.5 X10'3 (1.8-7.7); PLATELET COUNT 743 X10'3 (140-440); RED BLOOD COUNT 2.92 X10'6 (4.20-5.60); WHITE BLOOD COUNT 13.2 X10'3 (4.5-11.0)
[2020-08-18 04:01] LABS: ABG BASE EXCESS -0.9 mmol/L (-2.0-2.0); ABG HCO3 21.7 mmol/L (22.0-26.0); ABG OXYGEN SATURATION 95.9 % (94-97); ABG PCO2 (T) 30.3 mmHg (32.0-45.0); ALLEN'S TEST POSITIVE; FCOHb 0.1 % (0.0-3.9); FMetHb 0.1 % (0.0-1.5); FO2Hb 95.7 % (94-97); PATIENT TEMPERATURE 37.8; PEEP 5 cm H2O; RESPIRATORY RATE 12 b/min; TIDAL VOLUME 400 mL; TOTAL HEMOGLOBIN 10.3 G/dl (12.0-16.0)
[2020-08-18 04:59] LABS: PLATELET ESTIMATE INCREASED; TOTAL CELLS COUNTED 100
[2020-08-18 05:00] LABS: STOMATOCYTES FEW
[2020-08-18 05:01] LABS: POLYCHROMASIA FEW
--- NOTE | 2020-08-18 06:26 | NUR ---
Patient in room ICU 2045. I have received report from MARIA Roberts and had the opportunity to ask questions and assume patient care. Patient in bed and in no acute distress.
--- NOTE | 2020-08-18 06:46 | NUR ---
Problems reprioritized. Patient report given, questions answered & plan of care reviewed with Josephine SIFUENTES.
[2020-08-18] MEDS: famotidine/PF 10 mg/ml inj IV SCH ×2 (08:01→19:41)
[2020-08-18] MEDS: fenofibrate 48mg tablet OGT SCH (08:02)
[2020-08-18] MEDS: aspirin 81mg tab.chew OGT SCH (08:02)
[2020-08-18] MEDS: POTASSIUM BICARB 20meq eff tab 20 MEQ TABLET.EFF OGT SCH ×2 (08:02→19:40)
[2020-08-18] MEDS: docusate sodium 100mg/10ml UD cup OGT SCH ×2 (08:02→19:39)
[2020-08-18] MEDS: lactobacillus rhamnosus 10,000 MMU CELLS/CAPSULE OGT SCH ×2 (08:02→19:40)
[2020-08-18] MEDS: levetiracetamNACL 1500mg/100mL 100 ML IV SCH ×2 (08:03→19:37)
[2020-08-18] MEDS: linezolid 600mg/300ml PREMIX 300 ML IV SCH ×2 (08:04→19:39)
[2020-08-18] MEDS: LACOSAMIDE OGT SCH ×4 (08:14→19:39)
[2020-08-18] MEDS: heparin, porcine 5000 units/ml vial SQ SCH ×2 (08:15→19:44)
[2020-08-18 10:56] LABS: ALBUMIN 2.2 G/DL (3.4-5.0); ANION GAP 9 (8-16); BLOOD UREA NITROGEN 42 MG/DL (7-18); BUN/CREATININE RATIO 48.8 (6.6-38.0); CHLORIDE 96 MMOL/L (99-107); CREATININE 0.86 MG/DL (0.40-0.90); GLUCOSE 172 MG/DL (70-104); MAGNESIUM 2.6 MG/DL (1.5-2.4); PHOSPHORUS 5.5 MG/DL (2.3-4.5); POTASSIUM 3.6 MMOL/L (3.5-5.1); SODIUM 136 MMOL/L (135-145); TOTAL CARBON DIOXIDE 31.3 MMOL/L (24-32); eGFR 66 ML/MIN
[2020-08-18] MEDS: scopolamine 1.5mg patch.TD72 TD SCH (11:06)
[2020-08-18] MEDS: acetaZOLAMIDE 250mg tablet OGT SCH (16:15)
[2020-08-18 16:35] LABS: ALBUMIN 2.2 G/DL (3.4-5.0); ANION GAP 8 (8-16); BLOOD UREA NITROGEN 44 MG/DL (7-18); CALCIUM 9.8 MG/DL (8.5-10.1); CHLORIDE 98 MMOL/L (99-107); CREATININE 0.83 MG/DL (0.40-0.90); GLUCOSE 155 MG/DL (70-104); MAGNESIUM 2.7 MG/DL (1.5-2.4); PHOSPHORUS 5.2 MG/DL (2.3-4.5); POTASSIUM 3.3 MMOL/L (3.5-5.1); SODIUM 138 MMOL/L (135-145); TOTAL CARBON DIOXIDE 32.5 MMOL/L (24-32); eGFR 69 ML/MIN
--- NOTE | 2020-08-18 17:37 | NUR ---
Tele-neuro follow up being done.
--- NOTE | 2020-08-18 18:15 | NUR ---
Patient in room ICU 2045. I have received report from Josephine SIFUENTES and had the opportunity to ask questions and assume patient care.
--- NOTE | 2020-08-18 18:36 | NUR ---
Problems reprioritized. Patient report given, questions answered & plan of care reviewed with MARIA Roberts.
[2020-08-18] MEDS: potassium Cl 20mEq/100mL bag 100 ML IV PRN (19:37)
[2020-08-18] MEDS: acetaminophen 325mg/10.15ml oral unit dose solution OGT PRN (19:40)
[2020-08-18 20:47] LABS: ALBUMIN 2.1 G/DL (3.4-5.0); ANION GAP 9 (8-16); BLOOD UREA NITROGEN 46 MG/DL (7-18); BUN/CREATININE RATIO 54.1 (6.6-38.0); CALCIUM 9.4 MG/DL (8.5-10.1); CHLORIDE 98 MMOL/L (99-107); CREATININE 0.85 MG/DL (0.40-0.90); GLUCOSE 151 MG/DL (70-104); MAGNESIUM 2.5 MG/DL (1.5-2.4); PHOSPHORUS 5.1 MG/DL (2.3-4.5); POTASSIUM 3.6 MMOL/L (3.5-5.1); SODIUM 137 MMOL/L (135-145); eGFR 67 ML/MIN
[2020-08-18] MEDS: insulin glargine (Lantus) pen - multi-dose SQ SCH (20:56)
[2020-08-19] VITALS (24 sets, daily range): BP systolic 92–141; BP diastolic 49–73
[2020-08-19] MEDS: acetaZOLAMIDE 250mg tablet OGT SCH ×2 (00:27→07:34)
[2020-08-19] MEDS: cefepime 2g/NS 100ml ADVANTAGE 100 ML IV SCH ×3 (00:27→15:55)
[2020-08-19] MEDS: FOSphenytoin 100mg/2ml inj IV SCH ×4 (02:24→20:18)
[2020-08-19] MEDS: furosemide 1,000 MG in NS 250ml IV soln IV SCH (02:24)
[2020-08-19] MEDS: mineral oil/petrolatum ophthal oint EACHEYE SCH ×4 (02:24→20:39)
[2020-08-19] MEDS: insulin regular, human U-100 3ml vial - multi-dose SQ SCH ×4 (03:19→20:00)
[2020-08-19] MEDS: ipratropium/albuterol 3ml nebule NEB SCH ×6 (03:35→23:32)
[2020-08-19 03:38] LABS: EOSINOPHILS # (AUTO) 0.6 X10'3 (0-0.9); LYMPHOCYTES # (AUTO) 1.2 X10'3 (1.1-4.8); MEAN PLATELET VOLUME 8.3 FL (7.4-10.4); WHITE BLOOD COUNT 14.4 X10'3 (4.5-11.0)
[2020-08-19 03:40] LABS: BASOPHILS # (AUTO) 0.1 X10'3 (0-0.2); BASOPHILS % (AUTO) 0.9 % (0-1); EOSINOPHILS % (AUTO) 4.1 % (0-6); HEMATOCRIT 22.7 % (35.0-45.0); HEMOGLOBIN 7.5 g/dl (12.0-16.0); LYMPHOCYTES % (AUTO) 8.4 % (21-51); MEAN CORPUSCULAR HEMOGLOBIN 31.3 PG (27.0-31.0); MEAN CORPUSCULAR VOLUME 94.7 FL (78-98); MONOCYTES # (AUTO) 1.6 X10'3 (0-0.9); MONOCYTES % (AUTO) 11.1 % (2-12); NEUTROPHILS # (AUTO) 10.9 X10'3 (1.8-7.7); NEUTROPHILS % (AUTO) 75.5 % (42-75); PLATELET COUNT 724 X10'3 (140-440); RED CELL DISTRIBUTION WIDTH 14.1 % (11.5-14.5)
[2020-08-19 03:41] LABS: ALANINE AMINOTRANSFERASE 37 U/L (12-78); ALBUMIN/GLOBULIN RATIO 0.3 (1.1-1.5); ALKALINE PHOSPHATASE 94 IU/L (46-116); ANION GAP 6 (8-16); ASPARTATE AMINO TRANSFERASE 24 U/L (10-37); BILIRUBIN,TOTAL 0.3 MG/DL (0.1-1.0); BLOOD UREA NITROGEN 46 MG/DL (7-18); BUN/CREATININE RATIO 52.9 (6.6-38.0); CALCIUM 9.7 MG/DL (8.5-10.1); CHLORIDE 98 MMOL/L (99-107); CREATININE 0.87 MG/DL (0.40-0.90); GLUCOSE 149 MG/DL (70-104); MAGNESIUM 2.7 MG/DL (1.5-2.4); PHOSPHORUS 4.8 MG/DL (2.3-4.5); POTASSIUM 3.3 MMOL/L (3.5-5.1); SODIUM 137 MMOL/L (135-145); TOTAL CARBON DIOXIDE 32.8 MMOL/L (24-32); eGFR 65 ML/MIN
[2020-08-19 03:50] LABS: ABG BASE EXCESS 4.3 mmol/L (-2.0-2.0); ABG HCO3 27.6 mmol/L (22.0-26.0); ABG OXYGEN SATURATION 97.1 % (94-97); ABG PCO2 (T) 37.5 mmHg (32.0-45.0); ABG PO2 (T) 98.2 mmHg (75.0-100.0); ALLEN'S TEST POSITIVE; FCOHb 0.4 % (0.0-3.9); FMetHb 0.1 % (0.0-1.5); FO2Hb 96.6 % (94-97); PATIENT TEMPERATURE 37.8; PEEP 5 cm H2O; RESPIRATORY RATE 12 b/min; TIDAL VOLUME 400 mL; TOTAL HEMOGLOBIN 10.5 G/dl (12.0-16.0)
[2020-08-19] MEDS: midazolam 100mg in NS 100 ML INFUSION IV PRN (05:08)
--- NOTE | 2020-08-19 06:10 | NUR ---
Patient in room ICU 2045. I have received report from Alejandra SIFUENTES and had the opportunity to ask questions and assume patient care.
--- NOTE | 2020-08-19 06:15 | NUR ---
Problems reprioritized. Patient report given, questions answered & plan of care reviewed with Jose SIFUENTES.
[2020-08-19] MEDS: methylnaltrexone br 12mg/0.6ml inj***SubQ only SQ SCH (07:33)
[2020-08-19] MEDS: lactobacillus rhamnosus 10,000 MMU CELLS/CAPSULE OGT SCH ×2 (07:34→20:28)
[2020-08-19] MEDS: LACOSAMIDE OGT SCH ×4 (07:34→20:26)
[2020-08-19] MEDS: fenofibrate 48mg tablet OGT SCH (07:34)
[2020-08-19] MEDS: POTASSIUM BICARB 20meq eff tab 20 MEQ TABLET.EFF OGT SCH ×2 (07:35→20:26)
[2020-08-19] MEDS: aspirin 81mg tab.chew OGT SCH (07:35)
[2020-08-19] MEDS: famotidine/PF 10 mg/ml inj IV SCH ×2 (07:36→20:33)
[2020-08-19] MEDS: heparin, porcine 5000 units/ml vial SQ SCH ×2 (07:36→20:23)
[2020-08-19] MEDS: levetiracetamNACL 1500mg/100mL 100 ML IV SCH ×2 (07:37→20:34)
[2020-08-19] MEDS: docusate sodium 100mg/10ml UD cup OGT SCH ×2 (07:41→20:28)
[2020-08-19] MEDS: POTASSIUM BICARB 20meq eff tab 20 MEQ TABLET.EFF OGT PRN ×2 (07:41→14:02)
[2020-08-19] MEDS ORDERED: dexmedetomidin/NS 400mcg/100ml 100 ML IV SCH (08:25)
[2020-08-19 08:58] LABS: ALBUMIN 2.1 G/DL (3.4-5.0); ANION GAP 8 (8-16); BLOOD UREA NITROGEN 46 MG/DL (7-18); BUN/CREATININE RATIO 56.8 (6.6-38.0); CALCIUM 9.5 MG/DL (8.5-10.1); CHLORIDE 99 MMOL/L (99-107); CREATININE 0.81 MG/DL (0.40-0.90); GLUCOSE 107 MG/DL (70-104); MAGNESIUM 2.7 MG/DL (1.5-2.4); PHENYTOIN (DILANTIN) 2.9 UG/ML (10.0-20.0); PHOSPHORUS 5.1 MG/DL (2.3-4.5); POTASSIUM 3.9 MMOL/L (3.5-5.1); SODIUM 137 MMOL/L (135-145); TOTAL CARBON DIOXIDE 30.3 MMOL/L (24-32); eGFR 71 ML/MIN
--- NOTE | 2020-08-19 09:28 | NUR ---
0700 svn triaged-RT called to ER
[2020-08-19] MEDS: linezolid 600mg/300ml PREMIX 300 ML IV SCH ×2 (10:02→21:06)
[2020-08-19] MEDS: dexmedetomidine/D5W 100mL 100 ML IV SCH ×2 (12:52→21:10)
[2020-08-19 13:32] LABS: ALBUMIN 2.2 G/DL (3.4-5.0); ANION GAP 7 (8-16); BLOOD UREA NITROGEN 50 MG/DL (7-18); BUN/CREATININE RATIO 56.8 (6.6-38.0); CALCIUM 10.2 MG/DL (8.5-10.1); CHLORIDE 97 MMOL/L (99-107); CREATININE 0.88 MG/DL (0.40-0.90); GLUCOSE 153 MG/DL (70-104); MAGNESIUM 2.7 MG/DL (1.5-2.4); PHOSPHORUS 4.4 MG/DL (2.3-4.5); POTASSIUM 3.3 MMOL/L (3.5-5.1); SODIUM 136 MMOL/L (135-145); TOTAL CARBON DIOXIDE 32.3 MMOL/L (24-32); eGFR 64 ML/MIN
--- NOTE | 2020-08-19 18:22 | NUR ---
Problems reprioritized. Patient report given, questions answered & plan of care reviewed with Valeriano SIFUENTES.
[2020-08-19] MEDS ORDERED: lactobacillus rhamnosus 10,000 MMU CELLS/CAPSULE OGT SCH (20:00)
[2020-08-19] MEDS: insulin glargine (Lantus) pen - multi-dose SQ SCH (20:01)
[2020-08-19 20:17] LABS: ALBUMIN 2.1 G/DL (3.4-5.0); ANION GAP 9 (8-16); BLOOD UREA NITROGEN 54 MG/DL (7-18); BUN/CREATININE RATIO 60.7 (6.6-38.0); CALCIUM 9.9 MG/DL (8.5-10.1); CHLORIDE 97 MMOL/L (99-107); CREATININE 0.89 MG/DL (0.40-0.90); GLUCOSE 132 MG/DL (70-104); MAGNESIUM 2.7 MG/DL (1.5-2.4); PHOSPHORUS 5.6 MG/DL (2.3-4.5); SODIUM 137 MMOL/L (135-145); TOTAL CARBON DIOXIDE 31.3 MMOL/L (24-32); eGFR 64 ML/MIN
[2020-08-20] VITALS (23 sets, daily range): BP systolic 92–180; BP diastolic 43–91
[2020-08-20] MEDS: cefepime 2g/NS 100ml ADVANTAGE 100 ML IV SCH ×3 (01:08→15:02)
[2020-08-20] MEDS: insulin regular, human U-100 3ml vial - multi-dose SQ SCH ×4 (02:48→20:08)
[2020-08-20] MEDS: FOSphenytoin 100mg/2ml inj IV SCH ×4 (02:50→19:40)
[2020-08-20] MEDS: mineral oil/petrolatum ophthal oint EACHEYE SCH ×4 (02:52→20:02)
[2020-08-20] MEDS: ipratropium/albuterol 3ml nebule NEB SCH ×6 (03:05→22:51)
[2020-08-20 03:44] LABS: ALANINE AMINOTRANSFERASE 47 U/L (12-78); ALBUMIN 2.2 G/DL (3.4-5.0); ALBUMIN/GLOBULIN RATIO 0.4 (1.1-1.5); ALKALINE PHOSPHATASE 97 IU/L (46-116); ANION GAP 9 (8-16); ASPARTATE AMINO TRANSFERASE 34 U/L (10-37); BILIRUBIN,TOTAL 0.4 MG/DL (0.1-1.0); BLOOD UREA NITROGEN 56 MG/DL (7-18); BUN/CREATININE RATIO 62.9 (6.6-38.0); CALCIUM 9.7 MG/DL (8.5-10.1); CHLORIDE 98 MMOL/L (99-107); CREATININE 0.89 MG/DL (0.40-0.90); GLUCOSE 145 MG/DL (70-104); PHOSPHORUS 4.8 MG/DL (2.3-4.5); POTASSIUM 3.4 MMOL/L (3.5-5.1); SODIUM 137 MMOL/L (135-145); TOTAL CARBON DIOXIDE 30.1 MMOL/L (24-32); TOTAL PROTEIN 8.4 G/DL (6.4-8.2); eGFR 64 ML/MIN
[2020-08-20 03:49] LABS: BASOPHILS # (AUTO) 0.1 X10'3 (0-0.2); HEMOGLOBIN 9.2 g/dl (12.0-16.0)
[2020-08-20 03:51] LABS: BASOPHILS % (AUTO) 0.9 % (0-1); EOSINOPHILS # (AUTO) 0.7 X10'3 (0-0.9); EOSINOPHILS % (AUTO) 5.2 % (0-6); HEMATOCRIT 27.7 % (35.0-45.0); LYMPHOCYTES # (AUTO) 0.9 X10'3 (1.1-4.8); LYMPHOCYTES % (AUTO) 7.3 % (21-51); MEAN CORPUSCULAR HEMOGLOBIN 31.3 PG (27.0-31.0); MEAN CORPUSCULAR HGB CONC 33.4 g/dL (33.0-36.5); MEAN CORPUSCULAR VOLUME 93.9 FL (78-98); MEAN PLATELET VOLUME 8.7 FL (7.4-10.4); MONOCYTES # (AUTO) 1.5 X10'3 (0-0.9); MONOCYTES % (AUTO) 11.9 % (2-12); NEUTROPHILS # (AUTO) 9.4 X10'3 (1.8-7.7); NEUTROPHILS % (AUTO) 74.7 % (42-75); PLATELET COUNT 611 X10'3 (140-440); RED BLOOD COUNT 2.95 X10'6 (4.20-5.60); RED CELL DISTRIBUTION WIDTH 14.4 % (11.5-14.5); WHITE BLOOD COUNT 12.6 X10'3 (4.5-11.0)
[2020-08-20] MEDS: potassium Cl 20mEq/100mL bag 100 ML IV PRN ×2 (04:33→06:00)
[2020-08-20] MEDS: levetiracetamNACL 1500mg/100mL 100 ML IV SCH ×2 (08:17→19:57)
[2020-08-20] MEDS: furosemide 1,000 MG in NS 250ml IV soln IV SCH (08:17)
[2020-08-20] MEDS: LACOSAMIDE OGT SCH ×4 (08:17→19:50)
[2020-08-20] MEDS: linezolid 600mg/300ml PREMIX 300 ML IV SCH (08:17)
[2020-08-20] MEDS: POTASSIUM BICARB 20meq eff tab 20 MEQ TABLET.EFF OGT SCH ×2 (08:18→19:47)
[2020-08-20] MEDS: famotidine/PF 10 mg/ml inj IV SCH ×2 (08:18→19:57)
[2020-08-20] MEDS: aspirin 81mg tab.chew OGT SCH (08:18)
[2020-08-20] MEDS: lactobacillus rhamnosus 10,000 MMU CELLS/CAPSULE OGT SCH ×2 (08:18→19:51)
[2020-08-20] MEDS: fenofibrate 48mg tablet OGT SCH (08:20)
[2020-08-20] MEDS: docusate sodium 100mg/10ml UD cup OGT SCH ×2 (08:20→20:00)
[2020-08-20] MEDS: heparin, porcine 5000 units/ml vial SQ SCH ×2 (08:20→19:58)
[2020-08-20] MEDS: dexmedetomidine/D5W 100mL 100 ML IV SCH ×2 (09:05→18:00)
[2020-08-20 09:41] LABS: ABG BASE EXCESS 5.4 mmol/L (-2.0-2.0); ABG HCO3 28.7 mmol/L (22.0-26.0); ABG PCO2 (T) 37.7 mmHg (32.0-45.0); ABG PO2 (T) 74.1 mmHg (75.0-100.0); FCOHb 0.4 % (0.0-3.9); FO2Hb 93.6 % (94-97); PATIENT TEMPERATURE 37.5; PEEP 5 cm H2O; RESPIRATORY RATE 12 b/min; TIDAL VOLUME 400 mL; TOTAL HEMOGLOBIN 10.3 G/dl (12.0-16.0)
[2020-08-20 10:11] LABS: ALBUMIN 2.3 G/DL (3.4-5.0); ANION GAP 7 (8-16); BLOOD UREA NITROGEN 59 MG/DL (7-18); BUN/CREATININE RATIO 70.2 (6.6-38.0); CALCIUM 10.1 MG/DL (8.5-10.1); CHLORIDE 99 MMOL/L (99-107); CREATININE 0.84 MG/DL (0.40-0.90); GLUCOSE 162 MG/DL (70-104); PHOSPHORUS 4.8 MG/DL (2.3-4.5); POTASSIUM 4.3 MMOL/L (3.5-5.1); SODIUM 137 MMOL/L (135-145); TOTAL CARBON DIOXIDE 31.5 MMOL/L (24-32); eGFR 68 ML/MIN
--- NOTE | 2020-08-20 14:04 | NUR ---
Reassessment: Pt remains intubated. TF running at goal rate with gastric residuals 40-150 mL over the last 24 hours which is WNL. LBM 08/18, having small and moderate BMs. Pt receiving routine bowel care and opioid antagonist. Will continue to follow closely and make recommendations as appropriate. Recommendations: 1) Continuous OGTF using Vital High Protein at 70mL/hr goal; to provide 1680ml volume, 1411ml water, 1680 kcals, and 147g protein. 2) additional water flush per MD 3) prealbumin q Saturday/; daily weights 4) routine bowel care; opioid antagonist per combustion analyst Addendum: 08/20/20 at [address] Amended: Links added.
[2020-08-20] MEDS: acetaminophen 325mg/10.15ml oral unit dose solution OGT PRN (19:48)
[2020-08-20 20:03] LABS: ALBUMIN 2.2 G/DL (3.4-5.0); ANION GAP 8 (8-16); BLOOD UREA NITROGEN 61 MG/DL (7-18); BUN/CREATININE RATIO 75.3 (6.6-38.0); CALCIUM 9.6 MG/DL (8.5-10.1); CHLORIDE 102 MMOL/L (99-107); CREATININE 0.81 MG/DL (0.40-0.90); GLUCOSE 133 MG/DL (70-104); PHOSPHORUS 4.1 MG/DL (2.3-4.5); POTASSIUM 3.4 MMOL/L (3.5-5.1); SODIUM 141 MMOL/L (135-145); eGFR 71 ML/MIN
[2020-08-20] MEDS: insulin glargine (Lantus) pen - multi-dose SQ SCH (20:10)
[2020-08-21] VITALS (34 sets, daily range): BP systolic 75–160; BP diastolic 35–94
[2020-08-21] MEDS: mineral oil/petrolatum ophthal oint EACHEYE SCH ×4 (02:21→19:42)
[2020-08-21] MEDS: FOSphenytoin 100mg/2ml inj IV SCH ×4 (02:21→20:22)
[2020-08-21] MEDS: insulin regular, human U-100 3ml vial - multi-dose SQ SCH ×4 (02:24→19:53)
[2020-08-21 03:18] LABS: LYMPHOCYTES # (AUTO) 1.3 X10'3 (1.1-4.8); MEAN CORPUSCULAR VOLUME 93.5 FL (78-98); WHITE BLOOD COUNT 13.3 X10'3 (4.5-11.0)
[2020-08-21 03:20] LABS: BASOPHILS # (AUTO) 0.2 X10'3 (0-0.2); BASOPHILS % (AUTO) 1.1 % (0-1); EOSINOPHILS % (AUTO) 7.1 % (0-6); HEMATOCRIT 26.5 % (35.0-45.0); HEMOGLOBIN 8.9 g/dl (12.0-16.0); LYMPHOCYTES % (AUTO) 9.4 % (21-51); MEAN CORPUSCULAR HEMOGLOBIN 31.4 PG (27.0-31.0); MEAN CORPUSCULAR HGB CONC 33.6 g/dL (33.0-36.5); MEAN PLATELET VOLUME 8.6 FL (7.4-10.4); MONOCYTES # (AUTO) 1.4 X10'3 (0-0.9); MONOCYTES % (AUTO) 10.1 % (2-12); NEUTROPHILS # (AUTO) 9.6 X10'3 (1.8-7.7); NEUTROPHILS % (AUTO) 72.3 % (42-75); PLATELET COUNT 608 X10'3 (140-440); RED BLOOD COUNT 2.84 X10'6 (4.20-5.60); RED CELL DISTRIBUTION WIDTH 14.5 % (11.5-14.5)
[2020-08-21] MEDS: ipratropium/albuterol 3ml nebule NEB SCH ×6 (03:25→23:15)
[2020-08-21 03:29] LABS: ALANINE AMINOTRANSFERASE 58 U/L (12-78); ALBUMIN 2.3 G/DL (3.4-5.0); ALBUMIN/GLOBULIN RATIO 0.4 (1.1-1.5); ALKALINE PHOSPHATASE 100 IU/L (46-116); ANION GAP 8 (8-16); ASPARTATE AMINO TRANSFERASE 40 U/L (10-37); BILIRUBIN,TOTAL 0.4 MG/DL (0.1-1.0); BLOOD UREA NITROGEN 62 MG/DL (7-18); BUN/CREATININE RATIO 76.5 (6.6-38.0); CALCIUM 9.9 MG/DL (8.5-10.1); CHLORIDE 102 MMOL/L (99-107); CREATININE 0.81 MG/DL (0.40-0.90); GLUCOSE 142 MG/DL (70-104); PHOSPHORUS 4.3 MG/DL (2.3-4.5); POTASSIUM 3.3 MMOL/L (3.5-5.1); SODIUM 142 MMOL/L (135-145); TOTAL CARBON DIOXIDE 32.3 MMOL/L (24-32); TOTAL PROTEIN 8.6 G/DL (6.4-8.2); eGFR 71 ML/MIN
[2020-08-21] MEDS: potassium Cl 20mEq/100mL bag 100 ML IV PRN ×2 (05:24→07:01)
[2020-08-21] MEDS: dexmedetomidine/D5W 100mL 100 ML IV SCH ×3 (05:35→19:37)
[2020-08-21] MEDS: acetaminophen 325mg/10.15ml oral unit dose solution OGT PRN ×3 (05:37→20:23)
[2020-08-21 07:31] LABS: PLATELET ESTIMATE INCREASED; POLYCHROMASIA 1+; ROULEAUX 1+
[2020-08-21] MEDS: levetiracetamNACL 1500mg/100mL 100 ML IV SCH ×2 (07:55→19:38)
[2020-08-21] MEDS: LACOSAMIDE OGT SCH ×4 (07:55→20:19)
[2020-08-21] MEDS: POTASSIUM BICARB 20meq eff tab 20 MEQ TABLET.EFF OGT SCH ×2 (07:56→19:41)
[2020-08-21] MEDS: aspirin 81mg tab.chew OGT SCH (07:56)
[2020-08-21] MEDS: scopolamine 1.5mg patch.TD72 TD SCH (07:56)
[2020-08-21] MEDS: heparin, porcine 5000 units/ml vial SQ SCH ×2 (07:57→19:41)
[2020-08-21] MEDS: famotidine/PF 10 mg/ml inj IV SCH ×2 (07:57→19:41)
[2020-08-21] MEDS: lactobacillus rhamnosus 10,000 MMU CELLS/CAPSULE OGT SCH ×2 (07:57→19:40)
[2020-08-21] MEDS: fenofibrate 48mg tablet OGT SCH (07:57)
[2020-08-21] MEDS: methylnaltrexone br 12mg/0.6ml inj***SubQ only SQ SCH (08:00)
[2020-08-21] MEDS: docusate sodium 100mg/10ml UD cup OGT SCH ×2 (08:00→19:42)
[2020-08-21] MEDS: furosemide 1,000 MG in NS 250ml IV soln IV SCH (09:55)
[2020-08-21] MEDS ORDERED: tPA-cathflo 2 MG/2 ml IV flush IVF ONE (12:05)
[2020-08-21 12:24] LABS: ALBUMIN 2.2 G/DL (3.4-5.0); ANION GAP 7 (8-16); BLOOD UREA NITROGEN 62 MG/DL (7-18); CHLORIDE 104 MMOL/L (99-107); GLUCOSE 141 MG/DL (70-104); PHOSPHORUS 3.9 MG/DL (2.3-4.5); POTASSIUM 3.9 MMOL/L (3.5-5.1); SODIUM 143 MMOL/L (135-145); TOTAL CARBON DIOXIDE 31.8 MMOL/L (24-32)
[2020-08-21 12:31] LABS: BUN/CREATININE RATIO 79.5 (6.6-38.0); CREATININE 0.78 MG/DL (0.40-0.90); eGFR 74 ML/MIN
[2020-08-21 17:54] LABS: ALBUMIN 2.2 G/DL (3.4-5.0); ANION GAP 5 (8-16); CALCIUM 9.7 MG/DL (8.5-10.1); CHLORIDE 105 MMOL/L (99-107); GLUCOSE 156 MG/DL (70-104); PHOSPHORUS 3.8 MG/DL (2.3-4.5); POTASSIUM 3.5 MMOL/L (3.5-5.1); SODIUM 144 MMOL/L (135-145); TOTAL CARBON DIOXIDE 34.1 MMOL/L (24-32)
[2020-08-21 18:02] LABS: BLOOD UREA NITROGEN 62 MG/DL (7-18); BUN/CREATININE RATIO 72.9 (6.6-38.0); CREATININE 0.85 MG/DL (0.40-0.90); eGFR 67 ML/MIN
[2020-08-21] MEDS: insulin glargine (Lantus) pen - multi-dose SQ SCH (19:51)
[2020-08-21 22:13] LABS: ALBUMIN 2.1 G/DL (3.4-5.0); ANION GAP 7 (8-16); BLOOD UREA NITROGEN 58 MG/DL (7-18); CALCIUM 9.5 MG/DL (8.5-10.1); CHLORIDE 105 MMOL/L (99-107); CREATININE 0.92 MG/DL (0.40-0.90); GLUCOSE 165 MG/DL (70-104); PHOSPHORUS 4.1 MG/DL (2.3-4.5); POTASSIUM 4.1 MMOL/L (3.5-5.1); SODIUM 145 MMOL/L (135-145); TOTAL CARBON DIOXIDE 33.2 MMOL/L (24-32); eGFR 61 ML/MIN
[2020-08-22] VITALS (31 sets, daily range): BP systolic 94–160; BP diastolic 45–100
[2020-08-22] MEDS: mineral oil/petrolatum ophthal oint EACHEYE SCH ×4 (02:12→20:48)
[2020-08-22] MEDS: insulin regular, human U-100 3ml vial - multi-dose SQ SCH ×4 (02:25→19:58)
[2020-08-22] MEDS: FOSphenytoin 100mg/2ml inj IV SCH ×4 (02:29→22:03)
[2020-08-22 02:53] LABS: BASOPHILS # (AUTO) 0.1 X10'3 (0-0.2); EOSINOPHILS # (AUTO) 0.9 X10'3 (0-0.9); EOSINOPHILS % (AUTO) 6.2 % (0-6); HEMATOCRIT 26.4 % (35.0-45.0); HEMOGLOBIN 8.6 g/dl (12.0-16.0); LYMPHOCYTES # (AUTO) 1.9 X10'3 (1.1-4.8); LYMPHOCYTES % (AUTO) 12.9 % (21-51); MEAN CORPUSCULAR HEMOGLOBIN 30.6 PG (27.0-31.0); MEAN CORPUSCULAR HGB CONC 32.7 g/dL (33.0-36.5); MEAN CORPUSCULAR VOLUME 93.7 FL (78-98); MEAN PLATELET VOLUME 8.5 FL (7.4-10.4); MONOCYTES # (AUTO) 1.4 X10'3 (0-0.9); MONOCYTES % (AUTO) 9.4 % (2-12); NEUTROPHILS # (AUTO) 10.3 X10'3 (1.8-7.7); NEUTROPHILS % (AUTO) 70.5 % (42-75); PLATELET COUNT 574 X10'3 (140-440); RED BLOOD COUNT 2.82 X10'6 (4.20-5.60); RED CELL DISTRIBUTION WIDTH 14.5 % (11.5-14.5); WHITE BLOOD COUNT 14.6 X10'3 (4.5-11.0)
[2020-08-22 03:10] LABS: ALBUMIN 2.3 G/DL (3.4-5.0); ANION GAP 8 (8-16); BLOOD UREA NITROGEN 56 MG/DL (7-18); BUN/CREATININE RATIO 68.3 (6.6-38.0); CALCIUM 9.7 MG/DL (8.5-10.1); CHLORIDE 105 MMOL/L (99-107); CREATININE 0.82 MG/DL (0.40-0.90); GLUCOSE 166 MG/DL (70-104); PHOSPHORUS 4.3 MG/DL (2.3-4.5); POTASSIUM 3.2 MMOL/L (3.5-5.1); SODIUM 146 MMOL/L (135-145); TOTAL CARBON DIOXIDE 33.3 MMOL/L (24-32); eGFR 70 ML/MIN
[2020-08-22] MEDS: potassium Cl 20mEq/100mL bag 100 ML IV PRN ×2 (03:34→05:13)
[2020-08-22] MEDS: ipratropium/albuterol 3ml nebule NEB SCH ×6 (03:42→23:02)
[2020-08-22 03:56] LABS: ABG BASE EXCESS 9.3 mmol/L (-2.0-2.0); ABG HCO3 33.2 mmol/L (22.0-26.0); ABG OXYGEN SATURATION 96.2 % (94-97); ABG PCO2 (T) 44.3 mmHg (32.0-45.0); ABG PO2 (T) 88.4 mmHg (75.0-100.0); ALLEN'S TEST POSITIVE; FCOHb 0.2 % (0.0-3.9); FMetHb 0.3 % (0.0-1.5); FO2Hb 95.7 % (94-97); PATIENT TEMPERATURE 37.9; PEEP 5 cm H2O; RESPIRATORY RATE 12 b/min; TIDAL VOLUME 400 mL; TOTAL HEMOGLOBIN 10.3 G/dl (12.0-16.0)
--- NOTE | 2020-08-22 06:38 | NUR ---
Patient in room ICU 2045. I have received report from MARIA Feldman and had the opportunity to ask questions and assume patient care.
--- NOTE | 2020-08-22 06:38 | NUR ---
Problems reprioritized. Patient report given, questions answered & plan of care reviewed.
[2020-08-22] MEDS: LACOSAMIDE OGT SCH ×2 (07:57→07:58)
[2020-08-22] MEDS: levetiracetamNACL 1500mg/100mL 100 ML IV SCH (07:57)
[2020-08-22] MEDS: furosemide 1,000 MG in NS 250ml IV soln IV SCH (07:57)
[2020-08-22] MEDS: fenofibrate 48mg tablet OGT SCH (07:58)
[2020-08-22] MEDS: famotidine/PF 10 mg/ml inj IV SCH ×2 (07:58→20:47)
[2020-08-22] MEDS: lactobacillus rhamnosus 10,000 MMU CELLS/CAPSULE OGT SCH ×2 (07:58→20:46)
[2020-08-22] MEDS: aspirin 81mg tab.chew OGT SCH (07:58)
[2020-08-22] MEDS: docusate sodium 100mg/10ml UD cup OGT SCH ×2 (07:59→22:00)
[2020-08-22] MEDS: heparin, porcine 5000 units/ml vial SQ SCH ×2 (07:59→20:48)
[2020-08-22] MEDS: POTASSIUM BICARB 20meq eff tab 20 MEQ TABLET.EFF OGT SCH ×2 (08:10→20:45)
[2020-08-22 08:51] LABS: POTASSIUM 3.7 MMOL/L (3.5-5.1)
--- NOTE | 2020-08-22 09:53 | NUR ---
Neurotele requested per Dr Cristina
[2020-08-22 10:16] LABS: ALANINE AMINOTRANSFERASE 84 U/L (12-78); ALKALINE PHOSPHATASE 96 IU/L (46-116); ANION GAP 9 (8-16); ASPARTATE AMINO TRANSFERASE 56 U/L (10-37); BILIRUBIN,TOTAL 0.3 MG/DL (0.1-1.0); CHLORIDE 105 MMOL/L (99-107); SODIUM 146 MMOL/L (135-145); TOTAL CARBON DIOXIDE 32.3 MMOL/L (24-32); TOTAL PROTEIN 8.4 G/DL (6.4-8.2)
[2020-08-22 10:23] LABS: ALBUMIN 2.3 G/DL (3.4-5.0); ALBUMIN/GLOBULIN RATIO 0.4 (1.1-1.5); BLOOD UREA NITROGEN 55 MG/DL (7-18); BUN/CREATININE RATIO 73.3 (6.6-38.0); CALCIUM 9.8 MG/DL (8.5-10.1); CREATININE 0.75 MG/DL (0.40-0.90); GLUCOSE 169 MG/DL (70-104); eGFR 78 ML/MIN
--- NOTE | 2020-08-22 12:08 | NUR ---
Neuro tele completed, orders placed as follows per Dr Shaw on recommendations from neurology- Increase doses of Keppra and Vimpat. Continuous EEG monitoring, place back on sedation with Versed.
[2020-08-22] MEDS: midazolam 100mg in NS 100ml 100 ML IV SCH (12:21)
--- NOTE | 2020-08-22 13:17 | NUR ---
Call from daughter Ritu indicating the family is ready to make end of life decisions and would like to do so tomorrow with the md and allow to say goodbye over phone or video chat. Dr Shaw and corrections caseworker Susan made aware and will arrange. EEg cancelled
[2020-08-22] MEDS: dexmedetomidine/D5W 100mL 100 ML IV SCH (14:16)
--- NOTE | 2020-08-22 17:01 | NUR ---
Rec call from Manolo with donor network that he rec verbal authorization from patient daughter Ritu for patient organ donation. States he will meet with daughter and to obtain final consent and approval.
--- NOTE | 2020-08-22 18:15 | NUR ---
Patient in room ICU 2045. I have received report from Deb SIFUENTES and had the opportunity to ask questions and assume patient care. Pt remains orally intubated #8ETT @21cm teeth.ON AC PRVC mode BUR 12 FIO2 35% +5 PEEP.Observed RR 14 ,observed TV 388. O2 saturation is 96-97%. On IV sedation versed @ 2mg/hr. PICC line right upper arm. OGT with tube feedings Vital HP @ goal rate 70ml/hr. Rectal bag drains dark brown liquid stool. Almaguer cath drains clear yellow urine. HOB elevated 30 degrees. Safety precautions observed. Bed brakes on,side rails up x2, seizure/aspiration precautions in place. Pt is in direct view & rounds are frequent.
[2020-08-22] MEDS: insulin glargine (Lantus) pen - multi-dose SQ SCH (19:56)
--- NOTE | 2020-08-22 20:00 | NUR ---
Pupils are equal & reactive to light @ 3mm bilaterally. Facial grimaces to deep stimuli. Cough & gag reflex present. Shrugs shoulders to painful stimuli.Cough is strong. Large amounts of oral secretions suctioned. Moderate amounts of cloudy thin secretions from ETT. Remains on versed drip at 2mg/hr. O2 saturation is 97% vent mode unchanged A/C PRVC TV 400 rate 12 +5 PEEP Observed TV 508, RR 12.
[2020-08-22] MEDS: NORMAL SALINE IV SCH (20:35)
[2020-08-22] MEDS: LEVETIRACETAM IV SCH (20:35)
[2020-08-22] MEDS: LACOSAMIDE PO SCH (20:46)
[2020-08-23] VITALS (26 sets, daily range): BP systolic 80–148; BP diastolic 41–75
--- NOTE | 2020-08-23 | NUR ---
Neuro status unchanged. Pupils reactive to light. Facial grimaces & shrugs shoulders to painful stimuli. Cough & gag reflex is present.
[2020-08-23] MEDS: dexmedetomidine/D5W 100mL 100 ML IV SCH ×3 (01:20→23:28)
[2020-08-23] MEDS: insulin regular, human U-100 3ml vial - multi-dose SQ SCH ×2 (02:03→08:35)
[2020-08-23] MEDS: mineral oil/petrolatum ophthal oint EACHEYE SCH ×4 (02:04→22:50)
[2020-08-23] MEDS: ipratropium/albuterol 3ml nebule NEB SCH ×6 (02:48→22:17)
[2020-08-23] MEDS: FOSphenytoin 100mg/2ml inj IV SCH ×4 (03:03→22:47)
[2020-08-23 03:22] LABS: BASOPHILS # (AUTO) 0.1 X10'3 (0-0.2); BASOPHILS % (AUTO) 0.8 % (0-1); EOSINOPHILS # (AUTO) 0.9 X10'3 (0-0.9); EOSINOPHILS % (AUTO) 6.4 % (0-6); HEMATOCRIT 24.2 % (35.0-45.0); LYMPHOCYTES # (AUTO) 1.9 X10'3 (1.1-4.8); MEAN CORPUSCULAR HEMOGLOBIN 31.2 PG (27.0-31.0); MEAN CORPUSCULAR VOLUME 94.6 FL (78-98); MEAN PLATELET VOLUME 8.8 FL (7.4-10.4); MONOCYTES # (AUTO) 1.1 X10'3 (0-0.9); MONOCYTES % (AUTO) 7.5 % (2-12); NEUTROPHILS # (AUTO) 10.7 X10'3 (1.8-7.7); NEUTROPHILS % (AUTO) 72.3 % (42-75); PLATELET COUNT 502 X10'3 (140-440); RED BLOOD COUNT 2.55 X10'6 (4.20-5.60); RED CELL DISTRIBUTION WIDTH 14.5 % (11.5-14.5); WHITE BLOOD COUNT 14.8 X10'3 (4.5-11.0)
[2020-08-23 03:41] LABS: ALANINE AMINOTRANSFERASE 90 U/L (12-78); ALBUMIN 2.1 G/DL (3.4-5.0); ALBUMIN/GLOBULIN RATIO 0.4 (1.1-1.5); ALKALINE PHOSPHATASE 99 IU/L (46-116); ANION GAP 4 (8-16); ASPARTATE AMINO TRANSFERASE 57 U/L (10-37); BILIRUBIN,TOTAL 0.2 MG/DL (0.1-1.0); BLOOD UREA NITROGEN 56 MG/DL (7-18); BUN/CREATININE RATIO 76.7 (6.6-38.0); CALCIUM 10.2 MG/DL (8.5-10.1); CHLORIDE 107 MMOL/L (99-107); CREATININE 0.73 MG/DL (0.40-0.90); GLUCOSE 132 MG/DL (70-104); PHOSPHORUS 4.7 MG/DL (2.3-4.5); POTASSIUM 3.9 MMOL/L (3.5-5.1); SODIUM 146 MMOL/L (135-145); TOTAL CARBON DIOXIDE 34.9 MMOL/L (24-32); TOTAL PROTEIN 7.8 G/DL (6.4-8.2); eGFR 80 ML/MIN
--- NOTE | 2020-08-23 06:14 | NUR ---
Problems reprioritized. Patient report given, questions answered & plan of care reviewed with Deb SIFUENTES.
--- NOTE | 2020-08-23 06:35 | NUR ---
Patient in room ICU 2045. I have received report from MARIA Feldman and had the opportunity to ask questions and assume patient care.
[2020-08-23 07:34] LABS: MAGNESIUM 2.7 MG/DL (1.5-2.4)
[2020-08-23] MEDS: methylnaltrexone br 12mg/0.6ml inj***SubQ only SQ SCH (08:00)
[2020-08-23] MEDS: docusate sodium 100mg/10ml UD cup OGT SCH ×2 (08:00→19:08)
[2020-08-23] MEDS: lactobacillus rhamnosus 10,000 MMU CELLS/CAPSULE OGT SCH ×2 (08:19→19:15)
[2020-08-23] MEDS: aspirin 81mg tab.chew OGT SCH (08:19)
[2020-08-23] MEDS: famotidine/PF 10 mg/ml inj IV SCH ×2 (08:20→19:08)
[2020-08-23] MEDS: LACOSAMIDE PO SCH ×2 (08:20→19:08)
[2020-08-23] MEDS: heparin, porcine 5000 units/ml vial SQ SCH ×2 (08:20→19:10)
[2020-08-23] MEDS: NORMAL SALINE IV SCH ×2 (08:21→22:47)
[2020-08-23] MEDS: LEVETIRACETAM IV SCH ×2 (08:21→22:47)
[2020-08-23] MEDS: POTASSIUM BICARB 20meq eff tab 20 MEQ TABLET.EFF OGT SCH ×2 (08:24→19:28)
[2020-08-23 08:35] LABS: PHENYTOIN (DILANTIN) 2.7 UG/ML (10.0-20.0)
[2020-08-23] MEDS: fenofibrate 48mg tablet OGT SCH (08:36)
--- NOTE | 2020-08-23 10:59 | NUR ---
F/u 08/23: Pt tolerating TF at goal GRV WNL. Rectal tube 100ml output past 24 hours per EMR. Pending family meeting to discuss long-term prognosis today per MD. Will continue to monitor for TF tolerance. Recommendations: 1) Continuous OGTF using Vital High Protein at 70mL/hr goal; to provide 1680ml volume, 1411ml water, 1680 kcals, and 147g protein. 2) additional water flush per MD 3) prealbumin q Saturday/; daily weights 4) routine bowel care; opioid antagonist per military source operations officer Addendum: 08/23/20 at [address] Amended: Links added.
[2020-08-23] MEDS ORDERED: heparin 10,000 units/1 ML INJ IV PRN (16:15)
[2020-08-23 16:24] LABS: BASOPHILS # (AUTO) 0.2 X10'3 (0-0.2); BASOPHILS % (AUTO) 1.3 % (0-1); EOSINOPHILS % (AUTO) 7.5 % (0-6); HEMATOCRIT 23.6 % (35.0-45.0); HEMOGLOBIN 7.7 g/dl (12.0-16.0); LYMPHOCYTES # (AUTO) 2.1 X10'3 (1.1-4.8); LYMPHOCYTES % (AUTO) 15.7 % (21-51); MEAN CORPUSCULAR HEMOGLOBIN 30.8 PG (27.0-31.0); MEAN CORPUSCULAR HGB CONC 32.7 g/dL (33.0-36.5); MEAN CORPUSCULAR VOLUME 94.3 FL (78-98); MEAN PLATELET VOLUME 8.6 FL (7.4-10.4); MONOCYTES # (AUTO) 1.1 X10'3 (0-0.9); MONOCYTES % (AUTO) 8.4 % (2-12); NEUTROPHILS % (AUTO) 67.1 % (42-75); PLATELET COUNT 539 X10'3 (140-440); RED CELL DISTRIBUTION WIDTH 14.5 % (11.5-14.5); WHITE BLOOD COUNT 13.4 X10'3 (4.5-11.0)
[2020-08-23 16:33] LABS: PARTIAL THROMBOPLASTIN TIME 23 SECONDS (22-32)
[2020-08-23 16:36] LABS: ALANINE AMINOTRANSFERASE 96 U/L (12-78); ALBUMIN 2.2 G/DL (3.4-5.0); ALBUMIN/GLOBULIN RATIO 0.4 (1.1-1.5); ALKALINE PHOSPHATASE 120 IU/L (46-116); ANION GAP 7 (8-16); ASPARTATE AMINO TRANSFERASE 52 U/L (10-37); BILIRUBIN,DIRECT 0.1 MG/DL (0-0.3); BILIRUBIN,TOTAL 0.2 MG/DL (0.1-1.0); BLOOD UREA NITROGEN 49 MG/DL (7-18); BUN/CREATININE RATIO 75.4 (6.6-38.0); CALCIUM 9.9 MG/DL (8.5-10.1); CHLORIDE 108 MMOL/L (99-107); CREATININE 0.65 MG/DL (0.40-0.90); GLUCOSE 131 MG/DL (70-104); MAGNESIUM 2.7 MG/DL (1.5-2.4); POTASSIUM 4.4 MMOL/L (3.5-5.1); SODIUM 149 MMOL/L (135-145); TOTAL CARBON DIOXIDE 34.2 MMOL/L (24-32); TOTAL PROTEIN 7.7 G/DL (6.4-8.2); eGFR > 90 ML/MIN
[2020-08-23 16:51] LABS: ABG BASE EXCESS 9.8 mmol/L (-2.0-2.0); ABG HCO3 33.5 mmol/L (22.0-26.0); ABG OXYGEN SATURATION 97.2 % (94-97); ABG PCO2 (T) 43.9 mmHg (32.0-45.0); ABG PO2 (T) 102.7 mmHg (75.0-100.0); ALLEN'S TEST POSITIVE; FCOHb 0.3 % (0.0-3.9); FO2Hb 96.9 % (94-97); PATIENT TEMPERATURE 38.2; PEEP 5 cm H2O; RESPIRATORY RATE 12 b/min; TIDAL VOLUME 441 mL; TOTAL HEMOGLOBIN 10.8 G/dl (12.0-16.0)
[2020-08-23 17:41] LABS: CLARITY,URINE CLOUDY (Clear); COLOR,URINE YELLOW (Yellow); GLUCOSE, URINE NEGATIVE (Neg); KETONES,URINE NEGATIVE (Neg); LEUKOCYTE ESTERASE ,URINE SMALL (Neg); NITRITES, URINE NEGATIVE (Neg); OCCULT BLOOD,URINE LARGE (Neg); PH,URINE 7.5 (4.8-8.0); PROTEIN,URINE TRACE mg/dl (Neg); UROBILINOGEN,URINE 0.2 E.U/dL (0.2-1.0)
[2020-08-23 17:47] LABS: UA COLLECTION TYPE NON-SPECIFIED
[2020-08-23 17:50] LABS: SQUAMOUS EPITHELIAL CELL,UR FEW /LPF (FEW); TRANSITIONAL EPI CELLS,URINE FEW /HPF
[2020-08-23 17:53] LABS: RBC,URINE TNTC /HPF (0-2)
[2020-08-23 17:59] LABS: AMORPHOUS PHOSPHATES 3+
[2020-08-23 18:00] LABS: BACTERIA,URINE FEW /HPF (Neg); YEAST FEW /HPF (NEGATIVE)
--- NOTE | 2020-08-23 18:10 | NUR ---
Patient in room ICU 2045. I have received report from Deb SIFUENTES and had the opportunity to ask questions and assume patient care. Donor network is involved in management, orders observed. Pt to receive 1 unit PRBC. Tube feedings off. Pt is intubated #8ETT @ 21CM teeth. Vent mode is A/C PRVC FIO2 35% TV 400 rate 12 +5 PEEP PS 10. Observed TV 450 RR 14. Oxygen saturation is 96%. Lungs with coarse breath sounds anterior chest, diminished lateral bases bilaterally. OGT is flushed & clamped. PICC line to right upper arm. Versed infusing. WAYNE, pt does close eyes tight when pupils are checked.Gag & cough reflex present. Facial grimaces and shrugs shoulders to deep stimuli. Rectal tube drains dark brown liquid stool, castillo drains clear yellow urine. Pt is DNR comfort care status managed by staff /donor network orders at this time. had opportunity to do face time with patient today with day shift RN.
[2020-08-23] MEDS: piperacillin/tazo 3.375gm/50ml 50 ML IV SCH (18:39)
[2020-08-23] MEDS: acetaminophen 325mg/10.15ml oral unit dose solution OGT PRN (19:08)
[2020-08-23 19:20] LABS: ABG BASE EXCESS 8.4 mmol/L (-2.0-2.0); ABG HCO3 32.1 mmol/L (22.0-26.0); ABG OXYGEN SATURATION 97.2 % (94-97); ABG PCO2 (T) 43.4 mmHg (32.0-45.0); ABG PO2 (T) 98.1 mmHg (75.0-100.0); ALLEN'S TEST POSITIVE; FCOHb 0.6 % (0.0-3.9); FMetHb 0.3 % (0.0-1.5); FO2Hb 96.3 % (94-97); PATIENT TEMPERATURE 38.2; PEEP 5 cm H2O; RESPIRATORY RATE 12 b/min; TIDAL VOLUME 400 mL; TOTAL HEMOGLOBIN 7.5 G/dl (12.0-16.0)
--- NOTE | 2020-08-23 19:30 | NUR ---
Call placed to donor network regarding insulin coverage. Tube feedings off per donor network orders. Awaiting return call.
[2020-08-23] MEDS: insulin glargine (Lantus) pen - multi-dose SQ SCH (22:06)
[2020-08-23 22:52] LABS: BASOPHILS # (AUTO) 0.1 X10'3 (0-0.2); BASOPHILS % (AUTO) 0.9 % (0-1); EOSINOPHILS # (AUTO) 0.9 X10'3 (0-0.9); EOSINOPHILS % (AUTO) 8.1 % (0-6); HEMATOCRIT 25.1 % (35.0-45.0); HEMOGLOBIN 8.4 g/dl (12.0-16.0); LYMPHOCYTES # (AUTO) 1.8 X10'3 (1.1-4.8); LYMPHOCYTES % (AUTO) 16.3 % (21-51); MEAN CORPUSCULAR HEMOGLOBIN 31.1 PG (27.0-31.0); MEAN CORPUSCULAR HGB CONC 33.3 g/dL (33.0-36.5); MEAN CORPUSCULAR VOLUME 93.5 FL (78-98); MEAN PLATELET VOLUME 8.2 FL (7.4-10.4); MONOCYTES # (AUTO) 0.7 X10'3 (0-0.9); MONOCYTES % (AUTO) 6.5 % (2-12); NEUTROPHILS # (AUTO) 7.7 X10'3 (1.8-7.7); NEUTROPHILS % (AUTO) 68.2 % (42-75); PLATELET COUNT 443 X10'3 (140-440); RED BLOOD COUNT 2.69 X10'6 (4.20-5.60); RED CELL DISTRIBUTION WIDTH 14.9 % (11.5-14.5); WHITE BLOOD COUNT 11.3 X10'3 (4.5-11.0)
[2020-08-23 23:05] LABS: PARTIAL THROMBOPLASTIN TIME 25 SECONDS (22-32)
[2020-08-23 23:10] LABS: ALANINE AMINOTRANSFERASE 93 U/L (12-78); ALBUMIN 2.1 G/DL (3.4-5.0); ALBUMIN/GLOBULIN RATIO 0.4 (1.1-1.5); ALKALINE PHOSPHATASE 101 IU/L (46-116); ANION GAP 10 (8-16); ASPARTATE AMINO TRANSFERASE 53 U/L (10-37); BILIRUBIN,DIRECT 0.1 MG/DL (0-0.3); BILIRUBIN,TOTAL 0.2 MG/DL (0.1-1.0); BLOOD UREA NITROGEN 43 MG/DL (7-18); BUN/CREATININE RATIO 57.3 (6.6-38.0); CALCIUM 9.5 MG/DL (8.5-10.1); CHLORIDE 109 MMOL/L (99-107); CREATININE 0.75 MG/DL (0.40-0.90); GLUCOSE 137 MG/DL (70-104); MAGNESIUM 2.6 MG/DL (1.5-2.4); POTASSIUM 4.1 MMOL/L (3.5-5.1); SODIUM 150 MMOL/L (135-145); TOTAL CARBON DIOXIDE 31.1 MMOL/L (24-32); TOTAL PROTEIN 7.3 G/DL (6.4-8.2); eGFR 78 ML/MIN
[2020-08-23] MEDS: midazolam 100mg in NS 100ml 100 ML IV SCH (23:45)
--- NOTE | 2020-08-23 23:50 | NUR ---
Donor network contact Odell @ bedside. Suggestion to stop heparin 5,000Units SQ as pt will be receiving larger dose in near future. Also not further ABG or chest xrays at this time for donor network work up.
[2020-08-24] VITALS (24 sets, daily range): BP systolic 85–170; BP diastolic 39–98
[2020-08-24 00:36] LABS: CLARITY,URINE SLIGHTLY CLOUDY (Clear); COLOR,URINE YELLOW (Yellow); GLUCOSE, URINE NEGATIVE (Neg); KETONES,URINE NEGATIVE (Neg); LEUKOCYTE ESTERASE ,URINE SMALL (Neg); NITRITES, URINE NEGATIVE (Neg); OCCULT BLOOD,URINE LARGE (Neg); PH,URINE 7.5 (4.8-8.0); PROTEIN,URINE TRACE mg/dl (Neg); UROBILINOGEN,URINE 0.2 E.U/dL (0.2-1.0)
[2020-08-24 00:37] LABS: UA COLLECTION TYPE FOLEY CATH
[2020-08-24 00:41] LABS: BACTERIA,URINE 1+ /HPF (Neg); RBC,URINE 20-50 /HPF (0-2); SQUAMOUS EPITHELIAL CELL,UR NONE SEEN /LPF (FEW); WBC,URINE 0-4 /HPF (0-4); YEAST MODERATE /HPF (NEGATIVE)
[2020-08-24 00:42] LABS: COARSE GRANULAR CAST 0-3 /LPF (NEGATIVE)
[2020-08-24] MEDS: ipratropium/albuterol 3ml nebule NEB SCH (02:12)
[2020-08-24] MEDS: mineral oil/petrolatum ophthal oint EACHEYE SCH ×4 (02:55→19:44)
[2020-08-24] MEDS: piperacillin/tazo 3.375gm/50ml 50 ML IV SCH ×4 (02:58→23:49)
[2020-08-24] MEDS: FOSphenytoin 100mg/2ml inj IV SCH ×4 (03:00→19:41)
[2020-08-24 04:22] LABS: HEMOGLOBIN 8.5 g/dl (12.0-16.0); LYMPHOCYTES # (AUTO) 1.5 X10'3 (1.1-4.8); MEAN PLATELET VOLUME 8.2 FL (7.4-10.4); MONOCYTES # (AUTO) 0.9 X10'3 (0-0.9); NEUTROPHILS # (AUTO) 9.6 X10'3 (1.8-7.7); RED CELL DISTRIBUTION WIDTH 15.1 % (11.5-14.5)
[2020-08-24 04:24] LABS: BASOPHILS # (AUTO) 0.1 X10'3 (0-0.2); BASOPHILS % (AUTO) 0.9 % (0-1); EOSINOPHILS % (AUTO) 7.7 % (0-6); LYMPHOCYTES % (AUTO) 11.5 % (21-51); MEAN CORPUSCULAR HEMOGLOBIN 30.4 PG (27.0-31.0); MEAN CORPUSCULAR HGB CONC 32.8 g/dL (33.0-36.5); MEAN CORPUSCULAR VOLUME 92.6 FL (78-98); MONOCYTES % (AUTO) 6.7 % (2-12); NEUTROPHILS % (AUTO) 73.2 % (42-75); PLATELET COUNT 462 X10'3 (140-440); WHITE BLOOD COUNT 13.2 X10'3 (4.5-11.0)
[2020-08-24 04:33] LABS: PARTIAL THROMBOPLASTIN TIME 24 SECONDS (22-32)
[2020-08-24 04:35] LABS: ALANINE AMINOTRANSFERASE 86 U/L (12-78); ALBUMIN 2.2 G/DL (3.4-5.0); ALBUMIN/GLOBULIN RATIO 0.4 (1.1-1.5); ALKALINE PHOSPHATASE 99 IU/L (46-116); ANION GAP 6 (8-16); ASPARTATE AMINO TRANSFERASE 44 U/L (10-37); BILIRUBIN,DIRECT 0.2 MG/DL (0-0.3); BILIRUBIN,TOTAL 0.4 MG/DL (0.1-1.0); BLOOD UREA NITROGEN 37 MG/DL (7-18); BUN/CREATININE RATIO 49.3 (6.6-38.0); CALCIUM 9.2 MG/DL (8.5-10.1); CHLORIDE 112 MMOL/L (99-107); CREATININE 0.75 MG/DL (0.40-0.90); GLUCOSE 143 MG/DL (70-104); MAGNESIUM 2.5 MG/DL (1.5-2.4); PHOSPHORUS 4.5 MG/DL (2.3-4.5); POTASSIUM 4.3 MMOL/L (3.5-5.1); SODIUM 148 MMOL/L (135-145); TOTAL CARBON DIOXIDE 30.3 MMOL/L (24-32); TOTAL PROTEIN 7.5 G/DL (6.4-8.2); eGFR 78 ML/MIN
[2020-08-24] MEDS: acetaminophen 325mg/10.15ml oral unit dose solution OGT PRN (06:13)
--- NOTE | 2020-08-24 06:30 | NUR ---
Patient in room ICU 2045. I have received report from Francia and had the opportunity to ask questions and assume patient care.
[2020-08-24] MEDS: LACOSAMIDE PO SCH ×2 (07:30→19:41)
[2020-08-24] MEDS: famotidine/PF 10 mg/ml inj IV SCH ×2 (07:30→19:39)
[2020-08-24] MEDS: LEVETIRACETAM IV SCH ×2 (07:31→19:44)
[2020-08-24] MEDS: NORMAL SALINE IV SCH ×2 (07:31→19:44)
[2020-08-24] MEDS: POTASSIUM BICARB 20meq eff tab 20 MEQ TABLET.EFF OGT SCH ×2 (07:34→19:42)
[2020-08-24] MEDS: aspirin 81mg tab.chew OGT SCH (07:35)
[2020-08-24] MEDS: lactobacillus rhamnosus 10,000 MMU CELLS/CAPSULE OGT SCH ×2 (07:35→19:42)
[2020-08-24] MEDS: fenofibrate 48mg tablet OGT SCH (07:39)
[2020-08-24] MEDS: docusate sodium 100mg/10ml UD cup OGT SCH ×2 (08:00→19:42)
[2020-08-24] MEDS: scopolamine 1.5mg patch.TD72 TD SCH (09:12)
[2020-08-24 09:41] LABS: BASOPHILS # (AUTO) 0.1 X10'3 (0-0.2); BASOPHILS % (AUTO) 0.9 % (0-1); EOSINOPHILS % (AUTO) 7.7 % (0-6); HEMATOCRIT 25.2 % (35.0-45.0); HEMOGLOBIN 8.5 g/dl (12.0-16.0); LYMPHOCYTES # (AUTO) 1.5 X10'3 (1.1-4.8); LYMPHOCYTES % (AUTO) 11.7 % (21-51); MEAN CORPUSCULAR HEMOGLOBIN 31.7 PG (27.0-31.0); MEAN CORPUSCULAR HGB CONC 33.8 g/dL (33.0-36.5); MEAN CORPUSCULAR VOLUME 93.9 FL (78-98); MEAN PLATELET VOLUME 8.5 FL (7.4-10.4); MONOCYTES # (AUTO) 0.7 X10'3 (0-0.9); MONOCYTES % (AUTO) 5.7 % (2-12); NEUTROPHILS # (AUTO) 9.6 X10'3 (1.8-7.7); PLATELET COUNT 487 X10'3 (140-440); RED BLOOD COUNT 2.68 X10'6 (4.20-5.60); RED CELL DISTRIBUTION WIDTH 15.1 % (11.5-14.5); WHITE BLOOD COUNT 12.9 X10'3 (4.5-11.0)
[2020-08-24 09:53] LABS: PARTIAL THROMBOPLASTIN TIME 24 SECONDS (22-32)
[2020-08-24 09:54] LABS: ALANINE AMINOTRANSFERASE 81 U/L (12-78); ALBUMIN 2.2 G/DL (3.4-5.0); ALBUMIN/GLOBULIN RATIO 0.4 (1.1-1.5); ALKALINE PHOSPHATASE 96 IU/L (46-116); ANION GAP 5 (8-16); ASPARTATE AMINO TRANSFERASE 45 U/L (10-37); BILIRUBIN,TOTAL 0.5 MG/DL (0.1-1.0); BLOOD UREA NITROGEN 34 MG/DL (7-18); BUN/CREATININE RATIO 49.3 (6.6-38.0); CALCIUM 9.4 MG/DL (8.5-10.1); CHLORIDE 112 MMOL/L (99-107); CREATININE 0.69 MG/DL (0.40-0.90); GLUCOSE 128 MG/DL (70-104); POTASSIUM 4.2 MMOL/L (3.5-5.1); SODIUM 148 MMOL/L (135-145); TOTAL CARBON DIOXIDE 30.7 MMOL/L (24-32); TOTAL PROTEIN 7.4 G/DL (6.4-8.2); eGFR 85 ML/MIN
[2020-08-24 09:55] LABS: BILIRUBIN,DIRECT 0.2 MG/DL (0-0.3); MAGNESIUM 2.5 MG/DL (1.5-2.4)
[2020-08-24] MEDS: dexmedetomidine/D5W 100mL 100 ML IV SCH (10:32)
--- NOTE | 2020-08-24 11:44 | NUR ---
Noted pt has been made DNR w/ comfort care. [facility] 08/21. Will continue to monitor. Recommendations: 1) bowel care per rx Addendum: 08/24/20 at [address] Amended: Links added.
[2020-08-24 16:07] LABS: BASOPHILS # (AUTO) 0.1 X10'3 (0-0.2); BASOPHILS % (AUTO) 0.9 % (0-1); EOSINOPHILS # (AUTO) 1.2 X10'3 (0-0.9); EOSINOPHILS % (AUTO) 10.1 % (0-6); HEMATOCRIT 26.4 % (35.0-45.0); HEMOGLOBIN 8.5 g/dl (12.0-16.0); LYMPHOCYTES # (AUTO) 1.2 X10'3 (1.1-4.8); MEAN CORPUSCULAR HGB CONC 32.2 g/dL (33.0-36.5); MEAN CORPUSCULAR VOLUME 93.1 FL (78-98); MEAN PLATELET VOLUME 8.5 FL (7.4-10.4); MONOCYTES # (AUTO) 0.8 X10'3 (0-0.9); MONOCYTES % (AUTO) 6.6 % (2-12); NEUTROPHILS # (AUTO) 8.5 X10'3 (1.8-7.7); NEUTROPHILS % (AUTO) 72.4 % (42-75); PLATELET COUNT 453 X10'3 (140-440); RED BLOOD COUNT 2.83 X10'6 (4.20-5.60); WHITE BLOOD COUNT 11.8 X10'3 (4.5-11.0)
[2020-08-24 16:13] LABS: PARTIAL THROMBOPLASTIN TIME 23 SECONDS (22-32)
[2020-08-24 16:15] LABS: ALANINE AMINOTRANSFERASE 75 U/L (12-78); ALBUMIN 2.2 G/DL (3.4-5.0); ALBUMIN/GLOBULIN RATIO 0.4 (1.1-1.5); ALKALINE PHOSPHATASE 95 IU/L (46-116); ANION GAP 6 (8-16); ASPARTATE AMINO TRANSFERASE 35 U/L (10-37); BILIRUBIN,DIRECT 0.2 MG/DL (0-0.3); BILIRUBIN,TOTAL 0.5 MG/DL (0.1-1.0); BLOOD UREA NITROGEN 30 MG/DL (7-18); BUN/CREATININE RATIO 44.1 (6.6-38.0); CALCIUM 9.3 MG/DL (8.5-10.1); CHLORIDE 112 MMOL/L (99-107); CREATININE 0.68 MG/DL (0.40-0.90); GLUCOSE 118 MG/DL (70-104); MAGNESIUM 2.5 MG/DL (1.5-2.4); POTASSIUM 3.7 MMOL/L (3.5-5.1); SODIUM 148 MMOL/L (135-145); TOTAL PROTEIN 7.4 G/DL (6.4-8.2); eGFR 87 ML/MIN
[2020-08-24] MEDS: insulin glargine (Lantus) pen - multi-dose SQ SCH (21:00)
[2020-08-24 22:03] LABS: BASOPHILS # (AUTO) 0.1 X10'3 (0-0.2); BASOPHILS % (AUTO) 0.6 % (0-1); EOSINOPHILS # (AUTO) 1.1 X10'3 (0-0.9); EOSINOPHILS % (AUTO) 9.8 % (0-6); HEMATOCRIT 24.7 % (35.0-45.0); HEMOGLOBIN 8.5 g/dl (12.0-16.0); LYMPHOCYTES % (AUTO) 9.2 % (21-51); MEAN CORPUSCULAR HEMOGLOBIN 32.2 PG (27.0-31.0); MEAN CORPUSCULAR HGB CONC 34.4 g/dL (33.0-36.5); MEAN CORPUSCULAR VOLUME 93.5 FL (78-98); MONOCYTES # (AUTO) 0.7 X10'3 (0-0.9); MONOCYTES % (AUTO) 6.5 % (2-12); NEUTROPHILS # (AUTO) 8.1 X10'3 (1.8-7.7); NEUTROPHILS % (AUTO) 73.9 % (42-75); PLATELET COUNT 446 X10'3 (140-440); RED BLOOD COUNT 2.65 X10'6 (4.20-5.60); RED CELL DISTRIBUTION WIDTH 14.6 % (11.5-14.5)
[2020-08-24 22:16] LABS: PARTIAL THROMBOPLASTIN TIME 23 SECONDS (22-32)
[2020-08-24 22:18] LABS: ALANINE AMINOTRANSFERASE 67 U/L (12-78); ALBUMIN 2.1 G/DL (3.4-5.0); ALBUMIN/GLOBULIN RATIO 0.4 (1.1-1.5); ALKALINE PHOSPHATASE 97 IU/L (46-116); ANION GAP 6 (8-16); ASPARTATE AMINO TRANSFERASE 40 U/L (10-37); BILIRUBIN,DIRECT 0.2 MG/DL (0-0.3); BILIRUBIN,TOTAL 0.5 MG/DL (0.1-1.0); BLOOD UREA NITROGEN 29 MG/DL (7-18); BUN/CREATININE RATIO 44.6 (6.6-38.0); CALCIUM 9.2 MG/DL (8.5-10.1); CHLORIDE 113 MMOL/L (99-107); CREATININE 0.65 MG/DL (0.40-0.90); GLUCOSE 129 MG/DL (70-104); MAGNESIUM 2.3 MG/DL (1.5-2.4); POTASSIUM 3.6 MMOL/L (3.5-5.1); SODIUM 148 MMOL/L (135-145); TOTAL CARBON DIOXIDE 28.7 MMOL/L (24-32); TOTAL PROTEIN 7.3 G/DL (6.4-8.2); eGFR > 90 ML/MIN
[2020-08-25] VITALS (24 sets, daily range): BP systolic 97–203; BP diastolic 46–105
[2020-08-25] MEDS: mineral oil/petrolatum ophthal oint EACHEYE SCH ×4 (02:00→20:00)
[2020-08-25] MEDS: FOSphenytoin 100mg/2ml inj IV SCH ×4 (03:45→20:00)
[2020-08-25 04:17] LABS: BASOPHILS # (AUTO) 0.1 X10'3 (0-0.2); BASOPHILS % (AUTO) 0.7 % (0-1); EOSINOPHILS # (AUTO) 1.1 X10'3 (0-0.9); EOSINOPHILS % (AUTO) 10.3 % (0-6); HEMATOCRIT 26.3 % (35.0-45.0); HEMOGLOBIN 8.6 g/dl (12.0-16.0); LYMPHOCYTES % (AUTO) 8.6 % (21-51); MEAN CORPUSCULAR HEMOGLOBIN 30.6 PG (27.0-31.0); MEAN CORPUSCULAR HGB CONC 32.8 g/dL (33.0-36.5); MEAN CORPUSCULAR VOLUME 93.3 FL (78-98); MEAN PLATELET VOLUME 8.5 FL (7.4-10.4); MONOCYTES # (AUTO) 0.8 X10'3 (0-0.9); MONOCYTES % (AUTO) 7.1 % (2-12); NEUTROPHILS # (AUTO) 8.1 X10'3 (1.8-7.7); NEUTROPHILS % (AUTO) 73.3 % (42-75); PLATELET COUNT 461 X10'3 (140-440); RED BLOOD COUNT 2.82 X10'6 (4.20-5.60); RED CELL DISTRIBUTION WIDTH 14.7 % (11.5-14.5); WHITE BLOOD COUNT 11.1 X10'3 (4.5-11.0)
[2020-08-25 04:19] LABS: PARTIAL THROMBOPLASTIN TIME 23 SECONDS (22-32)
[2020-08-25 04:21] LABS: ALANINE AMINOTRANSFERASE 67 U/L (12-78); ALBUMIN 2.2 G/DL (3.4-5.0); ALBUMIN/GLOBULIN RATIO 0.4 (1.1-1.5); ALKALINE PHOSPHATASE 102 IU/L (46-116); ANION GAP 9 (8-16); ASPARTATE AMINO TRANSFERASE 30 U/L (10-37); BILIRUBIN,DIRECT 0.2 MG/DL (0-0.3); BILIRUBIN,TOTAL 0.5 MG/DL (0.1-1.0); BLOOD UREA NITROGEN 27 MG/DL (7-18); BUN/CREATININE RATIO 40.3 (6.6-38.0); CALCIUM 9.7 MG/DL (8.5-10.1); CHLORIDE 113 MMOL/L (99-107); CREATININE 0.67 MG/DL (0.40-0.90); GLUCOSE 128 MG/DL (70-104); MAGNESIUM 2.3 MG/DL (1.5-2.4); PHOSPHORUS 3.9 MG/DL (2.3-4.5); POTASSIUM 3.5 MMOL/L (3.5-5.1); SODIUM 151 MMOL/L (135-145); TOTAL CARBON DIOXIDE 28.9 MMOL/L (24-32); TOTAL PROTEIN 7.5 G/DL (6.4-8.2); TRIGLYCERIDES 224 MG/DL (20-135); eGFR 88 ML/MIN
--- NOTE | 2020-08-25 06:30 | NUR ---
Patient in room ICU 2045. I have received report from RN and had the opportunity to ask questions and assume patient care.
[2020-08-25] MEDS: LACOSAMIDE PO SCH ×2 (07:20→19:25)
[2020-08-25] MEDS: piperacillin/tazo 3.375gm/50ml 50 ML IV SCH ×2 (07:21→15:57)
[2020-08-25] MEDS: NORMAL SALINE IV SCH ×2 (07:21→19:26)
[2020-08-25] MEDS: LEVETIRACETAM IV SCH ×2 (07:21→19:26)
[2020-08-25] MEDS: lactobacillus rhamnosus 10,000 MMU CELLS/CAPSULE OGT SCH ×2 (07:24→19:25)
[2020-08-25] MEDS: famotidine/PF 10 mg/ml inj IV SCH ×2 (07:24→19:25)
[2020-08-25] MEDS: docusate sodium 100mg/10ml UD cup OGT SCH ×2 (07:26→19:24)
[2020-08-25] MEDS: methylnaltrexone br 12mg/0.6ml inj***SubQ only SQ SCH (07:26)
[2020-08-25] MEDS: POTASSIUM BICARB 20meq eff tab 20 MEQ TABLET.EFF OGT SCH ×2 (07:28→19:24)
[2020-08-25] MEDS: fenofibrate 48mg tablet OGT SCH (07:28)
[2020-08-25] MEDS: aspirin 81mg tab.chew OGT SCH (07:28)
[2020-08-25 10:43] LABS: BASOPHILS # (AUTO) 0.1 X10'3 (0-0.2); BASOPHILS % (AUTO) 0.8 % (0-1); EOSINOPHILS # (AUTO) 1.1 X10'3 (0-0.9); EOSINOPHILS % (AUTO) 9.6 % (0-6); HEMATOCRIT 25.6 % (35.0-45.0); HEMOGLOBIN 8.3 g/dl (12.0-16.0); LYMPHOCYTES # (AUTO) 1.1 X10'3 (1.1-4.8); LYMPHOCYTES % (AUTO) 9.7 % (21-51); MEAN CORPUSCULAR HEMOGLOBIN 30.5 PG (27.0-31.0); MEAN CORPUSCULAR HGB CONC 32.6 g/dL (33.0-36.5); MEAN CORPUSCULAR VOLUME 93.5 FL (78-98); MEAN PLATELET VOLUME 8.7 FL (7.4-10.4); MONOCYTES # (AUTO) 0.8 X10'3 (0-0.9); NEUTROPHILS # (AUTO) 8.2 X10'3 (1.8-7.7); NEUTROPHILS % (AUTO) 72.9 % (42-75); PLATELET COUNT 443 X10'3 (140-440); RED BLOOD COUNT 2.74 X10'6 (4.20-5.60); RED CELL DISTRIBUTION WIDTH 14.6 % (11.5-14.5); WHITE BLOOD COUNT 11.2 X10'3 (4.5-11.0)
[2020-08-25 10:55] LABS: PARTIAL THROMBOPLASTIN TIME 23 SECONDS (22-32)
[2020-08-25 10:56] LABS: ALANINE AMINOTRANSFERASE 60 U/L (12-78); ALBUMIN 2.1 G/DL (3.4-5.0); ALBUMIN/GLOBULIN RATIO 0.4 (1.1-1.5); ALKALINE PHOSPHATASE 100 IU/L (46-116); ANION GAP 6 (8-16); ASPARTATE AMINO TRANSFERASE 27 U/L (10-37); BILIRUBIN,DIRECT 0.2 MG/DL (0-0.3); BILIRUBIN,TOTAL 0.4 MG/DL (0.1-1.0); BLOOD UREA NITROGEN 24 MG/DL (7-18); BUN/CREATININE RATIO 42.1 (6.6-38.0); CALCIUM 9.4 MG/DL (8.5-10.1); CHLORIDE 114 MMOL/L (99-107); CREATININE 0.57 MG/DL (0.40-0.90); GLUCOSE 115 MG/DL (70-104); MAGNESIUM 2.2 MG/DL (1.5-2.4); POTASSIUM 3.6 MMOL/L (3.5-5.1); SODIUM 149 MMOL/L (135-145); TOTAL CARBON DIOXIDE 29.2 MMOL/L (24-32); TOTAL PROTEIN 7.3 G/DL (6.4-8.2); eGFR > 90 ML/MIN
[2020-08-25] MEDS: midazolam 100mg in NS 100ml 100 ML IV SCH (16:42)
[2020-08-25 17:14] LABS: BASOPHILS # (AUTO) 0.1 X10'3 (0-0.2); BASOPHILS % (AUTO) 0.8 % (0-1); EOSINOPHILS # (AUTO) 0.9 X10'3 (0-0.9); EOSINOPHILS % (AUTO) 8.7 % (0-6); HEMATOCRIT 23.9 % (35.0-45.0); LYMPHOCYTES # (AUTO) 1.2 X10'3 (1.1-4.8); MEAN CORPUSCULAR HEMOGLOBIN 31.4 PG (27.0-31.0); MEAN CORPUSCULAR HGB CONC 33.2 g/dL (33.0-36.5); MEAN CORPUSCULAR VOLUME 94.4 FL (78-98); MEAN PLATELET VOLUME 8.7 FL (7.4-10.4); MONOCYTES # (AUTO) 0.7 X10'3 (0-0.9); MONOCYTES % (AUTO) 6.4 % (2-12); NEUTROPHILS # (AUTO) 7.5 X10'3 (1.8-7.7); NEUTROPHILS % (AUTO) 72.1 % (42-75); PLATELET COUNT 414 X10'3 (140-440); RED BLOOD COUNT 2.54 X10'6 (4.20-5.60); RED CELL DISTRIBUTION WIDTH 14.4 % (11.5-14.5); WHITE BLOOD COUNT 10.4 X10'3 (4.5-11.0)
[2020-08-25 17:20] LABS: ABG BASE EXCESS 3.1 mmol/L (-2.0-2.0); ABG HCO3 27.5 mmol/L (22.0-26.0); ABG PCO2 (T) 41.4 mmHg (32.0-45.0); ABG PO2 (T) 93.1 mmHg (75.0-100.0); ALLEN'S TEST POSITIVE; FCOHb 0.8 % (0.0-3.9); FMetHb 0.3 % (0.0-1.5); FO2Hb 95.9 % (94-97); PATIENT TEMPERATURE 37.3; PEEP 5 cm H2O; RESPIRATORY RATE 12 b/min; TIDAL VOLUME 400 mL; TOTAL HEMOGLOBIN 7.6 G/dl (12.0-16.0)
[2020-08-25 17:23] LABS: ALANINE AMINOTRANSFERASE 54 U/L (12-78); ALBUMIN/GLOBULIN RATIO 0.4 (1.1-1.5); ALKALINE PHOSPHATASE 98 IU/L (46-116); ANION GAP 8 (8-16); ASPARTATE AMINO TRANSFERASE 24 U/L (10-37); BILIRUBIN,DIRECT 0.2 MG/DL (0-0.3); BILIRUBIN,TOTAL 0.5 MG/DL (0.1-1.0); BLOOD UREA NITROGEN 23 MG/DL (7-18); BUN/CREATININE RATIO 33.8 (6.6-38.0); CALCIUM 9.1 MG/DL (8.5-10.1); CHLORIDE 113 MMOL/L (99-107); CREATININE 0.68 MG/DL (0.40-0.90); GLUCOSE 109 MG/DL (70-104); POTASSIUM 3.2 MMOL/L (3.5-5.1); SODIUM 149 MMOL/L (135-145); TOTAL CARBON DIOXIDE 27.6 MMOL/L (24-32); TOTAL PROTEIN 6.9 G/DL (6.4-8.2); eGFR 87 ML/MIN
[2020-08-25] MEDS: POTASSIUM BICARB 20meq eff tab 20 MEQ TABLET.EFF OGT PRN (17:48)
[2020-08-25 18:05] LABS: PARTIAL THROMBOPLASTIN TIME 24 SECONDS (22-32)
[2020-08-25] MEDS: insulin glargine (Lantus) pen - multi-dose SQ SCH (21:00)
[2020-08-25 22:16] LABS: CLARITY,URINE CLEAR (Clear); COLOR,URINE YELLOW (Yellow); GLUCOSE, URINE NEGATIVE (Neg); KETONES,URINE TRACE mg/dl (Neg); LEUKOCYTE ESTERASE ,URINE SMALL (Neg); NITRITES, URINE NEGATIVE (Neg); OCCULT BLOOD,URINE LARGE (Neg); PROTEIN,URINE 30 mg/dl (Neg)
[2020-08-25 22:19] LABS: UA COLLECTION TYPE NON-SPECIFIED
[2020-08-25 22:25] LABS: BASOPHILS # (AUTO) 0.1 X10'3 (0-0.2); BASOPHILS % (AUTO) 0.9 % (0-1); EOSINOPHILS % (AUTO) 9.1 % (0-6); HEMATOCRIT 25.2 % (35.0-45.0); HEMOGLOBIN 8.4 g/dl (12.0-16.0); LYMPHOCYTES # (AUTO) 1.2 X10'3 (1.1-4.8); LYMPHOCYTES % (AUTO) 10.8 % (21-51); MEAN CORPUSCULAR HEMOGLOBIN 31.2 PG (27.0-31.0); MEAN CORPUSCULAR HGB CONC 33.4 g/dL (33.0-36.5); MEAN CORPUSCULAR VOLUME 93.3 FL (78-98); MEAN PLATELET VOLUME 8.4 FL (7.4-10.4); MONOCYTES # (AUTO) 0.8 X10'3 (0-0.9); MONOCYTES % (AUTO) 7.4 % (2-12); NEUTROPHILS # (AUTO) 7.8 X10'3 (1.8-7.7); NEUTROPHILS % (AUTO) 71.8 % (42-75); PLATELET COUNT 424 X10'3 (140-440); RED CELL DISTRIBUTION WIDTH 14.9 % (11.5-14.5); WHITE BLOOD COUNT 10.9 X10'3 (4.5-11.0)
[2020-08-25 22:27] LABS: ALANINE AMINOTRANSFERASE 55 U/L (12-78); ALBUMIN 2.2 G/DL (3.4-5.0); ALBUMIN/GLOBULIN RATIO 0.4 (1.1-1.5); ALKALINE PHOSPHATASE 107 IU/L (46-116); ANION GAP 7 (8-16); ASPARTATE AMINO TRANSFERASE 28 U/L (10-37); BILIRUBIN,DIRECT 0.3 MG/DL (0-0.3); BILIRUBIN,TOTAL 0.5 MG/DL (0.1-1.0); BLOOD UREA NITROGEN 22 MG/DL (7-18); BUN/CREATININE RATIO 32.8 (6.6-38.0); CALCIUM 9.2 MG/DL (8.5-10.1); CHLORIDE 113 MMOL/L (99-107); CREATININE 0.67 MG/DL (0.40-0.90); GLUCOSE 113 MG/DL (70-104); PARTIAL THROMBOPLASTIN TIME 23 SECONDS (22-32); SODIUM 148 MMOL/L (135-145); TOTAL CARBON DIOXIDE 27.7 MMOL/L (24-32); TOTAL PROTEIN 7.1 G/DL (6.4-8.2); eGFR 88 ML/MIN
[2020-08-25 22:37] LABS: BACTERIA,URINE FEW /HPF (Neg); RBC,URINE TNTC /HPF (0-2); SQUAMOUS EPITHELIAL CELL,UR FEW /LPF (FEW); YEAST MANY /HPF (NEGATIVE)
[2020-08-26] VITALS (16 sets, daily range): BP systolic 94–171; BP diastolic 43–96
[2020-08-26] MEDS: piperacillin/tazo 3.375gm/50ml 50 ML IV SCH ×2 (02:17→08:38)
[2020-08-26 03:51] LABS: ABG BASE EXCESS 1.9 mmol/L (-2.0-2.0); ABG HCO3 26.1 mmol/L (22.0-26.0); ABG OXYGEN SATURATION 96.2 % (94-97); ABG PCO2 (T) 39.1 mmHg (32.0-45.0); ABG PO2 (T) 87.6 mmHg (75.0-100.0); ALLEN'S TEST POSITIVE; FCOHb 0.5 % (0.0-3.9); FMetHb 0.1 % (0.0-1.5); FO2Hb 95.6 % (94-97); PATIENT TEMPERATURE 37.2; PEEP 5 cm H2O; RESPIRATORY RATE 12 b/min; TIDAL VOLUME 400 mL; TOTAL HEMOGLOBIN 9.3 G/dl (12.0-16.0)
[2020-08-26 04:06] LABS: BASOPHILS # (AUTO) 0.1 X10'3 (0-0.2); EOSINOPHILS % (AUTO) 9.1 % (0-6); HEMATOCRIT 23.9 % (35.0-45.0); HEMOGLOBIN 7.9 g/dl (12.0-16.0); LYMPHOCYTES # (AUTO) 1.2 X10'3 (1.1-4.8); MEAN CORPUSCULAR VOLUME 93.9 FL (78-98); MEAN PLATELET VOLUME 8.2 FL (7.4-10.4); MONOCYTES # (AUTO) 0.7 X10'3 (0-0.9); MONOCYTES % (AUTO) 6.2 % (2-12); NEUTROPHILS # (AUTO) 7.7 X10'3 (1.8-7.7); NEUTROPHILS % (AUTO) 72.7 % (42-75); PLATELET COUNT 412 X10'3 (140-440); RED BLOOD COUNT 2.55 X10'6 (4.20-5.60); RED CELL DISTRIBUTION WIDTH 14.8 % (11.5-14.5); WHITE BLOOD COUNT 10.7 X10'3 (4.5-11.0)
[2020-08-26 04:19] LABS: PARTIAL THROMBOPLASTIN TIME 23 SECONDS (22-32)
[2020-08-26 04:20] LABS: ALANINE AMINOTRANSFERASE 52 U/L (12-78); ALBUMIN 2.1 G/DL (3.4-5.0); ALBUMIN/GLOBULIN RATIO 0.4 (1.1-1.5); ALKALINE PHOSPHATASE 106 IU/L (46-116); ANION GAP 7 (8-16); ASPARTATE AMINO TRANSFERASE 25 U/L (10-37); BILIRUBIN,DIRECT 0.2 MG/DL (0-0.3); BILIRUBIN,TOTAL 0.4 MG/DL (0.1-1.0); BLOOD UREA NITROGEN 20 MG/DL (7-18); BUN/CREATININE RATIO 33.9 (6.6-38.0); CALCIUM 9.4 MG/DL (8.5-10.1); CHLORIDE 113 MMOL/L (99-107); CREATININE 0.59 MG/DL (0.40-0.90); GLUCOSE 102 MG/DL (70-104); MAGNESIUM 1.9 MG/DL (1.5-2.4); POTASSIUM 3.6 MMOL/L (3.5-5.1); SODIUM 149 MMOL/L (135-145); TOTAL CARBON DIOXIDE 28.8 MMOL/L (24-32); TOTAL PROTEIN 6.8 G/DL (6.4-8.2); eGFR > 90 ML/MIN
[2020-08-26] MEDS: POTASSIUM BICARB 20meq eff tab 20 MEQ TABLET.EFF OGT SCH (08:00)
[2020-08-26] MEDS: famotidine/PF 10 mg/ml inj IV SCH (08:00)
[2020-08-26] MEDS: mineral oil/petrolatum ophthal oint EACHEYE SCH ×2 (08:00→14:00)
[2020-08-26] MEDS: docusate sodium 100mg/10ml UD cup OGT SCH (08:00)
[2020-08-26] MEDS: lactobacillus rhamnosus 10,000 MMU CELLS/CAPSULE OGT SCH (08:00)
[2020-08-26] MEDS: aspirin 81mg tab.chew OGT SCH (08:30)
[2020-08-26] MEDS: fenofibrate 48mg tablet OGT SCH (08:30)
[2020-08-26] MEDS: LACOSAMIDE PO SCH (08:39)
[2020-08-26] MEDS: LEVETIRACETAM IV SCH (08:42)
[2020-08-26] MEDS: NORMAL SALINE IV SCH (08:42)
[2020-08-26] MEDS: FOSphenytoin 100mg/2ml inj IV SCH ×2 (08:52→14:00)
[2020-08-26 10:49] LABS: BASOPHILS # (AUTO) 0.1 X10'3 (0-0.2); HEMOGLOBIN 8.6 g/dl (12.0-16.0); LYMPHOCYTES # (AUTO) 1.3 X10'3 (1.1-4.8); LYMPHOCYTES % (AUTO) 10.2 % (21-51); MEAN CORPUSCULAR HEMOGLOBIN 31.2 PG (27.0-31.0); MEAN CORPUSCULAR HGB CONC 33.2 g/dL (33.0-36.5); MEAN PLATELET VOLUME 8.2 FL (7.4-10.4); MONOCYTES # (AUTO) 0.8 X10'3 (0-0.9); MONOCYTES % (AUTO) 6.4 % (2-12); NEUTROPHILS # (AUTO) 9.4 X10'3 (1.8-7.7); NEUTROPHILS % (AUTO) 74.4 % (42-75); PLATELET COUNT 469 X10'3 (140-440); RED BLOOD COUNT 2.76 X10'6 (4.20-5.60); RED CELL DISTRIBUTION WIDTH 14.4 % (11.5-14.5); WHITE BLOOD COUNT 12.6 X10'3 (4.5-11.0)
[2020-08-26 10:58] LABS: PARTIAL THROMBOPLASTIN TIME 23 SECONDS (22-32)
[2020-08-26 11:17] LABS: ALANINE AMINOTRANSFERASE 57 U/L (12-78); ALBUMIN 2.2 G/DL (3.4-5.0); ALBUMIN/GLOBULIN RATIO 0.4 (1.1-1.5); ALKALINE PHOSPHATASE 117 IU/L (46-116); ANION GAP 9 (8-16); ASPARTATE AMINO TRANSFERASE 31 U/L (10-37); BILIRUBIN,DIRECT 0.2 MG/DL (0-0.3); BILIRUBIN,TOTAL 0.5 MG/DL (0.1-1.0); BLOOD UREA NITROGEN 21 MG/DL (7-18); CALCIUM 9.4 MG/DL (8.5-10.1); CHLORIDE 112 MMOL/L (99-107); GLUCOSE 110 MG/DL (70-104); MAGNESIUM 1.9 MG/DL (1.5-2.4); POTASSIUM 3.6 MMOL/L (3.5-5.1); SODIUM 147 MMOL/L (135-145); TOTAL CARBON DIOXIDE 26.3 MMOL/L (24-32); TOTAL PROTEIN 7.3 G/DL (6.4-8.2); eGFR > 90 ML/MIN
[2020-08-26 14:10] LABS: CLARITY,URINE TURBID (Clear); COLOR,URINE YELLOW (Yellow); GLUCOSE, URINE NEGATIVE (Neg); KETONES,URINE TRACE mg/dl (Neg); LEUKOCYTE ESTERASE ,URINE SMALL (Neg); NITRITES, URINE NEGATIVE (Neg); OCCULT BLOOD,URINE LARGE (Neg); PH,URINE 5.5 (4.8-8.0); PROTEIN,URINE 100 mg/dl (Neg)
[2020-08-26 14:18] LABS: UA COLLECTION TYPE NON-SPECIFIED
[2020-08-26 14:24] LABS: SQUAMOUS EPITHELIAL CELL,UR FEW /LPF (FEW); TRANSITIONAL EPI CELLS,URINE FEW /HPF
[2020-08-26 14:25] LABS: CAL OXALATE CRYSTALS 1+ /HPF (NEGATIVE)
[2020-08-26 14:30] LABS: WBC CLUMPS,URINE FEW /HPF (NEGATIVE); YEAST MANY /HPF (NEGATIVE)
[2020-08-26 14:31] LABS: WBC,URINE 50-100 /HPF (0-4)
[2020-08-26 14:32] LABS: RBC,URINE 20-50 /HPF (0-2)
[2020-08-26 14:36] LABS: BACTERIA,URINE FEW /HPF (Neg)
[2020-08-26] MEDS ORDERED: morphine 10mg/ml inj. IV PRN (15:30)
[2020-08-26] MEDS ORDERED: LORazepam 2 mg/ml vial IV PRN (15:30)
--- NOTE | 2020-08-26 16:00 | NUR ---
Donor Network team at bedside. Pt transferred on hospital bed to PACU.
[2020-08-26] MEDS ORDERED: heparin 10,000 units/1 ML INJ HE ONE (16:30)
[2020-08-26] MEDS ORDERED: heparin 10,000 units/1 ML INJ IV PRN (16:55)
--- NOTE | 2020-08-26 20:25 | NUR ---
Pt transferred from ICU to PACU at approx 1615. Donor team, PACU and PAINT SPECIALIST, RT, and ELIZABETH Hanley at bedside. Heparin given at 1657. Pt exubated to comfort care at 1703. Comfort care meds administered to pt as needed. After expiration, pt transferred to OR accompanied by RN, donor team, and Dr. Batres at 1808. Pt transferred back to PACU rm 2 after surgery. Mortuary called and pt remains in PACU waiting for pickup by Rj'mila with RN present.
== END 2020-08-26 22:09 | disposition expired | DRG 207 ==
LOC: ER 06:30 → ED HOLD 08:54 → ICU 2S 11:12 → PACU 08-26 18:02
PROVIDERS: ADMIT Internal Medicine Critical Care Medicine; ATTEND Internal Medicine Critical Care Medicine
PROC: 03HY33Z Insertion of Infusion Device into Upper Artery, Percutaneous Approach (ICD-10-PCS; 2020-07-27)
PROC: 5A1955Z Respiratory Ventilation, Greater than 96 Consecutive Hours (ICD-10-PCS; principal; 2020-07-29)
PROC: 0BH17EZ Insertion of Endotracheal Airway into Trachea, Via Natural or Artificial Opening (ICD-10-PCS; 2020-07-29)
PROC: 5A12012 Performance of Cardiac Output, Single, Manual (ICD-10-PCS; 2020-07-29)
PROC: 4A00X4Z Measurement of Central Nervous Electrical Activity, External Approach (ICD-10-PCS; 2020-08-05)
PROC: 4A00X4Z Measurement of Central Nervous Electrical Activity, External Approach (ICD-10-PCS; 2020-08-08)
PROC: 05HY33Z Insertion of Infusion Device into Upper Vein, Percutaneous Approach (ICD-10-PCS; 2020-08-09)
PROC: 4A00X4Z Measurement of Central Nervous Electrical Activity, External Approach (ICD-10-PCS; 2020-08-10)
PROC: 4A00X4Z Measurement of Central Nervous Electrical Activity, External Approach (ICD-10-PCS; 2020-08-13)
PROC: 4A00X4Z Measurement of Central Nervous Electrical Activity, External Approach (ICD-10-PCS; 2020-08-15)
PROC: 4A00X4Z Measurement of Central Nervous Electrical Activity, External Approach (ICD-10-PCS; 2020-08-19)
PROC: 30233N1 Transfusion of Nonautologous Red Blood Cells into Peripheral Vein, Percutaneous Approach (ICD-10-PCS; 2020-08-23)
DX: J69.0 Pneumonitis due to inhalation of food and vomit (principal); J96.00 Acute respiratory failure, unspecified whether with hypoxia or hypercapnia; S22.41XA Multiple fractures of ribs, right side, initial encounter for closed fracture; N17.9 Acute kidney failure, unspecified; G93.1 Anoxic brain damage, not elsewhere classified; I46.9 Cardiac arrest, cause unspecified; F17.200 Nicotine dependence, unspecified, uncomplicated; G40.901 Epilepsy, unspecified, not intractable, with status epilepticus; I12.9 Hypertensive chronic kidney disease with stage 1 through stage 4 chronic kidney disease, or unspecified chronic kidney disease; I25.10 Atherosclerotic heart disease of native coronary artery without angina pectoris; N18.9 Chronic kidney disease, unspecified; X58.XXXA Exposure to other specified factors, initial encounter; I25.2 Old myocardial infarction; I73.9 Peripheral vascular disease, unspecified; Y93.89 Activity, other specified; Y92.89 Other specified places as the place of occurrence of the external cause; Y99.8 Other external cause status; Z66 Do not resuscitate; Z82.0 Family history of epilepsy and other diseases of the nervous system; Z90.710 Acquired absence of both cervix and uterus; Z20.828 Contact with and (suspected) exposure to other viral communicable diseases; Z52.9 Donor of unspecified organ or tissue
CPT/HCPCS: 36415; 36430; 36573; 36600; 70551; 71045; 71250; 74176; 80048; 80053; 80069; 80185; 80202; 81001; 82248; 82803; 82810; 82948; 83036; 83605; 83735; 83880; 84100; 84132; 84134; 84145; 84478; 84484; 85007; 85008; 85018; 85025; 85610; 85730; 86885; 86900; 86901; 86920; 87040; 87070; 87081; 87635; 93005; 93306; 93308; 94002; 94003; 94640; 94760; 94799; 95816; 95951; 96365; 96375; 99291; C9803; G0378; J0171; J0456; J0692; J0696; J1644; J1815; J1940; J1953; J2020; J2212; J2250; J2270; J2543; J2704; J2930; J2997; J3010; J3370; J3475; J3480; J3490; J7030; J7040; P9016; P9045